=== PATIENT | female | born 1950 | race Caucasian/White ===

== ENCOUNTER 2018-11-26 02:38 | Inpatient (IN) | payer BC, MEDICARE, OTHER ==
[2018-11-26] MEDS ORDERED: SODIUM CHLORIDE 0.9% 1,000 ML IV STA (03:00)
[2018-11-26 03:17] LABS: Basophils # (A) 0.1 k/uL (0-0.2); Basophils % (A) 1 %; Eosinophils # (A) 0.2 k/uL (0-0.7); Eosinophils % (A) 3 %; HCT 28.9 % (34.0-46.0); HGB 8.9 gm/dL (11.4-16.0); Hypochromasia Moderate; Lymphocytes # (A) 2.1 k/uL (1.0-4.8); Lymphocytes % (A) 27 %; MCH 26.7 pg (25.0-35.0); MCV 86.2 fL (80.0-100.0); Mean Platelet Volume 7.4; Monocytes # (A) 0.4 k/uL (0-1.0); Monocytes % (A) 5 %; Neutrophils # (A) 4.9 k/uL (1.3-7.7); Neutrophils % (A) 63 %; Platelet Count 309 k/uL (150-450); Poikilocytosis Slight; RBC 3.35 m/uL (3.80-5.40); RDW 15.9 % (11.5-15.5); WBC 7.9 k/uL (3.8-10.6)
--- NOTE | 2018-11-26 03:17 | ED ---
General Adult HPI - General Chief complaint: Chest Pain Stated complaint: chest pain Source: patient Mode of arrival: ambulatory Limitations: no limitations - Related Data Home Medications Medication Instructions Recorded Confirmed ALPRAZolam [Xanax] 0.5 mg PO TID PRN 03/06/14 03/06/14 Citalopram Hydrobromide [CeleXA] 10 mg PO DAILY 03/06/14 03/06/14 Ergocalciferol [Vitamin D2 50,000 unit PO Q7D 03/06/14 03/06/14 (DRISDOL)] Famotidine [Pepcid] 20 mg PO BID 03/06/14 03/06/14 Insulin Aspart [NovoLOG Flexpen] 8 units SQ AC-SUPPER 03/06/14 03/06/14 Insulin Aspart [NovoLOG Flexpen] 20 units SQ AC-BRKFST 03/06/14 03/06/14 Insulin Aspart [NovoLOG Flexpen] 30 units SQ AC-LUNCH 03/06/14 03/06/14 Insulin Detemir [Levemir] 66 units SQ HS 03/06/14 03/06/14 Previous Rx's Medication Instructions Recorded Aspirin EC [Ecotrin Low Dose] 162 mg PO DAILY #60 tablet.dr 03/10/14 Docusate [Colace] 100 mg PO DAILY #30 cap 03/10/14 Enalapril [Vasotec] 10 mg PO BID #60 tab 03/10/14 Furosemide [Lasix] 40 mg PO DAILY #7 tab 03/10/14 HYDROcodone/APAP 5-325MG [[place] 1 - 2 each PO Q4HR PRN #30 tab 03/10/14 5-325] Metoprolol Tartrate [Lopressor] 25 mg PO BID #60 tab 03/10/14 Potassium Chloride ER [K-Dur 20] 20 meq PO BID #14 tab.er.prt 03/10/14 Rivaroxaban [Xarelto] 15 mg PO AC-SUPPER #30 tab 03/10/14 Allergies Allergy/AdvReac Type Severity Reaction Status Date / Time Environmental Allergy Unknown Uncoded 03/05/14 14:01 Review of Systems ROS Statement: Those systems with pertinent positive or pertinent negative responses have been documented in the HPI. ROS Other: All systems not noted in ROS Statement are negative. Past Medical History Past Medical History: Coronary Artery Disease (CAD), Cancer, Chest Pain / Angina , Diabetes Mellitus, Eye Disorder, GERD/Reflux, Hyperlipidemia, Hypertension, Myocardial Infarction ([place]), Respiratory Disorder, Skin Disorder Additional Past Medical History / Comment(s): diverticular disorder, sob with activity, sinus problems,psoriasischronic back pain, sciatica, arthritis, cervical cancer Last Myocardial Infarction Date:: 2006 History of Any Multi-Drug Resistant Organisms: None Reported Past Surgical History: Cholecystectomy, Heart Catheterization, Orthopedic Surgery, Tubal Ligation Additional Past Surgical History / Comment(s): heart cath 2013, left knee surgeryx3, cyst removed from right shoulder, surgery for sleep apnea and polyp removed Past Anesthesia/Blood Transfusion Reactions: Postoperative Nausea & Vomiting ( PONV) Past Psychological History: Anxiety, Depression Smoking Status: Never smoker Past Alcohol Use History: None Reported Past Drug Use History: Marijuana General Exam Limitations: no limitations Course Vital Signs 11/26/18 11/26/18 02:39 03:00 Temperature 98.4 F Pulse Rate 134 H 138 H Respiratory 26 H 18 Rate Blood Pressure 190/85 O2 Sat by Pulse 99 97 Oximetry Medical Decision Making - Medical Decision Making Dictation was produced using [employer] dictation software. please excuse any grammatical, word or spelling errors. Chief Complaint: 68-year-old female chief complaint of chest pain and dyspnea. History of Present Illness: Is is 68-year-old female. She has multiple comorbidities including coronary artery disease, CABG, dyslipidemia, hypertension. Patient states that today her main complaint is chest pressure and dyspnea. Patient denies any history of asthma or COPD. Does not have any other lung issues. Patient denies any history of blood clot. Reports that over the last 2 days she is having worsening symptoms. Everyone in her household was struck by influenza recently. She does have rhinorrhea. She says her chest pain is pressure-like sensation over her anterior chest. No radiation to the jaw or shoulders. No associated diaphoresis or nausea. She states she went outside which worsened her symptoms. Patient also has been having severe diarrhea recently. States that her diarrhea is watery she denies any abdominal tenderness. The ROS documented in this emergency department record has been reviewed and confirmed by me. Those systems with pertinent positive or negative responses have been documented in the HPI. All other systems are other negative and/or noncontributory. PHYSICAL EXAM: General Impression: Alert and oriented x3, not in acute distress HEENT: Normocephalic atraumatic, extra-ocular movements intact, pupils equal and reactive to light bilaterally, dry mucous membranes Cardiovascular: Heart regular rate and rhythm, S1&S2 audible, no murmurs, rubs or gallops Chest: Lungs clear to auscultation bilaterally, no rhonchi, no wheeze, no rales Abdomen: Bowel sounds present, abdomen soft, non-tender, non-distended, no organomegaly, obese Musculoskeletal: Pulses present and equal in all extremities, no peripheral edema Motor: Power 5/5 bilaterally, no focal deficits noted Neurological: CN II-XII grossly intact, no focal motor or sensory deficits noted Skin: Intact with no visualized rashes Psych: Normal affect and mood ED course: 68-year-old female presents with chief complaint of chest pain, dyspnea and diarrhea. Vital signs upon arrival shows heart rate of 134, respiratory rate of 26, blood pressure 190/85, rest of vital signs within acceptable limits. EKG shows sinus tachycardia with a rate of 138, QTC of 548. VT interval 182, QRS 92. Laboratory evaluation obtained. CBC unremarkable. Patient's INR is slightly supratherapeutic with an INR of 5.4. Metabolic panel shows a bump in renal markers with a creatinine 1.8. Patient has history of 0.8 creatinine. Lactic acid is 2.6. Magnesium 1.5. Troponin of 0.037, BNP of 2800. This likely troponin leak from possible new onset heart failure. Urinalysis shows findings of UTI with 35 wbc's. Patient treated with azithromycin and ceftriaxone. Patient's clinical presentation is suspicious for both pneumonia and new-onset CHF. Patient does report symptoms of orthopnea , swelling of the bilateral lower extremities. Patient has not had a cardiac ultrasound in several years. Patient's Lasix for diuresis and subungual nitroglycerin for pressure management. Nitropaste is applied. Patient be admitted to Dr. Nelson's team who is english composition teacher for Dr. Zurita. Patient given aspirin. We will order severe troponins as well. She is elevated QTC is likely secondary to hypomagnesemia. Patient given IV magnesium. - Lab Data Result diagrams: 11/26/18 02:58 11/26/18 02:58 Lab Results 11/26/18 11/26/18 11/26/18 Range/Units 02:58 02:58 02:58 WBC 7.9 (3.8-10.6) k/uL RBC 3.35 L (3.80-5.40) m/uL Hgb 8.9 L (11.4-16.0) gm/dL Hct 28.9 L (34.0-46.0) % MCV 86.2 (80.0-100.0) fL MCH 26.7 (25.0-35.0) pg MCHC 31.0 (31.0-37.0) g/dL RDW 15.9 H (11.5-15.5) % Plt Count 309 (150-450) k/uL Neutrophils % 63 % Lymphocytes % 27 % Monocytes % 5 % Eosinophils % 3 % Basophils % 1 % Neutrophils # 4.9 (1.3-7.7) k/uL Lymphocytes # 2.1 (1.0-4.8) k/uL Monocytes # 0.4 (0-1.0) k/uL Eosinophils # 0.2 (0-0.7) k/uL Basophils # 0.1 (0-0.2) k/uL Hypochromasia Moderate Poikilocytosis Slight PT (9.0-12.0) sec INR (<1.2) APTT (22.0-30.0) sec D-Dimer (<0.60) mg/L FEU Sodium 141 (137-145) mmol/L Potassium 3.9 (3.5-5.1) mmol/L Chloride 107 (98-107) mmol/L Carbon Dioxide 25 (22-30) mmol/L Anion Gap 9 mmol/L BUN 25 H (7-17) mg/dL Creatinine 1.80 H (0.52-1.04) mg/dL Est GFR (CKD-EPI)AfAm 33 (>60 ml/min/1.73 sqM) Est GFR (CKD-EPI)NonAf 29 (>60 ml/min/1.73 sqM) Glucose 251 H (74-99) mg/dL Plasma Lactic Acid Stu (0.7-2.0) mmol/L Calcium 9.1 (8.4-10.2) mg/dL Magnesium 1.5 L (1.6-2.3) mg/dL Total Bilirubin 0.7 (0.2-1.3) mg/dL AST 26 (14-36) U/L ALT 30 (9-52) U/L Alkaline Phosphatase 89 (38-126) U/L Total Creatine Kinase 169 H (30-135) U/L CK-MB (CK-2) 1.6 (0.0-2.4) ng/mL CK-MB (CK-2) Rel Index 0.9 Troponin I 0.037 H* (0.000-0.034) ng/mL NT-Pro-B Natriuret Pep pg/mL Total Protein 6.3 (6.3-8.2) g/dL Albumin 3.6 (3.5-5.0) g/dL Lipase 103 (23-300) U/L Urine Color Urine Appearance (Clear) Urine pH (5.0-8.0) Ur Specific [place] (1.001-1.035) Urine Protein (Negative) Urine Glucose (UA) (Negative) Urine Ketones (Negative) Urine Blood (Negative) Urine Nitrite (Negative) Urine Bilirubin (Negative) Urine Urobilinogen (<2.0) mg/dL Ur Leukocyte Esterase (Negative) Urine RBC (0-5) /hpf Urine WBC (0-5) /hpf Ur Squamous Epith Cells (0-4) /hpf Urine Bacteria (None) /hpf Hyaline Casts (0-2) /lpf Urine Mucus (None) /hpf 11/26/18 11/26/18 11/26/18 Range/Units 02:58 02:58 02:58 WBC (3.8-10.6) k/uL RBC (3.80-5.40) m/uL Hgb (11.4-16.0) gm/dL Hct (34.0-46.0) % MCV (80.0-100.0) fL MCH (25.0-35.0) pg MCHC (31.0-37.0) g/dL RDW (11.5-15.5) % Plt Count (150-450) k/uL Neutrophils % % Lymphocytes % % Monocytes % % Eosinophils % % Basophils % % Neutrophils # (1.3-7.7) k/uL Lymphocytes # (1.0-4.8) k/uL Monocytes # (0-1.0) k/uL Eosinophils # (0-0.7) k/uL Basophils # (0-0.2) k/uL Hypochromasia Poikilocytosis PT 52.2 H (9.0-12.0) sec INR 5.4 H* (<1.2) APTT 43.5 H (22.0-30.0) sec D-Dimer 0.21 (<0.60) mg/L FEU Sodium (137-145) mmol/L Potassium (3.5-5.1) mmol/L Chloride (98-107) mmol/L Carbon Dioxide (22-30) mmol/L Anion Gap mmol/L BUN (7-17) mg/dL Creatinine (0.52-1.04) mg/dL Est GFR (CKD-EPI)AfAm (>60 ml/min/1.73 sqM) Est GFR (CKD-EPI)NonAf (>60 ml/min/1.73 sqM) Glucose (74-99) mg/dL Plasma Lactic Acid Stu 2.6 H* (0.7-2.0) mmol/L Calcium (8.4-10.2) mg/dL Magnesium (1.6-2.3) mg/dL Total Bilirubin (0.2-1.3) mg/dL AST (14-36) U/L ALT (9-52) U/L Alkaline Phosphatase (38-126) U/L Total Creatine Kinase (30-135) U/L CK-MB (CK-2) (0.0-2.4) ng/mL CK-MB (CK-2) Rel Index Troponin I (0.000-0.034) ng/mL NT-Pro-B Natriuret Pep 2800 pg/mL Total Protein (6.3-8.2) g/dL Albumin (3.5-5.0) g/dL Lipase (23-300) U/L Urine Color Urine Appearance (Clear) Urine pH (5.0-8.0) Ur Specific [place] (1.001-1.035) Urine Protein (Negative) Urine Glucose (UA) (Negative) Urine Ketones (Negative) Urine Blood (Negative) Urine Nitrite (Negative) Urine Bilirubin (Negative) Urine Urobilinogen (<2.0) mg/dL Ur Leukocyte Esterase (Negative) Urine RBC (0-5) /hpf Urine WBC (0-5) /hpf Ur Squamous Epith Cells (0-4) /hpf Urine Bacteria (None) /hpf Hyaline Casts (0-2) /lpf Urine Mucus (None) /hpf 11/26/18 Range/Units 03:39 WBC (3.8-10.6) k/uL RBC (3.80-5.40) m/uL Hgb (11.4-16.0) gm/dL Hct (34.0-46.0) % MCV (80.0-100.0) fL MCH (25.0-35.0) pg MCHC (31.0-37.0) g/dL RDW (11.5-15.5) % Plt Count (150-450) k/uL Neutrophils % % Lymphocytes % % Monocytes % % Eosinophils % % Basophils % % Neutrophils # (1.3-7.7) k/uL Lymphocytes # (1.0-4.8) k/uL Monocytes # (0-1.0) k/uL Eosinophils # (0-0.7) k/uL Basophils # (0-0.2) k/uL Hypochromasia Poikilocytosis PT (9.0-12.0) sec INR (<1.2) APTT (22.0-30.0) sec D-Dimer (<0.60) mg/L FEU Sodium (137-145) mmol/L Potassium (3.5-5.1) mmol/L Chloride (98-107) mmol/L Carbon Dioxide (22-30) mmol/L Anion Gap mmol/L BUN (7-17) mg/dL Creatinine (0.52-1.04) mg/dL Est GFR (CKD-EPI)AfAm (>60 ml/min/1.73 sqM) Est GFR (CKD-EPI)NonAf (>60 ml/min/1.73 sqM) Glucose (74-99) mg/dL Plasma Lactic Acid Stu (0.7-2.0) mmol/L Calcium (8.4-10.2) mg/dL Magnesium (1.6-2.3) mg/dL Total Bilirubin (0.2-1.3) mg/dL AST (14-36) U/L ALT (9-52) U/L Alkaline Phosphatase (38-126) U/L Total Creatine Kinase (30-135) U/L CK-MB (CK-2) (0.0-2.4) ng/mL CK-MB (CK-2) Rel Index Troponin I (0.000-0.034) ng/mL NT-Pro-B Natriuret Pep pg/mL Total Protein (6.3-8.2) g/dL Albumin (3.5-5.0) g/dL Lipase (23-300) U/L Urine Color Yellow Urine Appearance Cloudy H (Clear) Urine pH 5.5 (5.0-8.0) Ur Specific [place] 1.019 (1.001-1.035) Urine Protein 2+ H (Negative) Urine Glucose (UA) 1+ H (Negative) Urine Ketones Negative (Negative) Urine Blood Negative (Negative) Urine Nitrite Negative (Negative) Urine Bilirubin Negative (Negative) Urine Urobilinogen <2.0 (<2.0) mg/dL Ur Leukocyte Esterase Negative (Negative) Urine RBC 12 H (0-5) /hpf Urine WBC 35 H (0-5) /hpf Ur Squamous Epith Cells 12 H (0-4) /hpf Urine Bacteria Few H (None) /hpf Hyaline Casts 5 H (0-2) /lpf Urine Mucus Rare H (None) /hpf Disposition Clinical Impression: CHRISTOPHER (acute kidney injury), Acute decompensated heart failure, Dehydration, Pneumonia Disposition: ADMITTED IP TO THIS HOSP Condition: Fair Referrals: Dawit Frias MD [Primary Care Provider] - 1-2 days Decision Time: 04:13
--- NOTE | 2018-11-26 03:24 | XR ---
EXAMINATION TYPE: XR chest 2V DATE OF EXAM: 11/26/2018 COMPARISON: 03/09/2014 HISTORY: Chest pain TECHNIQUE: Frontal and lateral views of the chest are obtained. FINDINGS: Heart is slightly enlarged. There is some infiltrate at the left cardiac border. There is no heart failure. There are sternal wires. There are chest leads. Bony thorax is intact. IMPRESSION: There is some infiltrate in the left lower lobe consistent with pneumonia that is probab ly new compared to old chest x-ray. No heart failure seen. Mild cardiomegaly. There is clearing of sm all left pleural effusion compared to old exam.
[2018-11-26] MEDS ORDERED: AZITHROMYCIN 500 MG in DEXTROSE 5% IN WATER 250 ML IVPB STA ×2 (03:27)
[2018-11-26 03:29] LABS: Albumin 3.6 g/dL (3.5-5.0); Calcium 9.1 mg/dL (8.4-10.2); Magnesium 1.5 mg/dL (1.6-2.3); Potassium 3.9 mmol/L (3.5-5.1); Total Bilirubin 0.7 mg/dL (0.2-1.3); Total Protein 6.3 g/dL (6.3-8.2)
[2018-11-26 03:36] LABS: D-Dimer 0.21 mg/L FEU (<0.60); Partial Thromboplastin Time 43.5 sec (22.0-30.0); Prothrombin Time 52.2 sec (9.0-12.0)
[2018-11-26 03:39] LABS: INR 5.4 (<1.2)
[2018-11-26 03:45] LABS: Creatine Kinase MB 1.6 ng/mL (0.0-2.4)
[2018-11-26 03:48] LABS: Troponin I 0.037 ng/mL (0.000-0.034)
[2018-11-26] MEDS ORDERED: METOCLOPRAMIDE 5 MG/ML 2 ML VIAL IVP STA (03:58)
[2018-11-26 04:01] LABS: Appearance,Urine Cloudy (Clear); Bacteria,Urine Few /hpf; Bilirubin,Urine Negative (Negative); Blood,Urine Negative (Negative); Color,Urine Yellow; Glucose,Urine (UA) 1+ (Negative); Hyaline Casts,Urine 5 /lpf (0-2); Ketones,Urine Negative (Negative); Leukocyte Esterase,Urine Negative (Negative); Mucus,Urine Rare /hpf; Nitrite,Urine Negative (Negative); PH, Urine 5.5 (5.0-8.0); Protein,Urine 2+ (Negative); RBC,Urine 12 /hpf (0-5); Specific Gravity,Urine 1.019 (1.001-1.035); Squamous Epithelial Cell,Urine 12 /hpf (0-4); Urobilinogen,Urine <2.0 mg/dL (<2.0)
[2018-11-26] MEDS ORDERED: NITROGLYCERIN SL TABS 0.4 MG TAB SUBLINGUAL STA (04:07)
[2018-11-26] MEDS ORDERED: FUROSEMIDE 10 MG/ML 4 ML VIAL IV ONE (04:09)
[2018-11-26] MEDS ORDERED: NITROGLYCERIN OINT 1 INCH/GM PACKET TOPICAL STA (04:11)
[2018-11-26] MEDS ORDERED: ASPIRIN 81 MG PO STA (04:12)
[2018-11-26] MEDS ORDERED: NALOXONE 0.4 MG/ML 1 ML VIAL IV PRN (04:13)
[2018-11-26] MEDS ORDERED: ACETAMINOPHEN TAB 325 MG TAB PO PRN (04:13)
[2018-11-26] MEDS: MAGNESIUM SULFATE-D5W PMX 1 GM in DEXTROSE/WATER 1 100ML.BAG IVPB SCH ×4 (04:59→13:01)
[2018-11-26] MEDS ORDERED: METOPROLOL TARTRATE 5 MG/5 ML VIAL IVP STA (05:37)
[2018-11-26 06:38] VITALS: BMI 52.1
--- NOTE | 2018-11-26 08:33 | P.CRDCN ---
History of Present Illness Consult date: 11/26/18 Requesting physician: Dawit Frias Consult reason: congestive heart failure Chief complaint: Shortness of breath, leg swelling, nausea and vomiting History of present illness: This is a pleasant 68-year-old female with known history of coronary artery disease and prior bypass surgery, history of diabetes, hypertension, hyperlipidemia, paroxysmal atrial fibrillation for which she takes Coumadin, presents to the hospital with symptoms of progressively worsening shortness of breath, PND and orthopnea, bilateral lower extremity edema, as well as symptoms of diarrhea and vomiting. According to the patient the flu has recently gone through her house, she had been dealing with an upper respiratory infection as well. She states that for the past few days she's been progressively more short of breath, and has been very weak. For these reasons she came to the emergency room for further evaluation and treatment. X-ray on admission revealed infiltrate in the left lower lobe consistent with pneumonia, no heart failure, mild cardiomegaly. EKG on presentation here showed a sinus tachycardia with nonspecific ST-T wave changes. I pressure on arrival here 190/ 85, heart rate 1:30, 99% on room air. Blood pressure this morning 139/68 with a heart rate in the 130s. White blood cell count 7.9, hemoglobin 8.9, platelet count 309. INR on admission 5.4, d-dimer 0.2, sodium 141, potassium 3.9, BUN 25 and creatinine 1.8. NEC and level I.5, troponin 0.037, BNP level 2800. At the time of my examination this morning, patient is lying flat in bed, does state that her breathing is ready somewhat improved. She continues to have bilateral edema. According to the patient, she states that she did eat a significant amount of salt over the past couple of days prior to admission. Past Medical History Past Medical History: Coronary Artery Disease (CAD), Cancer, Chest Pain / Angina , Diabetes Mellitus, Eye Disorder, GERD/Reflux, Hyperlipidemia, Hypertension, Myocardial Infarction ([place]), Respiratory Disorder, Skin Disorder Additional Past Medical History / Comment(s): diverticular disorder, sob with activity, sinus problems,psoriasischronic back pain, sciatica, arthritis, cervical cancer Last Myocardial Infarction Date:: 2013 History of Any Multi-Drug Resistant Organisms: None Reported Past Surgical History: Cholecystectomy, Coronary Bypass/CABG, Heart Catheterization, Orthopedic Surgery, Tubal Ligation Additional Past Surgical History / Comment(s): heart cath 2014, left knee surgeryx3, cyst removed from right shoulder, surgery for sleep apnea and polyp removed, triple bypass surgery, patient states "she has had a surgery in her throat to help her breathe easier". Past Anesthesia/Blood Transfusion Reactions: Postoperative Nausea & Vomiting ( PONV) Past Psychological History: Anxiety, Depression Smoking Status: Never smoker Past Alcohol Use History: None Reported Past Drug Use History: Marijuana - Past Family History Daughter(s) Family Medical History: Diabetes Mellitus, Hyperlipidemia, Hypertension Mother Family Medical History: Diabetes Mellitus Additional Family Medical History / Comment(s): Patient states "she from a heart attack". Medications and Allergies Home Medications Medication Instructions Recorded Confirmed Type ALPRAZolam [Xanax] 0.5 mg PO TID PRN 03/06/14 03/06/14 History Citalopram Hydrobromide [CeleXA] 10 mg PO DAILY 03/06/14 03/06/14 History Ergocalciferol [Vitamin D2 50,000 unit PO Q7D 03/06/14 03/06/14 History (MICHAEL)] Famotidine [Pepcid] 20 mg PO BID 03/06/14 03/06/14 History Insulin Aspart [NovoLOG Flexpen] 8 units SQ AC-SUPPER 03/06/14 03/06/14 History Insulin Aspart [NovoLOG Flexpen] 20 units SQ AC-BRKFST 03/06/14 03/06/14 History Insulin Aspart [NovoLOG Flexpen] 30 units SQ AC-LUNCH 03/06/14 03/06/14 History Insulin Detemir [Levemir] 66 units SQ HS 03/06/14 03/06/14 History Aspirin EC [Ecotrin Low Dose] 162 mg PO DAILY #60 tablet. 03/10/14 Rx Docusate [Colace] 100 mg PO DAILY #30 cap 03/10/14 Rx Enalapril [Vasotec] 10 mg PO BID #60 tab 03/10/14 Rx Furosemide [Lasix] 40 mg PO DAILY #7 tab 03/10/14 Rx HYDROcodone/APAP 5-325MG [[place] 1 - 2 each PO Q4HR PRN #30 tab 03/10/14 Rx 5-325] Metoprolol Tartrate [Lopressor] 25 mg PO BID #60 tab 03/10/14 Rx Potassium Chloride ER [K-Dur 20] 20 meq PO BID #14 tab.er.prt 03/10/14 Rx Rivaroxaban [Xarelto] 15 mg PO AC-SUPPER #30 tab 03/10/14 Rx Allergies Allergy/AdvReac Type Severity Reaction Status Date / Time Environmental Allergy Unknown Uncoded 03/05/14 14:01 Physical Exam Vitals: Vital Signs Temp Pulse Pulse Resp BP BP Pulse Ox 11/26/18 06:50 97.6 F 139 H 22 139/68 95 11/26/18 04:41 134 H 16 169/88 97 11/26/18 04:18 133 H 16 159/101 99 11/26/18 03:00 138 H 18 97 11/26/18 02:39 98.4 F 134 H 26 H 190/85 99 Intake and Output 11/25/18 11/26/18 11/26/18 22:59 06:59 14:59 Other: Weight 129.27 kg PHYSICAL EXAMINATION: GENERAL: 68-year-old female in no acute distress at the time of my examination HEENT: Head is atraumatic, normocephalic. Pupils equal, round. Sclera anicteric. Conjunctiva are clear. Mucous membranes of the mouth are moist. Neck is supple. There is no elevated jugular venous pressure. No carotid bruit is heard. HEART EXAMINATION: Heart S1, S2 normal. No murmur or gallop heard. CHEST EXAMINATION: Lungs are clear with diminished air entry to bilateral bases. ABDOMEN: Soft, obese, nontender. Bowel sounds are heard. No organomegaly noted. EXTREMITIES: 1+ peripheral pulses with 1-2+ evidence of peripheral edema and no calf tenderness noted. Small ulcerations bilaterally in the lower extremities noted NEUROLOGIC patient is awake, alert and oriented 3 . . Results 11/26/18 02:58 11/26/18 02:58 Cardiac Enzymes 11/26/18 11/26/18 Range/Units 02:58 02:58 AST 26 (14-36) U/L CK-MB (CK-2) 1.6 (0.0-2.4) ng/mL Troponin I 0.037 H* (0.000-0.034) ng/mL Coagulation 11/26/18 Range/Units 02:58 PT 52.2 H (9.0-12.0) sec APTT 43.5 H (22.0-30.0) sec CBC 11/26/18 Range/Units 02:58 WBC 7.9 (3.8-10.6) k/uL RBC 3.35 L (3.80-5.40) m/uL Hgb 8.9 L (11.4-16.0) gm/dL Hct 28.9 L (34.0-46.0) % Plt Count 309 (150-450) k/uL Comprehensive Metabolic Panel 11/26/18 Range/Units 02:58 Sodium 141 (137-145) mmol/L Potassium 3.9 (3.5-5.1) mmol/L Chloride 107 (98-107) mmol/L Carbon Dioxide 25 (22-30) mmol/L BUN 25 H (7-17) mg/dL Creatinine 1.80 H (0.52-1.04) mg/dL Glucose 251 H (74-99) mg/dL Calcium 9.1 (8.4-10.2) mg/dL AST 26 (14-36) U/L ALT 30 (9-52) U/L Alkaline Phosphatase 89 (38-126) U/L Total Protein 6.3 (6.3-8.2) g/dL Albumin 3.6 (3.5-5.0) g/dL Current Medications Generic Name Dose Route Start Last Admin Trade Name Freq PRN Reason Stop Dose Admin Acetaminophen 650 mg 11/26/18 04:13 Tylenol Tab PO Q6HR PRN Mild Pain or Fever > 100.5 Naloxone HCl 0.2 mg 11/26/18 04:13 Narcan IV Q2M PRN Opioid Reversal Pantoprazole Sodium 40 mg 11/26/18 09:00 Protonix IV DAILY KILEY Intake and Output 11/25/18 11/26/18 11/26/18 22:59 06:59 14:59 Other: Weight 129.27 kg 11/26/18 02:58 11/26/18 02:58 EKG Interpretations (text) EKG shows a sinus tachycardia with nonspecific ST-T wave changes Assessment and Plan Plan: Assessment and plan #1 congestive heart failure, LV function unknown, BNP level 2800. #2 recent upper respiratory infection with possible pneumonia #3 paroxysmal atrial fibrillation, on Coumadin for anticoagulation, INR elevated at 5.4 #4 renal insufficiency #5 elevated plasma lactic acid level #6 hypomagnesemia #7 abnormal troponin, could be secondary to supply and demand mismatch, patient denies having any chest discomfort. #8 known history of coronary artery disease with prior bypass surgery #9 accelerated hypertension #10 diabetes #11 hyperlipidemia Plan We will obtain an echocardiogram with Doppler study. We'll also obtain 2 subsequent troponins. Coumadin is on hold because of elevated INR. We'll put the patient on a baby aspirin daily, changed to IV Lasix for 24 hours, decrease lisinopril to 20 mg daily she is currently on 20 mg by mouth twice a day, increase dose of beta rafael for more optimal blood pressure and heart rate control. Further recommendations to follow. DNP note has been reviewed, I agree with a documented findings and plan of care. Patient was seen and examined.
--- NOTE | 2018-11-26 08:47 | P.HPIM ---
History of Present Illness Chief complaint Shortness of breath and chest pain. History of present illness Patient presented early this morning to the emergency room with complaints of increasing shortness of breath. Inability to walk cause of being tired. Some left upper chest pain that radiated to the back when she was lying down. Apparently her symptoms have gradually worsened over the past 1-2 days prior to admission. The pain became worse the morning of admission and she was brought to the emergency room. Patient has had some cough. No definite fevers. Apparently her and her family had a flulike illness several days prior to this starting. She is also had some loose stools. She denies any blood in her stools or melena. She has had a couple episodes of nausea and vomiting but denies abdominal pain. Past medical history Patient has had previous coronary artery bypass surgery back in 2013. Diabetes, on insulin for control. Hypertension Obesity Hyperlipidemia Chronic kidney disease stage III History of paroxysmal atrial fibrillation History of anxiety and depression Chronic pain for which she is on [place] which consists of arthritic pains of the knees and back. Surgical history includes the coronary artery bypass surgery in 2013, previous hysterectomy and cholecystectomy. Left knee surgery. No definite known ALLERGIES Home medications Xarelto 15 mg before supper Potassium chloride 20 mEq twice a day Lopressor 25 mg twice a day Levemir 66 units subcu at at bedtime NovoLog flex plan 20 units before breakfast, 30 units before lunch and 8 units before supper [place] for chronic pain 5-325 one to 2 tablets every 4 hours as needed Lasix 40 mg daily Pepcid 20 mg twice a day Vitamin D2 50,000 units weekly Enalapril 10 mg twice a day Colace 100 mg daily Celexa 10 mg daily Aspirin 162 mg daily Xanax 0.53 times a day for anxiety as needed Review of systems As mentioned in the history of present illness. No unusual headaches or visual disturbances. Some cough with minimal phlegm production. Dyspnea on exertion. Chest pain when lying flat. No chest pain with exertion. Nausea and diarrhea as mentioned above. No hematochezia or hematemesis. Family history Is positive for diabetes Social history No history of smoking. No excessive alcohol usage. Patient apparently lives with her daughter. Her several years ago. Physical examination Patient is aroused lying in bed. She does not appear to be in any acute distress. Temperature is 97.6 with a pulse of 139, respirations 22 and blood pressure 139/ 68 with a 95% saturation on 2 L nasal cannula Head is atraumatic. She does look mildly pale. Neck as not stiff. No definite adenopathy or thyromegaly detected. Lungs are generally clear. Heart tones were tachycardic. No definite murmur appreciated. Abdomen is soft and nontender without rebound, guarding or masses. Pelvic and breast exam deferred. Extremities revealed grade 1-2 edema bilaterally. No calf tenderness. Homans negative. Neurologically she is alert and oriented. No cranial nerve deficit. No focal weakness noted. Laboratory White count was 7.9 with a hemoglobin of 8.9 and a platelet count of 309 INR is elevated at 5.4. D-dimer is 0.21. PTT also elevated at 43.5. Sodium 141 with potassium 3.9. BUN of 25 with creatinine of 1.8 given her GFR of 29. Random blood sugar was 251. Lactic acid level was 2.6. Magnesium mildly low at 1.5 with a calcium of 9.1 CK 169 with a troponin of 0.037. Albumin normal at 3.6. Urine is reported as cloudy with 35 white cells but leukocyte Estrace was negative. Chest x-ray showed what appears to be an infiltrate in the left lower lobe. Mild cardiomegaly. EKG appears to show a supraventricular tachycardia with a heart rate of 138. Impressions 1. Left lower lobe pneumonia on chest x-ray. 2. Supraventricular tachycardia with a heart rate of 138. 3. Chest pain possibly related to #1. Question underlying angina. 4. Elevated coagulation studies on aspirin and Xarelto. 5. Anemia possibly related to renal failure. Other etiologies possible. 6. Chronic kidney disease stage III-4 7. Diabetes 8. Hypertension 9. Hyperlipidemia 10. Anxiety and depression 11. Obesity 12. Chronic pain from osteoarthritis, on [place]. 13. Possible underlying urinary tract infection Plan The patient has been admitted. Antibiotics to be initiated pending cultures. Some of patient's home medications were renewed. Continue beta rafael and CA inhibitor. We'll hold aspirin and Xarelto Cardiology consult Labs to workup anemia. Further recommendations pending clinical response and results of above. Past Medical History Past Medical History: Coronary Artery Disease (CAD), Cancer, Chest Pain / Angina , Diabetes Mellitus, Eye Disorder, GERD/Reflux, Hyperlipidemia, Hypertension, Myocardial Infarction (CA), Respiratory Disorder, Skin Disorder Additional Past Medical History / Comment(s): diverticular disorder, sob with activity, sinus problems,psoriasischronic back pain, sciatica, arthritis, cervical cancer Last Myocardial Infarction Date:: 2013 History of Any Multi-Drug Resistant Organisms: None Reported Past Surgical History: Cholecystectomy, Coronary Bypass/CABG, Heart Catheterization, Orthopedic Surgery, Tubal Ligation Additional Past Surgical History / Comment(s): heart cath 2014, left knee surgeryx3, cyst removed from right shoulder, surgery for sleep apnea and polyp removed, triple bypass surgery, patient states "she has had a surgery in her throat to help her breathe easier". Past Anesthesia/Blood Transfusion Reactions: Postoperative Nausea & Vomiting ( PONV) Past Psychological History: Anxiety, Depression Smoking Status: Never smoker Past Alcohol Use History: None Reported Past Drug Use History: Marijuana - Past Family History Daughter(s) Family Medical History: Diabetes Mellitus, Hyperlipidemia, Hypertension Mother Family Medical History: Diabetes Mellitus Additional Family Medical History / Comment(s): Patient states "she from a heart attack". Medications and Allergies Home Medications Medication Instructions Recorded Confirmed Type ALPRAZolam [Xanax] 0.5 mg PO TID PRN 03/06/14 03/06/14 History Citalopram Hydrobromide [CeleXA] 10 mg PO DAILY 03/06/14 03/06/14 History Ergocalciferol [Vitamin D2 50,000 unit PO Q7D 03/06/14 03/06/14 History (MICHAEL)] Famotidine [Pepcid] 20 mg PO BID 03/06/14 03/06/14 History Insulin Aspart [NovoLOG Flexpen] 8 units SQ AC-SUPPER 03/06/14 03/06/14 History Insulin Aspart [NovoLOG Flexpen] 20 units SQ AC-BRKFST 03/06/14 03/06/14 History Insulin Aspart [NovoLOG Flexpen] 30 units SQ AC-LUNCH 03/06/14 03/06/14 History Insulin Detemir [Levemir] 66 units SQ HS 03/06/14 03/06/14 History Aspirin EC [Ecotrin Low Dose] 162 mg PO DAILY #60 tablet.dr 03/10/14 Rx Docusate [Colace] 100 mg PO DAILY #30 cap 03/10/14 Rx Enalapril [Vasotec] 10 mg PO BID #60 tab 03/10/14 Rx Furosemide [Lasix] 40 mg PO DAILY #7 tab 03/10/14 Rx HYDROcodone/APAP 5-325MG [[place] 1 - 2 each PO Q4HR PRN #30 tab 03/10/14 Rx 5-325] Metoprolol Tartrate [Lopressor] 25 mg PO BID #60 tab 03/10/14 Rx Potassium Chloride ER [K-Dur 20] 20 meq PO BID #14 tab.er.prt 03/10/14 Rx Rivaroxaban [Xarelto] 15 mg PO AC-SUPPER #30 tab 03/10/14 Rx Allergies Allergy/AdvReac Type Severity Reaction Status Date / Time Environmental Allergy Unknown Uncoded 03/05/14 14:01 Physical Exam Vitals: Vital Signs Temp Pulse Pulse Resp BP BP Pulse Ox 11/26/18 06:50 97.6 F 139 H 22 139/68 95 11/26/18 04:41 134 H 16 169/88 97 11/26/18 04:18 133 H 16 159/101 99 11/26/18 03:00 138 H 18 97 11/26/18 02:39 98.4 F 134 H 26 H 190/85 99 Intake and Output 11/25/18 11/26/18 11/26/18 22:59 06:59 14:59 Other: Weight 129.27 kg Results CBC & Chem 7: 11/26/18 02:58 11/26/18 02:58 Labs: Abnormal Lab Results - Last 24 Hours (Table) 11/26/18 11/26/18 11/26/18 Range/Units 02:58 02:58 02:58 RBC 3.35 L (3.80-5.40) m/uL Hgb 8.9 L (11.4-16.0) gm/dL Hct 28.9 L (34.0-46.0) % RDW 15.9 H (11.5-15.5) % PT (9.0-12.0) sec INR (<1.2) APTT (22.0-30.0) sec BUN 25 H (7-17) mg/dL Creatinine 1.80 H (0.52-1.04) mg/dL Glucose 251 H (74-99) mg/dL Plasma Lactic Acid Stu (0.7-2.0) mmol/L Magnesium 1.5 L (1.6-2.3) mg/dL Total Creatine Kinase 169 H (30-135) U/L Troponin I 0.037 H* (0.000-0.034) ng/mL Urine Appearance (Clear) Urine Protein (Negative) Urine Glucose (UA) (Negative) Urine RBC (0-5) /hpf Urine WBC (0-5) /hpf Ur Squamous Epith Cells (0-4) /hpf Urine Bacteria (None) /hpf Hyaline Casts (0-2) /lpf Urine Mucus (None) /hpf 11/26/18 11/26/18 11/26/18 Range/Units 02:58 02:58 03:39 RBC (3.80-5.40) m/uL Hgb (11.4-16.0) gm/dL Hct (34.0-46.0) % RDW (11.5-15.5) % PT 52.2 H (9.0-12.0) sec INR 5.4 H* (<1.2) APTT 43.5 H (22.0-30.0) sec BUN (7-17) mg/dL Creatinine (0.52-1.04) mg/dL Glucose (74-99) mg/dL Plasma Lactic Acid Stu 2.6 H* (0.7-2.0) mmol/L Magnesium (1.6-2.3) mg/dL Total Creatine Kinase (30-135) U/L Troponin I (0.000-0.034) ng/mL Urine Appearance Cloudy H (Clear) Urine Protein 2+ H (Negative) Urine Glucose (UA) 1+ H (Negative) Urine RBC 12 H (0-5) /hpf Urine WBC 35 H (0-5) /hpf Ur Squamous Epith Cells 12 H (0-4) /hpf Urine Bacteria Few H (None) /hpf Hyaline Casts 5 H (0-2) /lpf Urine Mucus Rare H (None) /hpf Thrombosis Risk Factor Assmnt - Choose All That Apply Any of the Below Risk Factors Present?: Yes Each Factor Represents 1 point: Heart failure (<1month), Swollen legs (current) Other Risk Factors: Yes Each Risk Factor Represents 2 Points: Age 61-74 years Each Risk Factor Represents 3 Points: Family history of DVT/PE Other congenital or acquired thrombophilia - If yes, enter type in comment: No Thrombosis Risk Factor Assessment Total Risk Factor Score: 7 Thrombosis Risk Factor Assessment Level: High Risk
[2018-11-26] MEDS ORDERED: FUROSEMIDE 40 MG TAB PO SCH (09:00)
[2018-11-26] MEDS ORDERED: METOPROLOL TARTRATE 25 MG TAB PO SCH (09:00)
[2018-11-26] MEDS ORDERED: LISINOPRIL 20 MG TAB PO SCH (09:00)
[2018-11-26] MEDS: FUROSEMIDE 10 MG/ML 4 ML VIAL IV SCH ×2 (09:24→20:13)
[2018-11-26] MEDS: ASPIRIN 81 MG PO SCH (09:24)
[2018-11-26] MEDS: FAMOTIDINE 20 MG TAB PO SCH (09:24)
[2018-11-26] MEDS: CITALOPRAM HYDROBROMIDE 10 MG TAB PO SCH (09:24)
[2018-11-26] MEDS: LISINOPRIL 20 MG TAB PO SCH (09:24)
[2018-11-26] MEDS: PANTOPRAZOLE 40 MG/10 ML VIAL IV SCH (09:25)
[2018-11-26] MEDS: POTASSIUM CHLORIDE ER 20 MEQ TAB.ER PO SCH ×2 (09:25→20:12)
[2018-11-26] MEDS: METOPROLOL TARTRATE 50 MG TAB PO SCH ×3 (09:25→21:28)
[2018-11-26 09:31] LABS: Creatine Kinase MB 1.6 ng/mL (0.0-2.4)
[2018-11-26 09:36] LABS: Troponin I 0.059 ng/mL (0.000-0.034)
[2018-11-26] MEDS: ALPRAZolam 0.5 MG TAB PO PRN ×2 (11:00→17:10)
[2018-11-26 11:37] LABS: Glucose,Whole Blood 218 mg/dL (75-99)
[2018-11-26] MEDS: INSULIN ASPART 100 UNIT/ML 1 ML 10 ML VIAL SQ SCH ×3 (13:01→21:25)
[2018-11-26 15:55] LABS: Creatine Kinase MB 1.6 ng/mL (0.0-2.4)
[2018-11-26 15:58] LABS: Troponin I 0.094 ng/mL (0.000-0.034)
[2018-11-26 16:40] LABS: Glucose,Whole Blood 112 mg/dL (75-99)
--- NOTE | 2018-11-26 16:57 | ECHOF ---
Referral Reason:sob MEASUREMENTS -------- HEIGHT: 157.5 cm WEIGHT: 128.8 kg BP: 139/68 IVSd: 1.2 cm (0.6 - 1.1) LVIDd: 4.6 cm (3.9 - 5.3) LVPWd: 1.3 cm (0.6 - 1.1) IVSs: 1.9 cm LVIDs: 3.5 cm LVPWs: 1.8 cm LA Diam: 3.9 cm (2.7 - 3.8) RVIDd: 2.6 cm (< 3.3) LAESV Index (A-L): 25.52 ml/m Ao Diam: 2.7 cm (2.0 - 3.7) AV Cusp: 1.9 cm (1.5 - 2.6) EPSS: 0.4 cm RAP: 15.00 mmHg RVSP: 48.54 mmHg MV EF SLOPE: 174.72 mm/s (70 - 150) MV EXCURSION: 18.74 mm (> 18.000) FINDINGS -------- Atrial fibrillation. This was a technically difficult study with suboptimal views. The left ventricular size is normal. There is mild concentric left ventricular hypertrophy. Overa ll left ventricular systolic function is mild-moderately impaired with, an EF between 40 - 45 %. The right ventricle is normal in size. Normal LA size by volume 22+/-6 ml/m2. The right atrium is normal in size. Lumason used There is mild aortic valve sclerosis. Mild mitral annular calcification present. Mild mitral regurgitation is present. Mild tricuspid regurgitation present. There is moderate pulmonary hypertension. The right ventric ular systolic pressure, as measured by Doppler, is 48.54mmHg. Trace/mild (physiologic) pulmonic regurgitation. The aortic root size is normal. The inferior vena cava is dilated with no significant inspiratory collapse which is consistent estima stu right atrial pressure of >15 mmHg. There is no pericardial effusion. CONCLUSIONS -------- 1. Atrial fibrillation. 2. This was a technically difficult study with suboptimal views. 3. The left ventricular size is normal. 4. There is mild concentric left ventricular hypertrophy. 5. Overall left ventricular systolic function is mild-moderately impaired with, an EF between 40 - 45 %. 6. The right ventricle is normal in size. 7. Normal LA size by volume 22+/-6 ml/m2. 8. The right atrium is normal in size. 9. Lumason used 10. There is mild aortic valve sclerosis. 11. Mild mitral annular calcification present. 12. Mild mitral regurgitation is present. 13. Mild tricuspid regurgitation present. 14. There is moderate pulmonary hypertension. 15. The right ventricular systolic pressure, as measured by Doppler, is 48.54mmHg. 16. Trace/mild (physiologic) pulmonic regurgitation. 17. The aortic root size is normal. 18. The inferior vena cava is dilated with no significant inspiratory collapse which is consistent es timated right atrial pressure of >15 mmHg. 19. There is no pericardial effusion. TECHNICAL PUBLICATIONS WRITER: Anushka Pineda RDCS
[2018-11-26] MEDS: HYDROcodone/APAP 5-325MG 1 EACH TAB PO PRN (20:12)
[2018-11-26] MEDS: ATORVASTATIN 40 MG TAB PO SCH (20:12)
[2018-11-26 20:50] LABS: Glucose,Whole Blood 155 mg/dL (75-99)
[2018-11-26] MEDS ORDERED: INSULIN DETEMIR 100 UNIT/ML 10 ML VIAL SQ SCH (21:00)
[2018-11-26] MEDS: INSULIN DETEMIR 100 UNIT/ML 10 ML VIAL SQ SCH (21:26)
[2018-11-27 04:58] LABS: Iron Saturation 5.23 (12.00-45.00)
[2018-11-27 06:43] LABS: Glucose,Whole Blood 57 mg/dL (75-99)
[2018-11-27] MEDS: INSULIN ASPART 100 UNIT/ML 1 ML 10 ML VIAL SQ SCH ×4 (06:45→23:58)
[2018-11-27 07:11] LABS: Glucose,Whole Blood 46 mg/dL (75-99)
[2018-11-27 07:11] LABS: Glucose,Whole Blood 45 mg/dL (75-99)
[2018-11-27 07:33] LABS: Basophils # (A) 0.1 k/uL (0-0.2); Basophils % (A) 1 %; Eosinophils # (A) 0.4 k/uL (0-0.7); Eosinophils % (A) 4 %; HCT 30.4 % (34.0-46.0); HGB 9.5 gm/dL (11.4-16.0); Hypochromasia Marked; Lymphocytes # (A) 3.2 k/uL (1.0-4.8); Lymphocytes % (A) 33 %; MCH 26.9 pg (25.0-35.0); MCHC 31.3 g/dL (31.0-37.0); MCV 86.1 fL (80.0-100.0); Mean Platelet Volume 7.4; Monocytes # (A) 0.4 k/uL (0-1.0); Monocytes % (A) 4 %; Neutrophils # (A) 5.3 k/uL (1.3-7.7); Neutrophils % (A) 56 %; Platelet Count 320 k/uL (150-450); Poikilocytosis Slight; RBC 3.53 m/uL (3.80-5.40); RDW 15.7 % (11.5-15.5); WBC 9.5 k/uL (3.8-10.6)
[2018-11-27 07:41] LABS: INR 2.6 (<1.2); Prothrombin Time 25.3 sec (9.0-12.0)
[2018-11-27 07:42] LABS: Glucose,Whole Blood 80 mg/dL (75-99)
--- NOTE | 2018-11-27 07:45 | P.PN ---
Progress Note - Text The patient is a 68-year-old female with multiple risk factors and known coronary artery disease that presented yesterday with increasing shortness of breath and fatigue. Also some chest pressure. She has had previous coronary artery bypass in 2013. Diabetes, hypertension, obesity, hyperlipidemia, chronic kidney disease stage III, paroxysmal atrial fibrillation for which she is presently only on Coumadin and was supratherapeutic. She also has chronic pain from osteoarthritis and is on [place]. Patient states she generally feels better. Less shortness of breath. She has had some low blood sugars this morning and states at home she typically took her Levemir in the morning at 10:00. She is getting ready to eat breakfast this morning. Denies any chest pain and feels less short of breath. Last vital signs show temperature 98.8 with a pulse of 90 and blood pressure 110 /52. She is 99% saturated on room air. Lungs are generally clear anteriorly. Heart tones were regular. No unusual edema. No focal neurological deficits. Laboratory White count is 9.5 with a hemoglobin 9.5 and a platelet count of 320. Once again her blood sugar was down to 46. Repeat INR and electrolytes are pending. Patient did put out more than 2 L of fluid and her weight is down from 129-114 kg. Echocardiogram Showed atrial fibrillation. Normal LV. Diminished ejection fraction of 40-45%. Impressions and plans patient with underlying acute on chronic systolic congestive heart failure. Along with acute on chronic kidney disease and associated anemia of kidney disease. Other etiologies are pending lab reports. Left lower lobe pneumonia on chest x-ray. Comorbidities as stated above. Continue with her Lasix for now. Diuresis. We will change her long-acting insulin to the morning tomorrow. Continue with Accu-Cheks and coverage. Continue to hold Coumadin pending INR. Continue to monitor electrolytes and renal function. Monitor outputs and weights. Await further cardiology recommendations. Continue antibiotics for now.
[2018-11-27] MEDS: FAMOTIDINE 20 MG TAB PO SCH (07:57)
[2018-11-27] MEDS: ASPIRIN 81 MG PO SCH (07:57)
[2018-11-27] MEDS: CITALOPRAM HYDROBROMIDE 10 MG TAB PO SCH (07:57)
[2018-11-27] MEDS: METOPROLOL TARTRATE 50 MG TAB PO SCH ×3 (07:58→20:36)
[2018-11-27] MEDS: POTASSIUM CHLORIDE ER 20 MEQ TAB.ER PO SCH ×2 (07:58→20:36)
[2018-11-27] MEDS: LISINOPRIL 20 MG TAB PO SCH (07:58)
[2018-11-27] MEDS: FUROSEMIDE 10 MG/ML 4 ML VIAL IV SCH ×2 (07:58→20:38)
[2018-11-27] MEDS: PANTOPRAZOLE 40 MG/10 ML VIAL IV SCH (07:58)
[2018-11-27 08:16] LABS: Calcium 8.9 mg/dL (8.4-10.2); Magnesium 1.8 mg/dL (1.6-2.3); Potassium 3.8 mmol/L (3.5-5.1)
[2018-11-27 10:01] LABS: Glucose,Whole Blood 69 mg/dL (75-99)
[2018-11-27 10:22] LABS: Glucose,Whole Blood 80 mg/dL (75-99)
[2018-11-27 11:50] LABS: Glucose,Whole Blood 87 mg/dL (75-99)
[2018-11-27 12:47] LABS: Hemoglobin A1C 8.3 % (4.0-6.0)
--- NOTE | 2018-11-27 15:16 | P.PN ---
Subjective Progress Note Date: 11/27/18 This is a pleasant 68-year-old female with known history of coronary artery disease and prior bypass surgery, history of diabetes, hypertension, hyperlipidemia, paroxysmal atrial fibrillation for which she takes Coumadin, presents to the hospital with symptoms of progressively worsening shortness of breath, PND and orthopnea, bilateral lower extremity edema, as well as symptoms of diarrhea and vomiting. According to the patient the flu has recently gone through her house, she had been dealing with an upper respiratory infection as well. She states that for the past few days she's been progressively more short of breath, and has been very weak. For these reasons she came to the emergency room for further evaluation and treatment. X-ray on admission revealed infiltrate in the left lower lobe consistent with pneumonia, no heart failure, mild cardiomegaly. EKG on presentation here showed a sinus tachycardia with nonspecific ST-T wave changes. I pressure on arrival here 190/ 85, heart rate 1:30, 99% on room air. Blood pressure this morning 139/68 with a heart rate in the 130s. White blood cell count 7.9, hemoglobin 8.9, platelet count 309. INR on admission 5.4, d-dimer 0.2, sodium 141, potassium 3.9, BUN 25 and creatinine 1.8. NEC and level I.5, troponin 0.037, BNP level 2800. At the time of my examination this morning, patient is lying flat in bed, does state that her breathing is ready somewhat improved. She continues to have bilateral edema. According to the patient, she states that she did eat a significant amount of salt over the past couple of days prior to admission. 11/27/2018 Patient seen and examined this morning, he states that she's feeling better overall, breathing is improving. Had some low blood sugars earlier this morning. She is diuresing well on IV Lasix. White blood cell count 9.5, hemoglobin 9.5, platelet count 320. INR 2.6. Sodium 143, potassium 3.8, BUN 29 and creatinine 1.8. Magnesium 1.8. We will repeat a chest x-ray tomorrow. Objective - Vital Signs Vital signs: Vital Signs Temp 98.1 F 11/27/18 11:11 Pulse 100 11/27/18 11:27 Resp 14 11/27/18 11:11 BP 112/68 11/27/18 11:11 Pulse Ox 97 11/27/18 11:25 Intake & Output 11/26/18 11/27/18 11/27/18 18:59 06:59 18:59 Intake Total 600 360 Output Total 2700 1000 Balance -2100 -640 Weight 129.27 kg 114.9 kg Intake: Oral 600 360 Output: Urine 2700 1000 Other: # Voids 1 3 - Exam PHYSICAL EXAMINATION: GENERAL: 68-year-old female in no acute distress at the time of my examination HEENT: Head is atraumatic, normocephalic. Pupils equal, round. Sclera anicteric. Conjunctiva are clear. Mucous membranes of the mouth are moist. Neck is supple. There is no elevated jugular venous pressure. No carotid bruit is heard. HEART EXAMINATION: Heart S1, S2 normal. No murmur or gallop heard. CHEST EXAMINATION: Lungs are clear with improvement in air entry to bilateral bases. ABDOMEN: Soft, obese, nontender. Bowel sounds are heard. No organomegaly noted. EXTREMITIES: 1+ peripheral pulses with 1+ evidence of peripheral edema and no calf tenderness noted. Small ulcerations bilaterally in the lower extremities noted NEUROLOGIC patient is awake, alert and oriented 3 . - Labs CBC & Chem 7: 11/27/18 07:09 11/27/18 07:09 Labs: Abnormal Lab Results - Last 24 Hours (Table) 11/26/18 11/26/18 11/26/18 Range/Units 03:48 03:48 15:09 RBC (3.80-5.40) m/uL Hgb (11.4-16.0) gm/dL Hct (34.0-46.0) % RDW (11.5-15.5) % PT (9.0-12.0) sec INR (<1.2) BUN (7-17) mg/dL Creatinine (0.52-1.04) mg/dL Glucose (74-99) mg/dL POC Glucose (mg/dL) (75-99) mg/dL Hemoglobin A1c (4.0-6.0) % Iron 22 L (50-170) ug/dL Iron Saturation 5.23 L (12.00-45.00) Total Creatine Kinase 199 H (30-135) U/L Troponin I 0.094 H* (0.000-0.034) ng/mL Total Protein (PEP) 6.0 L (6.2-8.2) g/dL 11/26/18 11/26/18 11/27/18 Range/Units 16:30 20:49 06:41 RBC (3.80-5.40) m/uL Hgb (11.4-16.0) gm/dL Hct (34.0-46.0) % RDW (11.5-15.5) % PT (9.0-12.0) sec INR (<1.2) BUN (7-17) mg/dL Creatinine (0.52-1.04) mg/dL Glucose (74-99) mg/dL POC Glucose (mg/dL) 112 H 155 H 57 L (75-99) mg/dL Hemoglobin A1c (4.0-6.0) % Iron (50-170) ug/dL Iron Saturation (12.00-45.00) Total Creatine Kinase (30-135) U/L Troponin I (0.000-0.034) ng/mL Total Protein (PEP) (6.2-8.2) g/dL 11/27/18 11/27/18 11/27/18 Range/Units 06:55 06:59 07:09 RBC (3.80-5.40) m/uL Hgb (11.4-16.0) gm/dL Hct (34.0-46.0) % RDW (11.5-15.5) % PT (9.0-12.0) sec INR (<1.2) BUN (7-17) mg/dL Creatinine (0.52-1.04) mg/dL Glucose (74-99) mg/dL POC Glucose (mg/dL) 45 L 46 L (75-99) mg/dL Hemoglobin A1c 8.3 H (4.0-6.0) % Iron (50-170) ug/dL Iron Saturation (12.00-45.00) Total Creatine Kinase (30-135) U/L Troponin I (0.000-0.034) ng/mL Total Protein (PEP) (6.2-8.2) g/dL 11/27/18 11/27/18 11/27/18 Range/Units 07:09 07:09 07:09 RBC 3.53 L (3.80-5.40) m/uL Hgb 9.5 L (11.4-16.0) gm/dL Hct 30.4 L (34.0-46.0) % RDW 15.7 H (11.5-15.5) % PT 25.3 H (9.0-12.0) sec INR 2.6 H (<1.2) BUN 29 H (7-17) mg/dL Creatinine 1.80 H (0.52-1.04) mg/dL Glucose 69 L (74-99) mg/dL POC Glucose (mg/dL) (75-99) mg/dL Hemoglobin A1c (4.0-6.0) % Iron (50-170) ug/dL Iron Saturation (12.00-45.00) Total Creatine Kinase (30-135) U/L Troponin I (0.000-0.034) ng/mL Total Protein (PEP) (6.2-8.2) g/dL 11/27/18 Range/Units 09:57 RBC (3.80-5.40) m/uL Hgb (11.4-16.0) gm/dL Hct (34.0-46.0) % RDW (11.5-15.5) % PT (9.0-12.0) sec INR (<1.2) BUN (7-17) mg/dL Creatinine (0.52-1.04) mg/dL Glucose (74-99) mg/dL POC Glucose (mg/dL) 69 L (75-99) mg/dL Hemoglobin A1c (4.0-6.0) % Iron (50-170) ug/dL Iron Saturation (12.00-45.00) Total Creatine Kinase (30-135) U/L Troponin I (0.000-0.034) ng/mL Total Protein (PEP) (6.2-8.2) g/dL Microbiology - Last 24 Hours (Table) 11/26/18 03:39 Blood Culture - Preliminary Blood No Growth after 24 hours 11/26/18 03:39 Urine Culture - Preliminary Urine,Clean Catch Assessment and Plan Plan: Assessment and plan #1 congestive heart failure, LV function unknown, BNP level 2800. #2 recent upper respiratory infection with possible pneumonia #3 paroxysmal atrial fibrillation, on Coumadin for anticoagulation, INR elevated at 5.4 #4 renal insufficiency #5 elevated plasma lactic acid level #6 hypomagnesemia #7 abnormal troponin, could be secondary to supply and demand mismatch, patient denies having any chest discomfort. #8 known history of coronary artery disease with prior bypass surgery #9 accelerated hypertension #10 diabetes #11 hyperlipidemia Plan Echocardiogram with Doppler study was performed which revealed an ejection fraction of 40-45%, moderate pulmonary hypertension. Creatinine unchanged today at 1.8. I'm cardiology's perspective, we would recommend to continue current dose of IV Lasix for 24 hours. Repeat chest x-ray in the morning. DNP note has been reviewed, I agree with a documented findings and plan of care. Patient was seen and examined.
[2018-11-27 16:44] LABS: Glucose,Whole Blood 136 mg/dL (75-99)
[2018-11-27] MEDS: ALPRAZolam 0.5 MG TAB PO PRN (16:50)
[2018-11-27] MEDS: HYDROcodone/APAP 5-325MG 1 EACH TAB PO PRN (20:36)
[2018-11-27] MEDS: ATORVASTATIN 40 MG TAB PO SCH (20:38)
[2018-11-27 21:19] LABS: Glucose,Whole Blood 177 mg/dL (75-99)
[2018-11-27] MEDS: INSULIN DETEMIR 100 UNIT/ML 10 ML VIAL SQ SCH (22:05)
[2018-11-28 06:33] LABS: Glucose,Whole Blood 190 mg/dL (75-99)
[2018-11-28 06:40] LABS: Basophils # (A) 0.1 k/uL (0-0.2); Basophils % (A) 1 %; Eosinophils # (A) 0.4 k/uL (0-0.7); Eosinophils % (A) 5 %; HGB 9.8 gm/dL (11.4-16.0); Hypochromasia Marked; Lymphocytes # (A) 3.2 k/uL (1.0-4.8); Lymphocytes % (A) 36 %; MCH 26.5 pg (25.0-35.0); MCHC 30.7 g/dL (31.0-37.0); MCV 86.3 fL (80.0-100.0); Mean Platelet Volume 7.7; Monocytes # (A) 0.4 k/uL (0-1.0); Monocytes % (A) 5 %; Neutrophils # (A) 4.6 k/uL (1.3-7.7); Neutrophils % (A) 52 %; Platelet Count 349 k/uL (150-450); Poikilocytosis Slight; RBC 3.71 m/uL (3.80-5.40); RDW 15.8 % (11.5-15.5); WBC 8.9 k/uL (3.8-10.6)
[2018-11-28] MEDS: INSULIN ASPART 100 UNIT/ML 1 ML 10 ML VIAL SQ SCH ×4 (06:43→21:22)
[2018-11-28 06:45] LABS: INR 1.3 (<1.2); Prothrombin Time 13.7 sec (9.0-12.0)
[2018-11-28 06:54] LABS: Calcium 9.2 mg/dL (8.4-10.2); Potassium 4.1 mmol/L (3.5-5.1)
[2018-11-28] MEDS: FUROSEMIDE 10 MG/ML 4 ML VIAL IV SCH (08:06)
[2018-11-28] MEDS: PANTOPRAZOLE 40 MG/10 ML VIAL IV SCH (08:06)
[2018-11-28] MEDS: LISINOPRIL 20 MG TAB PO SCH (08:06)
[2018-11-28] MEDS: METOPROLOL TARTRATE 50 MG TAB PO SCH ×3 (08:06→19:56)
[2018-11-28] MEDS: POTASSIUM CHLORIDE ER 20 MEQ TAB.ER PO SCH ×2 (08:06→19:56)
[2018-11-28] MEDS: CITALOPRAM HYDROBROMIDE 10 MG TAB PO SCH (08:06)
[2018-11-28] MEDS: ASPIRIN 81 MG PO SCH (08:06)
[2018-11-28] MEDS: FERROUS SULFATE 325 MG TAB PO SCH (08:07)
--- NOTE | 2018-11-28 08:11 | P.PN ---
Progress Note - Text The patient is a 60-year-old female who presented to 2 days previous with increasing shortness of breath and fatigue. This was also associated with some chest pressure. Patient is post coronary artery bypass in 2013. Also diabetes , hypertension, obesity, hyperlipidemia, chronic kidney disease stage III, paroxysmal atrial fib for which she is on Coumadin. She is also on chronic pain medicine for diffuse osteoarthritis. Patient has been found to be in acute on chronic systolic congestive heart failure with a ejection fraction of 40-45%. She appears to be responding to IV Lasix and diuresis. She states she feels better this morning is sitting up eating breakfast. Patient denies any nausea or vomiting. No diarrhea now. Still short of breath with exertion. Vital signs show temperature 97.8 with a pulse of 89 and respirations 16. Blood pressure 131/60 and she is 97% saturated on room air. Lungs are generally clear. Heart rate is controlled. Extremities reveal some trace pedal edema. No focal neurological deficits. White count is 8.9 with a hemoglobin 9.8 and a platelet count of 349. INR this morning is 1.3. BUN of 34 with creatinine 1.91 given her GFR of 27. Stage IV. Blood sugar was 195. Impressions and plans Overall improving acute on chronic congestive systolic heart failure. Clinically improving symptomatically. Stage IV chronic kidney disease associated with anemia. Iron was found to be low and is being replaced at this time. Patient's Coumadin was held as she was supratherapeutic at this time Coumadin stopped 1.3 and we will resume Coumadin 5 mg today. Follow INRs. Levemir was held because of low blood sugars and this will be resumed as she takes that at 10:00 in the morning usually. Continue with cardiology recommendations. Consider possible discharge over next 24-48 hours pending further clinical improvement as discussed with patient at bedside today.
[2018-11-28] MEDS: ALPRAZolam 0.5 MG TAB PO PRN ×2 (10:19→19:56)
[2018-11-28] MEDS: INSULIN DETEMIR 100 UNIT/ML 10 ML VIAL SQ SCH (10:19)
[2018-11-28 11:16] LABS: Glucose,Whole Blood 202 mg/dL (75-99)
[2018-11-28 11:19] LABS: Albumin 3.31 g/dL (3.80-4.90); Gamma Globulin 0.62 g/dL (0.70-1.50)
--- NOTE | 2018-11-28 12:46 | XR ---
EXAMINATION TYPE: XR chest 2V DATE OF EXAM: 11/28/2018 COMPARISON: 11/26/2018 HISTORY: 68 year-old female follow-up CHF TECHNIQUE: PA and lateral views FINDINGS: Median sternotomy wires are present. Heart mildly enlarged. Some patchy density along the left heart margin shows some improvement. No new consolidation. Overall vascularity appears relatively normal. IMPRESSION: Mild cardiomegaly. No pulmonary edema seen. Improving aeration along the lingula.
--- NOTE | 2018-11-28 14:04 | P.PN ---
Subjective Progress Note Date: 11/28/18 This is a pleasant 68-year-old female with known history of coronary artery disease and prior bypass surgery, history of diabetes, hypertension, hyperlipidemia, paroxysmal atrial fibrillation for which she takes Coumadin, presents to the hospital with symptoms of progressively worsening shortness of breath, PND and orthopnea, bilateral lower extremity edema, as well as symptoms of diarrhea and vomiting. According to the patient the flu has recently gone through her house, she had been dealing with an upper respiratory infection as well. She states that for the past few days she's been progressively more short of breath, and has been very weak. For these reasons she came to the emergency room for further evaluation and treatment. X-ray on admission revealed infiltrate in the left lower lobe consistent with pneumonia, no heart failure, mild cardiomegaly. EKG on presentation here showed a sinus tachycardia with nonspecific ST-T wave changes. I pressure on arrival here 190/ 85, heart rate 1:30, 99% on room air. Blood pressure this morning 139/68 with a heart rate in the 130s. White blood cell count 7.9, hemoglobin 8.9, platelet count 309. INR on admission 5.4, d-dimer 0.2, sodium 141, potassium 3.9, BUN 25 and creatinine 1.8. NEC and level I.5, troponin 0.037, BNP level 2800. At the time of my examination this morning, patient is lying flat in bed, does state that her breathing is ready somewhat improved. She continues to have bilateral edema. According to the patient, she states that she did eat a significant amount of salt over the past couple of days prior to admission. 11/27/2018 Patient seen and examined this morning, he states that she's feeling better overall, breathing is improving. Had some low blood sugars earlier this morning. She is diuresing well on IV Lasix. White blood cell count 9.5, hemoglobin 9.5, platelet count 320. INR 2.6. Sodium 143, potassium 3.8, BUN 29 and creatinine 1.8. Magnesium 1.8. We will repeat a chest x-ray tomorrow. 11/28/2018 Patient seen and examined this morning, breathing is stable. Blood sugars were running a little low this morning. At the time of my examination she is sitting up eating lunch, feeling well. Blood pressure 98/60, heart rate in the 60s, 97% on room air. Sodium 139, potassium 4.9, BUN 23, creatinine 1.0. Objective - Vital Signs Vital signs: Vital Signs Temp 98.1 F 11/28/18 11:49 Pulse 76 11/28/18 12:26 Resp 14 11/28/18 12:26 BP 110/70 11/28/18 11:49 Pulse Ox 94 L 11/28/18 11:49 Intake & Output 11/27/18 11/28/18 11/28/18 18:59 06:59 18:59 Intake Total 720 50 480 Output Total 2000 300 Balance -1280 50 180 Weight 114.5 kg Intake: Intake, IV Titration 50 Amount cefTRIAXone 1,000 mg In 50 Sodium Chloride 0.9% 50 ml @ 100 mls/hr IVPB HS KILEY Rx#:[id number] Oral 720 480 Output: Urine 1999 300 Other: Voiding Method Toilet # Voids 1 1 # Bowel Movements 1 - Exam PHYSICAL EXAMINATION: GENERAL: 68-year-old female in no acute distress at the time of my examination HEENT: Head is atraumatic, normocephalic. Pupils equal, round. Sclera anicteric. Conjunctiva are clear. Mucous membranes of the mouth are moist. Neck is supple. There is no elevated jugular venous pressure. No carotid bruit is heard. HEART EXAMINATION: Heart S1, S2 normal. No murmur or gallop heard. CHEST EXAMINATION: Lungs are clear with improvement in air entry to bilateral bases. ABDOMEN: Soft, obese, nontender. Bowel sounds are heard. No organomegaly noted. EXTREMITIES: 1+ peripheral pulses with trace evidence of peripheral edema and no calf tenderness noted. Small ulcerations bilaterally in the lower extremities noted NEUROLOGIC patient is awake, alert and oriented 3 . - Labs CBC & Chem 7: 11/28/18 05:51 11/28/18 05:51 Labs: Abnormal Lab Results - Last 24 Hours (Table) 11/26/18 11/27/18 11/27/18 Range/Units 03:48 16:41 21:17 RBC (3.80-5.40) m/uL Hgb (11.4-16.0) gm/dL Hct (34.0-46.0) % MCHC (31.0-37.0) g/dL RDW (11.5-15.5) % PT (9.0-12.0) sec INR (<1.2) Carbon Dioxide (22-30) mmol/L BUN (7-17) mg/dL Creatinine (0.52-1.04) mg/dL Glucose (74-99) mg/dL POC Glucose (mg/dL) 136 H 177 H (75-99) mg/dL Albumin (PEP) 3.31 L (3.80-4.90) g/dL Gamma Globulins 0.62 L (0.70-1.50) g/dL 11/28/18 11/28/18 11/28/18 Range/Units 05:51 05:51 05:51 RBC 3.71 L (3.80-5.40) m/uL Hgb 9.8 L (11.4-16.0) gm/dL Hct 32.0 L (34.0-46.0) % MCHC 30.7 L (31.0-37.0) g/dL RDW 15.8 H (11.5-15.5) % PT 13.7 H (9.0-12.0) sec INR 1.3 H (<1.2) Carbon Dioxide 33 H (22-30) mmol/L BUN 34 H (7-17) mg/dL Creatinine 1.91 H (0.52-1.04) mg/dL Glucose 195 H (74-99) mg/dL POC Glucose (mg/dL) (75-99) mg/dL Albumin (PEP) (3.80-4.90) g/dL Gamma Globulins (0.70-1.50) g/dL 11/28/18 11/28/18 Range/Units 06:32 11:15 RBC (3.80-5.40) m/uL Hgb (11.4-16.0) gm/dL Hct (34.0-46.0) % MCHC (31.0-37.0) g/dL RDW (11.5-15.5) % PT (9.0-12.0) sec INR (<1.2) Carbon Dioxide (22-30) mmol/L BUN (7-17) mg/dL Creatinine (0.52-1.04) mg/dL Glucose (74-99) mg/dL POC Glucose (mg/dL) 190 H 202 H (75-99) mg/dL Albumin (PEP) (3.80-4.90) g/dL Gamma Globulins (0.70-1.50) g/dL Microbiology - Last 24 Hours (Table) 11/26/18 03:39 Blood Culture - Preliminary Blood No Growth after 48 hours Assessment and Plan Plan: Assessment and plan #1 congestive heart failure, LV function unknown, BNP level 2800. #2 recent upper respiratory infection with possible pneumonia #3 paroxysmal atrial fibrillation, on Coumadin for anticoagulation, INR elevated at 5.4 #4 renal insufficiency #5 elevated plasma lactic acid level #6 hypomagnesemia #7 abnormal troponin, could be secondary to supply and demand mismatch, patient denies having any chest discomfort. #8 known history of coronary artery disease with prior bypass surgery #9 accelerated hypertension #10 diabetes #11 hyperlipidemia Plan Echocardiogram with Doppler study was performed which revealed an ejection fraction of 40-45%, moderate pulmonary hypertension. Creatinine unchanged today at 1.9. From cardiology's perspective, we'll discontinue the IV Lasix and start the patient on oral diuretics. Repeat chest x-ray showed mild cardiomegaly, no pulmonary edema. DNP note has been reviewed, I agree with a documented findings and plan of care. Patient was seen and examined.
[2018-11-28] MEDS: FUROSEMIDE 40 MG TAB PO SCH (15:25)
[2018-11-28 16:16] LABS: Glucose,Whole Blood 127 mg/dL (75-99)
[2018-11-28] MEDS ORDERED: WARFARIN 5 MG TAB PO ONE (18:00)
[2018-11-28] MEDS: HYDROcodone/APAP 5-325MG 1 EACH TAB PO PRN (19:55)
[2018-11-28] MEDS: ATORVASTATIN 40 MG TAB PO SCH (19:56)
[2018-11-28 21:08] LABS: Glucose,Whole Blood 167 mg/dL (75-99)
[2018-11-29] MEDS: HYDROcodone/APAP 5-325MG 1 EACH TAB PO PRN ×2 (04:43→20:17)
[2018-11-29 06:18] LABS: Glucose,Whole Blood 198 mg/dL (75-99)
[2018-11-29] MEDS: INSULIN ASPART 100 UNIT/ML 1 ML 10 ML VIAL SQ SCH ×4 (06:32→22:01)
[2018-11-29] MEDS: PANTOPRAZOLE 40 MG TABLET PO SCH (06:32)
[2018-11-29 07:41] LABS: INR 1.1 (<1.2); Prothrombin Time 11.7 sec (9.0-12.0)
--- NOTE | 2018-11-29 08:21 | P.PN ---
Progress Note - Text Patient is a 68-year-old female who 3 days previously presented to the emergency room with increasing shortness of breath and fatigue. This was associated with some intermittent chest pressure. She does have underlying coronary artery disease with previous bypass in 2013. Also multiple risk factors that are been previously listed. Patient found to have left lower lobe pneumonia. Also acute on chronic systolic congestive heart failure. Ejection fraction of 40-45%. Patient medically appears to be responding to Lasix. Edema has improved. She feels better with her endurance but still short of breath when she returns from the bathroom. No chest pain. Last vital signs show a temperature of 98 with a pulse of 98 respirations 17. Blood pressure 127/62 and she is 95% saturated on room air. Lungs are generally clear although diminished at bases. Heart tones were regular. Abdomen nontender. Some mild pedal edema but overall improved. She is alert and oriented without focal cranial nerve or peripheral deficits. INR this morning is 1.1. Blood sugar 198 Impressions and plans We will continue with Coumadin today. 7.5 mg. Repeat INR tomorrow. Continue her cardiac medications and Lasix. Discussed with patient and nursing staff. Anticipate possible discharge tomorrow if clinically improves further. Also if any further recommendations from cardiology.
[2018-11-29] MEDS: FUROSEMIDE 40 MG TAB PO SCH ×2 (08:49→18:21)
[2018-11-29] MEDS: LISINOPRIL 20 MG TAB PO SCH (08:49)
[2018-11-29] MEDS: CITALOPRAM HYDROBROMIDE 10 MG TAB PO SCH (08:49)
[2018-11-29] MEDS: POTASSIUM CHLORIDE ER 20 MEQ TAB.ER PO SCH ×2 (08:49→20:17)
[2018-11-29] MEDS: METOPROLOL TARTRATE 50 MG TAB PO SCH ×3 (08:49→20:18)
[2018-11-29] MEDS: ASPIRIN 81 MG PO SCH (08:49)
[2018-11-29] MEDS: INSULIN DETEMIR 100 UNIT/ML 10 ML VIAL SQ SCH (10:26)
--- NOTE | 2018-11-29 11:07 | P.PN ---
Subjective Progress Note Date: 11/29/18 This is a pleasant 68-year-old female with known history of coronary artery disease and prior bypass surgery, history of diabetes, hypertension, hyperlipidemia, paroxysmal atrial fibrillation for which she takes Coumadin, presents to the hospital with symptoms of progressively worsening shortness of breath, PND and orthopnea, bilateral lower extremity edema, as well as symptoms of diarrhea and vomiting. According to the patient the flu has recently gone through her house, she had been dealing with an upper respiratory infection as well. She states that for the past few days she's been progressively more short of breath, and has been very weak. For these reasons she came to the emergency room for further evaluation and treatment. X-ray on admission revealed infiltrate in the left lower lobe consistent with pneumonia, no heart failure, mild cardiomegaly. EKG on presentation here showed a sinus tachycardia with nonspecific ST-T wave changes. I pressure on arrival here 190/ 85, heart rate 1:30, 99% on room air. Blood pressure this morning 139/68 with a heart rate in the 130s. White blood cell count 7.9, hemoglobin 8.9, platelet count 309. INR on admission 5.4, d-dimer 0.2, sodium 141, potassium 3.9, BUN 25 and creatinine 1.8. NEC and level I.5, troponin 0.037, BNP level 2800. At the time of my examination this morning, patient is lying flat in bed, does state that her breathing is ready somewhat improved. She continues to have bilateral edema. According to the patient, she states that she did eat a significant amount of salt over the past couple of days prior to admission. 11/27/2018 Patient seen and examined this morning, he states that she's feeling better overall, breathing is improving. Had some low blood sugars earlier this morning. She is diuresing well on IV Lasix. White blood cell count 9.5, hemoglobin 9.5, platelet count 320. INR 2.6. Sodium 143, potassium 3.8, BUN 29 and creatinine 1.8. Magnesium 1.8. We will repeat a chest x-ray tomorrow. 11/28/2018 Patient seen and examined this morning, breathing is stable. Blood sugars were running a little low this morning. At the time of my examination she is sitting up eating lunch, feeling well. Blood pressure 98/60, heart rate in the 60s, 97% on room air. Sodium 139, potassium 4.9, BUN 23, creatinine 1.0. 11/29/2018 Patient seen and examined this morning, breathing is stable. She does state she gets some mild shortness of breath when she is up walking a significant amount. She was also complaining this morning of some mild dizziness when she bends all the way forward. Blood sugars are remaining stable. The plan is to keep her in the hospital for another 24 hours, we'll check orthostatics and continue with the rest of her medications. Objective - Vital Signs Vital signs: Vital Signs Temp 98.0 F 11/29/18 04:00 Pulse 97 11/29/18 08:00 Resp 19 11/29/18 08:00 BP 116/52 11/29/18 08:00 Pulse Ox 95 11/29/18 08:00 Intake & Output 11/28/18 11/29/18 11/29/18 18:59 06:59 18:59 Intake Total 720 220 480 Output Total 900 400 Balance -180 -180 480 Weight 111.2 kg Intake: Intake, IV Titration 100 Amount cefTRIAXone 1,000 mg In 100 Sodium Chloride 0.9% 50 ml @ 100 mls/hr IVPB HS KI[facility] Rx#:[id number] Oral 720 120 480 Output: Urine 900 400 Other: Voiding Method Toilet # Voids 1 # Bowel Movements 1 - Exam PHYSICAL EXAMINATION: GENERAL: 68-year-old female in no acute distress at the time of my examination HEENT: Head is atraumatic, normocephalic. Pupils equal, round. Sclera anicteric. Conjunctiva are clear. Mucous membranes of the mouth are moist. Neck is supple. There is no elevated jugular venous pressure. No carotid bruit is heard. HEART EXAMINATION: Heart S1, S2 normal. No murmur or gallop heard. CHEST EXAMINATION: Lungs are clear with improvement in air entry to bilateral bases. ABDOMEN: Soft, obese, nontender. Bowel sounds are heard. No organomegaly noted. EXTREMITIES: 1+ peripheral pulses with trace evidence of peripheral edema and no calf tenderness noted. Small ulcerations bilaterally in the lower extremities noted NEUROLOGIC patient is awake, alert and oriented 3 . - Labs CBC & Chem 7: 11/28/18 05:51 11/28/18 05:51 Labs: Abnormal Lab Results - Last 24 Hours (Table) 11/26/18 11/28/18 11/28/18 Range/Units 03:48 11:15 16:13 POC Glucose (mg/dL) 202 H 127 H (75-99) mg/dL Albumin (PEP) 3.31 L (3.80-4.90) g/dL Gamma Globulins 0.62 L (0.70-1.50) g/dL 11/28/18 11/29/18 Range/Units 21:05 06:17 POC Glucose (mg/dL) 167 H 198 H (75-99) mg/dL Albumin (PEP) (3.80-4.90) g/dL Gamma Globulins (0.70-1.50) g/dL Microbiology - Last 24 Hours (Table) 11/26/18 03:39 Blood Culture - Preliminary Blood No Growth after 72 hours 11/26/18 03:39 Urine Culture - Final Urine,Clean Catch Assessment and Plan Plan: Assessment and plan #1 congestive heart failure, LV function unknown, BNP level 2800. #2 recent upper respiratory infection with possible pneumonia #3 paroxysmal atrial fibrillation, on Coumadin for anticoagulation, INR elevated at 5.4 #4 renal insufficiency #5 elevated plasma lactic acid level #6 hypomagnesemia #7 abnormal troponin, could be secondary to supply and demand mismatch, patient denies having any chest discomfort. #8 known history of coronary artery disease with prior bypass surgery #9 accelerated hypertension #10 diabetes #11 hyperlipidemia Plan Echocardiogram with Doppler study was performed which revealed an ejection fraction of 40-45%, moderate pulmonary hypertension. We will check some orthostatics on the patient. From our perspective she stable for discharge once cleared by pulmonary. DNP note has been reviewed, I agree with a documented findings and plan of care. Patient was seen and examined.
[2018-11-29 11:33] LABS: Glucose,Whole Blood 186 mg/dL (75-99)
[2018-11-29] MEDS: FERROUS SULFATE 325 MG TAB PO SCH (12:10)
[2018-11-29 16:35] LABS: Glucose,Whole Blood 205 mg/dL (75-99)
[2018-11-29] MEDS ORDERED: WARFARIN 7.5 MG TAB PO ONE (18:00)
[2018-11-29] MEDS: ALPRAZolam 0.5 MG TAB PO PRN (20:17)
[2018-11-29] MEDS: ATORVASTATIN 40 MG TAB PO SCH (20:17)
[2018-11-29 20:48] LABS: Glucose,Whole Blood 191 mg/dL (75-99)
[2018-11-30 06:19] LABS: Glucose,Whole Blood 137 mg/dL (75-99)
[2018-11-30] MEDS: INSULIN ASPART 100 UNIT/ML 1 ML 10 ML VIAL SQ SCH ×4 (06:24→21:08)
[2018-11-30] MEDS: PANTOPRAZOLE 40 MG TABLET PO SCH (06:24)
[2018-11-30 06:49] LABS: INR 1.1 (<1.2)
--- NOTE | 2018-11-30 06:49 | DS ---
DISCHARGE SUMMARY Mrs. Bocanegra is a 68-year-old female a patient who presented to the emergency room with increasing shortness of breath, fatigue with minimal exertion, some cough and some chest discomfort. This followed a recent flu type illness that affected her and family members. She also had some nausea, vomiting, and diarrhea. The patient also is on Coumadin for atrial fibrillation and was found to be supratherapeutic above 5. The labs showed a white count of 7.9, hemoglobin was 8.9 at presentation, and platelet count of 309. INR was 5.4. Sodium 141, potassium 3.9, BUN of 25 with a creatinine 1.8 and a GFR of 29, stage IV on presentation chronic kidney disease. Troponin was 0.037. Albumin 3.6. Urine did have 35 white cells, leukocyte esterase was negative, and further cultures was negative. EKG showed a supraventricular tachycardia up to 138. Chest x-ray showed left lower lobe infiltrate and mild cardiomegaly. The patient was admitted and seen in consultation by Cardiology. Please refer to their notes. A subsequent chest x-ray showed improving aeration. Cardiology placed her on Lasix and an echocardiogram revealed atrial fibrillation and an ejection fraction of 40% to 45%. The LV size was normal, but hypertrophy was present. The patient did appear to diurese well and clinically improved with the diuretics and antibiotics with improvement in her chest x-ray. Her Coumadin was held then decreased down to subtherapeutic and Coumadin was reinstated. She was given IV ceftriaxone. Repeat laboratory values revealed improvement in her hemoglobin up to 9.8, white count of 8.9, platelets are 349. Blood sugars remained in the upper of 100 to 200 range. She was found on iron studies 10% saturation of 5. Protein electrophoresis did not reveal any monoclonal spikes and B12 also was normal. With continued improvement clinically, plans are to discharge home tomorrow. She will continue with Lasix 40 mg daily and her metoprolol will be increased to 50 mg twice a day. She does have [place] at home for chronic pain at 5/325 one twice a day, potassium replacement 10 mEq daily, Actos at 15 mg daily will be held in light of her congestive heart failure, Paxil can be resumed at 20 mg daily, Imodium 2 mg p.r.n. for diarrhea, hydrochlorothiazide 25/12.5 mg daily, Pepcid 20 mg twice a day, enalapril 10 mg twice a day, Colace 100 mg daily for constipation, aspirin 81 mg daily, Elavil 10 mg at bedtime, Xanax 0.5 t.i.d. p.r.n., and Coumadin 5 mg daily and followup of INR. Follow up in office in approximately 1 week. Prescriptions for ferrous sulfate 325 mg one daily, Lopressor 50 mg twice a day and Lasix 40 mg once a day will be sent to her [facility] pharmacy in [facility] through my office EMR. FINAL DISCHARGE DIAGNOSES: 1. Left lower lobe pneumonia. 2. Acute on chronic systolic congestive heart failure with an ejection fraction of 40% to 45%. 3. History of coronary artery disease with previous bypass surgery in 2013. 4. Insulin-dependent type 2 diabetes. 5. Hypertension. 6. Obesity. 7. Hyperlipidemia. 8. Chronic kidney disease stage 3 to 4. 9. Paroxysmal atrial fibrillation on Coumadin. 10.Anxiety. 11.Depression. 12.Chronic pain syndrome secondary to arthritis involving the knees and back for which she is on [place]. Diet as tolerated. Activities as tolerated. Follow up in office in 1 week. Follow up on her INR and CBC. Overall prognosis is fair to good. MMODL / IJN: [id number] / [place]
--- NOTE | 2018-11-30 08:17 | P.PN ---
Progress Note - Text The patient is a 60-year-old female who presented with pneumonia and congestive heart failure. Anticipating discharge to home as she has clinically improved on treatment. Today she sitting at the side of the bed. Eating breakfast. Her shortness of breath and dyspnea has improved. Vital signs show temperature 90.3 with a pulse of 85 and respirations 18. Blood pressure 124/69 inches 95% saturated on 2 L. Lung and heart examination is clear. Abdomen nontender. No unusual edema. No focal neurological changes. Impressions and plans Please refer to discharge summary as patient will be discharged to home today. Patient to return to office next week. Call if any concerns or problems. Patient's new scripts will be sent to her [facility] pharmacy in [place] through my EMR.
[2018-11-30] MEDS: METOPROLOL TARTRATE 50 MG TAB PO SCH ×2 (08:20→20:32)
[2018-11-30] MEDS: POTASSIUM CHLORIDE ER 20 MEQ TAB.ER PO SCH ×2 (08:20→20:32)
[2018-11-30] MEDS: ASPIRIN 81 MG PO SCH (08:20)
[2018-11-30] MEDS: LISINOPRIL 20 MG TAB PO SCH (08:21)
[2018-11-30] MEDS: CITALOPRAM HYDROBROMIDE 10 MG TAB PO SCH (08:21)
[2018-11-30] MEDS: FUROSEMIDE 40 MG TAB PO SCH ×2 (08:21→17:23)
[2018-11-30 09:56] VITALS: RESP 20
[2018-11-30] MEDS: HYDROcodone/APAP 5-325MG 1 EACH TAB PO PRN (10:06)
[2018-11-30] MEDS: ALPRAZolam 0.5 MG TAB PO PRN (10:06)
[2018-11-30] MEDS: INSULIN DETEMIR 100 UNIT/ML 10 ML VIAL SQ SCH (10:07)
--- NOTE | 2018-11-30 10:15 | P.PN ---
Subjective Progress Note Date: 11/30/18 Principal diagnosis: CHF/atrial fibrillation This is a pleasant 68-year-old female patient who we are following with congestive heart failure as well as atrial fibrillation. The echocardiogram revealed impaired LV function with EF between 40-45%. On follow-up with the patient today, she is feeling overall better. She continues to be tachycardic with heart rate around 100 beats per minutes. Denies having any chest pain or chest discomfort. I suggested increase the dose of metoprolol. Continue monitoring the patient for additional 24 hours. Objective - Vital Signs Vital signs: Vital Signs Temp 98.7 F 11/30/18 07:00 Pulse 107 H 11/30/18 07:00 Resp 20 11/30/18 07:00 BP 125/81 11/30/18 07:00 Pulse Ox 94 L 11/30/18 07:00 Intake & Output 11/29/18 11/30/18 11/30/18 18:59 06:59 18:59 Intake Total 1560 120 360 Balance 1560 120 360 Intake: Oral 1560 120 360 Other: Voiding Method Toilet # Voids 2 2 - Constitutional General appearance: Present: no acute distress - Respiratory Respiratory: bilateral: CTA - Cardiovascular Heart sounds: normal: S1, S2 - Labs CBC & Chem 7: 11/28/18 05:51 11/28/18 05:51 Labs: Abnormal Lab Results - Last 24 Hours (Table) 11/29/18 11/29/18 11/29/18 Range/Units 11:32 16:34 20:41 POC Glucose (mg/dL) 186 H 205 H 191 H (75-99) mg/dL 11/30/18 Range/Units 06:15 POC Glucose (mg/dL) 137 H (75-99) mg/dL Microbiology - Last 24 Hours (Table) 11/26/18 03:39 Blood Culture - Preliminary Blood No Growth after 96 hours Assessment and Plan Assessment: Assessment Assessment #1 congestive heart failure exacerbation secondary to diastolic dysfunction #2 paroxysmal atrial fibrillation #3 multiple comorbid conditions Plan #1 increase the dose of metoprolol #2 monitor the patient for additional 24 hours
[2018-11-30] MEDS ORDERED: METOPROLOL TARTRATE 50 MG TAB PO STA (10:19)
[2018-11-30 11:28] LABS: Glucose,Whole Blood 305 mg/dL (75-99)
[2018-11-30] MEDS: FERROUS SULFATE 325 MG TAB PO SCH (11:28)
[2018-11-30 16:12] LABS: Glucose,Whole Blood 227 mg/dL (75-99)
[2018-11-30] MEDS: ATORVASTATIN 40 MG TAB PO SCH (20:32)
[2018-11-30] MEDS ORDERED: WARFARIN 7.5 MG TAB PO ONE (20:45)
[2018-11-30 21:06] LABS: Glucose,Whole Blood 168 mg/dL (75-99)
[2018-12-01] MEDS: HYDROcodone/APAP 5-325MG 1 EACH TAB PO PRN (01:14)
[2018-12-01] MEDS: ALPRAZolam 0.5 MG TAB PO PRN (01:14)
[2018-12-01 07:14] LABS: Glucose,Whole Blood 238 mg/dL (75-99)
[2018-12-01] MEDS: INSULIN ASPART 100 UNIT/ML 1 ML 10 ML VIAL SQ SCH ×4 (08:10→22:57)
[2018-12-01] MEDS: FUROSEMIDE 40 MG TAB PO SCH ×2 (08:11→22:55)
[2018-12-01] MEDS: PANTOPRAZOLE 40 MG TABLET PO SCH (08:11)
[2018-12-01] MEDS: ASPIRIN 81 MG PO SCH (08:11)
[2018-12-01] MEDS: CITALOPRAM HYDROBROMIDE 10 MG TAB PO SCH (08:11)
[2018-12-01] MEDS: LISINOPRIL 20 MG TAB PO SCH (08:12)
[2018-12-01] MEDS: METOPROLOL TARTRATE 50 MG TAB PO SCH ×2 (08:12→22:57)
[2018-12-01] MEDS: POTASSIUM CHLORIDE ER 20 MEQ TAB.ER PO SCH ×2 (08:12→22:58)
[2018-12-01 08:34] LABS: INR 1.4 (<1.2); Prothrombin Time 14.3 sec (9.0-12.0)
[2018-12-01] MEDS: INSULIN DETEMIR 100 UNIT/ML 10 ML VIAL SQ SCH (09:50)
[2018-12-01 11:58] LABS: Glucose,Whole Blood 295 mg/dL (75-99)
[2018-12-01] MEDS ORDERED: WARFARIN 10 MG TAB PO ONE (18:00)
[2018-12-01 18:47] LABS: Glucose,Whole Blood 221 mg/dL (75-99)
--- NOTE | 2018-12-01 19:10 | PN ---
PROGRESS NOTE Mrs. Bocanegra is a 68-year-old female who presented with shortness of breath. Testing revealed systolic and diastolic congestive heart failure along with left lower lobe pneumonia. She has been treated with antibiotics and diuretics and has been seen by Cardiology. She has had some tachyarrhythmias for which she is on beta blockers. Today, she generally is feeling well, but still short of breath with exertion, getting back to the bathroom. Vital signs reveal a temperature 97.2. Pulse is still irregular. She does have atrial fibrillation. Her heart rate is 113, respirations nonlabored, but at 20. Blood pressures vary from 101/64 to 125/76, and she is 93% saturated on room air. Lungs do reveal some diminished breath sounds. Heart tones were slightly irregular and slightly tachycardic. She does not have any unusual edema. Neurologically, she is alert and oriented without focal deficits noted. LABS: Reveal an INR of 1.4 today. Blood sugar is 295. As discussed with patient and daughter at bedside, we will wait for further recommendation from Cardiology. As far as medication adjustments, Coumadin is to be continued and we had an INR to be checked and further recommendations pending clinical response results of above. MMODL / IJN: [id number] /
[2018-12-01 20:56] LABS: Glucose,Whole Blood 246 mg/dL (75-99)
[2018-12-01] MEDS: FERROUS SULFATE 325 MG TAB PO SCH (22:54)
[2018-12-01] MEDS: ATORVASTATIN 40 MG TAB PO SCH (22:56)
[2018-12-02 01:04] LABS: INR 1.7 (<1.2); Prothrombin Time 16.7 sec (9.0-12.0)
[2018-12-02 05:49] LABS: Glucose,Whole Blood 206 mg/dL (75-99)
[2018-12-02 07:25] VITALS: BP 92/71; TEMP 98.8
[2018-12-02] MEDS: INSULIN ASPART 100 UNIT/ML 1 ML 10 ML VIAL SQ SCH ×2 (07:37→12:14)
[2018-12-02] MEDS: PANTOPRAZOLE 40 MG TABLET PO SCH (07:38)
[2018-12-02] MEDS: CITALOPRAM HYDROBROMIDE 10 MG TAB PO SCH (07:38)
[2018-12-02] MEDS: ASPIRIN 81 MG PO SCH (07:38)
[2018-12-02] MEDS: METOPROLOL TARTRATE 50 MG TAB PO SCH (07:39)
[2018-12-02] MEDS: LISINOPRIL 20 MG TAB PO SCH (07:39)
[2018-12-02] MEDS: POTASSIUM CHLORIDE ER 20 MEQ TAB.ER PO SCH (07:39)
[2018-12-02] MEDS: FUROSEMIDE 40 MG TAB PO SCH (07:39)
[2018-12-02] MEDS: ALPRAZolam 0.5 MG TAB PO PRN (07:49)
[2018-12-02 09:12] VITALS: PULSE 117
[2018-12-02] MEDS ORDERED: INSULIN DETEMIR 100 UNIT/ML 10 ML VIAL SQ SCH (10:00)
[2018-12-02 10:06] LABS: INR 1.9 (<1.2); Prothrombin Time 18.6 sec (9.0-12.0)
--- NOTE | 2018-12-02 10:22 | P.PN ---
Progress Note - Text Please refer to previously discharge summary. The patient today is feeling better. Much less short of breath. She still gets slightly tachycardic when walking. But she has lost 2 Kg in weight and is continuing to improve. She denies any chest pain. Vital signs show a temperature 98.8 with a pulse of 117 and irregular. Respirations 20 and blood pressure 106/69 see us 600% saturated on 2 L. Lungs are clear to auscultation Heart rate slightly irregular. No edema. No neurological deficits. Laboratory INR is 1.9 Blood sugar 206 Impressions and plans Discussed with cardiology and nursing staff and patient this morning. Plans are for discharge to home later this afternoon. Changes to previous discharge summary will include: The scripts have been sent to [facility] pharmacy in [place]. Lasix increased to 40 mg twice a day Metoprolol increased to 75 mg 3 times a day Atorvastatin 40 mg daily Coumadin 5 mg daily The patient has been told to adjust her insulin at home pending her blood sugars and if they remain high she can go back up on her long-acting insulin gradually from 46 units up to 60 units. Patient has [place] at home for chronic pain which she takes up to twice a day, 5/ 325 Continue potassium replacement 10 mEq daily Patient is to stop Actos and hydrochlorothiazide She will resume her aspirin 81 mg daily Elavil 10 mg at bedtime Alprazolam 0.5 3 times a day when necessary for anxiety Patient has finished her course of antibiotics in the hospital and will not need further antibiotics. Once again refer to previous discharge summary dictated on November 30. We will see patient in the office later this week. Patient also to follow-up with her real estate lawyer.
[2018-12-02 12:04] LABS: Glucose,Whole Blood 268 mg/dL (75-99)
[2018-12-02] MEDS: FERROUS SULFATE 325 MG TAB PO SCH (12:14)
--- NOTE | 2018-12-02 15:27 | P.PN ---
Subjective Progress Note Date: 12/02/18 Principal diagnosis: CHF/atrial fibrillation This is a pleasant 68-year-old female patient who we are following with congestive heart failure as well as atrial fibrillation. The echocardiogram revealed impaired LV function with EF between 40-45%. On follow-up with the patient today, December 022018 she is feeling overall better. She continues to be tachycardic with heart rate around 100 beats per minutes. Denies having any chest pain or chest discomfort. I suggested increase the dose of metoprolol. From the cardiovascular standpoint of view, the patient can be discharged home. Objective - Vital Signs Vital signs: Vital Signs Temp 98.8 F 12/02/18 05:45 Pulse 117 H 12/02/18 07:42 Resp 20 12/02/18 05:45 BP 92/71 12/02/18 05:45 Pulse Ox 100 12/02/18 07:33 Intake & Output 12/01/18 12/02/18 12/02/18 18:59 06:59 18:59 Intake Total 300 Balance 300 Weight 109.769 kg Intake: Oral 300 Other: Voiding Method Toilet # Voids 1 - Constitutional General appearance: Present: no acute distress - Labs CBC & Chem 7: 11/28/18 05:51 11/28/18 05:51 Labs: Abnormal Lab Results - Last 24 Hours (Table) 12/01/18 12/01/18 12/01/18 Range/Units 17:04 18:43 20:28 PT 16.7 H (9.0-12.0) sec INR 1.7 H (<1.2) POC Glucose (mg/dL) 221 H 246 H (75-99) mg/dL 12/02/18 12/02/18 12/02/18 Range/Units 05:46 09:05 12:02 PT 18.6 H (9.0-12.0) sec INR 1.9 H (<1.2) POC Glucose (mg/dL) 206 H 268 H (75-99) mg/dL Microbiology - Last 24 Hours (Table) 11/26/18 03:39 Blood Culture - Final Blood No Growth after 144 hours Assessment and Plan Assessment: Assessment Assessment #1 congestive heart failure exacerbation secondary to diastolic dysfunction #2 paroxysmal atrial fibrillation #3 multiple comorbid conditions Plan #1 increase the dose of metoprolol #2 discharge home
[2018-12-02] MEDS ORDERED: WARFARIN 10 MG TAB PO ONE (18:00)
== END 2018-12-02 14:15 | disposition home health service (06) | DRG 291 ==
LOC: EC 02:38 → 3SCARD 04:15 → 4MS4W 11-30 21:32
PROVIDERS: ADMIT Internal Medicine; ATTEND Internal Medicine
DX: I13.0 Hypertensive heart and chronic kidney disease with heart failure and stage 1 through stage 4 chronic kidney disease, or unspecified chronic kidney disease (principal); J18.9 Pneumonia, unspecified organism; I50.43 Acute on chronic combined systolic (congestive) and diastolic (congestive) heart failure; N17.9 Acute kidney failure, unspecified; N18.4 Chronic kidney disease, stage 4 (severe); I47.1 Supraventricular tachycardia; N39.0 Urinary tract infection, site not specified; E86.0 Dehydration; E11.22 Type 2 diabetes mellitus with diabetic chronic kidney disease; M46.90 Unspecified inflammatory spondylopathy, site unspecified; M17.0 Bilateral primary osteoarthritis of knee; E66.9 Obesity, unspecified; I48.0 Paroxysmal atrial fibrillation; K21.9 Gastro-esophageal reflux disease without esophagitis; F41.9 Anxiety disorder, unspecified; F32.9 Major depressive disorder, single episode, unspecified; D63.1 Anemia in chronic kidney disease; E78.5 Hyperlipidemia, unspecified; E83.42 Hypomagnesemia; I25.10 Atherosclerotic heart disease of native coronary artery without angina pectoris; G47.30 Sleep apnea, unspecified; M19.90 Unspecified osteoarthritis, unspecified site; M54.30 Sciatica, unspecified side; R77.8 Other specified abnormalities of plasma proteins; R19.7 Diarrhea, unspecified; Z20.828 Contact with and (suspected) exposure to other viral communicable diseases; Z90.49 Acquired absence of other specified parts of digestive tract; Z95.1 Presence of aortocoronary bypass graft; Z90.710 Acquired absence of both cervix and uterus; I25.2 Old myocardial infarction; Z79.01 Long term (current) use of anticoagulants; Z79.4 Long term (current) use of insulin; Z79.82 Long term (current) use of aspirin; Z79.899 Other long term (current) drug therapy; Z83.3 Family history of diabetes mellitus; Z82.49 Family history of ischemic heart disease and other diseases of the circulatory system; Z85.41 Personal history of malignant neoplasm of cervix uteri
CPT/HCPCS: 36415; 71046; 80048; 80053; 81001; 82550; 82553; 82607; 83036; 83540; 83550; 83605; 83690; 83735; 83880; 84165; 84443; 84484; 85025; 85379; 85610; 85730; 87040; 87086; 93005; 93306; 94760; 96361; 96365; 96366; 96367; 96368; 96375; 99285

== ENCOUNTER 2018-12-14 15:25 | Inpatient (IN) | payer MEDICARE ==
[2018-12-14] MEDS ORDERED: DILTIAZEM DRIP BOLUS FROM BAG 1 MG SOLN IV ONE (16:13)
--- NOTE | 2018-12-14 16:14 | ED ---
General Adult HPI - General Chief complaint: Shortness of Breath Stated complaint: POSS CHF Time Seen by Provider: 12/14/18 15:39 Source: patient, RN notes reviewed, old records reviewed Mode of arrival: ambulatory Limitations: no limitations - History of Present Illness Initial comments: 68 female history of A. fib, congestive heart failure presenting for evaluation of generalized weakness, fatigue, and vomiting. Patient was recently admitted to the hospital with a 2 fibrillation, congestive heart failure. She was discharged home, she has had fatigue, dyspnea, concern for CHF since the time of discharge. She was seen by her primary care physician recommended she present to the emergency department for further evaluation. Patient denies significant chest pain. She does report 2-3 episodes of vomiting daily since discharge. No abdominal pain. She has not had weight gain. She has been compliant with her medications. She is currently on Coumadin. - Related Data Home Medications Medication Instructions Recorded Confirmed ALPRAZolam [Xanax] 0.5 mg PO TID PRN 03/06/14 12/14/18 Famotidine [Pepcid] 20 mg PO BID 03/06/14 12/14/18 Amitriptyline HCl [Elavil] 10 mg PO HS 11/26/18 12/14/18 Aspirin [Poinsett Aspirin EC] 81 mg PO DAILY 11/26/18 12/14/18 HYDROcodone/APAP 5-325MG [[place] 1 tab PO BID PRN 11/26/18 12/14/18 5-325] Insulin Glargine,Hum.rec.anlog 70 units SQ DAILY 11/26/18 12/14/18 [Cuca Briones] Loperamide [Imodium] 2 mg PO Q8H 11/26/18 12/14/18 PARoxetine [Paxil] 20 g PO DAILY 11/26/18 12/14/18 Pioglitazone HCl [Actos] 15 mg PO DAILY 11/26/18 12/14/18 Potassium Chloride ER [K-Dur 10] 10 meq PO DAILY 11/26/18 12/14/18 Warfarin [Coumadin] 5 mg PO DAILY 11/26/18 12/14/18 Furosemide [Lasix] 40 mg PO BID 12/14/18 12/14/18 Previous Rx's Medication Instructions Recorded Docusate [Colace] 100 mg PO DAILY #30 cap 03/10/14 Enalapril [Vasotec] 10 mg PO BID #60 tab 03/10/14 Atorvastatin [Lipitor] 40 mg PO HS #30 tablet 11/30/18 Metoprolol Tartrate [Lopressor] 50 mg PO TID #90 tab 11/30/18 Allergies Allergy/AdvReac Type Severity Reaction Status Date / Time Environmental Allergy Unknown Unknown Uncoded 12/14/18 15:42 Review of Systems ROS Statement: Those systems with pertinent positive or pertinent negative responses have been documented in the HPI. ROS Other: All systems not noted in ROS Statement are negative. Past Medical History Past Medical History: Coronary Artery Disease (CAD), Cancer, Chest Pain / Angina , Diabetes Mellitus, Eye Disorder, GERD/Reflux, Hyperlipidemia, Hypertension, Myocardial Infarction ([place]), Respiratory Disorder, Skin Disorder Additional Past Medical History / Comment(s): diverticular disorder, sob with activity, sinus problems,psoriasischronic back pain, sciatica, arthritis, cervical cancer Last Myocardial Infarction Date:: 2013 History of Any Multi-Drug Resistant Organisms: None Reported Past Surgical History: Cholecystectomy, Coronary Bypass/CABG, Heart Catheterization, Orthopedic Surgery, Tubal Ligation Additional Past Surgical History / Comment(s): heart cath 2013, left knee surgeryx3, cyst removed from right shoulder, surgery for sleep apnea and polyp removed, triple bypass surgery, patient states "she has had a surgery in her throat to help her breathe easier". Past Anesthesia/Blood Transfusion Reactions: Postoperative Nausea & Vomiting ( PONV) Past Psychological History: Anxiety, Depression Smoking Status: Never smoker Past Alcohol Use History: None Reported Past Drug Use History: Marijuana - Past Family History Daughter(s) Family Medical History: Diabetes Mellitus, Hyperlipidemia, Hypertension Mother Family Medical History: Diabetes Mellitus Additional Family Medical History / Comment(s): Patient states "she from a heart attack". General Exam Limitations: no limitations General appearance: alert, in no apparent distress Head exam: Present: atraumatic, normocephalic Eye exam: Present: normal appearance, PERRL, EOMI ENT exam: Present: normal exam Neck exam: Present: normal inspection. Absent: tenderness, meningismus Respiratory exam: Present: normal lung sounds bilaterally. Absent: respiratory distress Cardiovascular Exam: Present: tachycardia, irregular rhythm Extremities exam: Present: normal inspection, normal capillary refill. Absent: pedal edema Neurological exam: Present: alert, oriented X3, CN II-XII intact. Absent: motor sensory deficit Psychiatric exam: Present: normal affect, normal mood Skin exam: Present: warm, dry, intact. Absent: cyanosis, diaphoretic Course Vital Signs 12/14/18 12/14/18 12/14/18 15:29 16:26 16:54 Temperature 98.6 F Pulse Rate 125 H 114 H Pulse Rate [ 122 H Mate Chief ] Respiratory 24 18 Rate Blood Pressure 111/74 120/88 O2 Sat by Pulse 98 Oximetry EKG Findings - EKG Comments: EKG Findings:: EKG: Atrial flutter with inability AV block, rightward axis, no ST segment elevation, rate of 120, QRS duration 84, QTC 392 Medical Decision Making - Medical Decision Making 60-year-old female history of A. fib, presented with nausea vomiting, concern for CHF. Patient clinically appears dehydrated, not concerning for fluid overload. Patient has had nausea and vomiting for the past one week. Patient is in atrial flutter with rapid ventricular response, denies chest pain or palpitations. Vital signs are otherwise stable. Patient has supratherapeutic INR, Coumadin will be held. She has had several abnormalities including sodium 129, potassium 3.2, mild leukocytosis 13.8. BNP is negative. Patient will be given some IV hydration, as well as electrode replacement. Will be admitted for rate control. Case discussed with Dr. Frias, will admit. - Lab Data Result diagrams: 12/14/18 16:23 12/14/18 16:23 Lab Results 12/14/18 12/14/18 12/14/18 Range/Units 16:23 16:23 16:23 WBC 13.8 H (3.8-10.6) k/uL RBC 4.69 (3.80-5.40) m/uL Hgb 12.4 (11.4-16.0) gm/dL Hct 39.0 (34.0-46.0) % MCV 83.1 (80.0-100.0) fL MCH 26.5 (25.0-35.0) pg MCHC 31.9 (31.0-37.0) g/dL RDW 16.6 H (11.5-15.5) % Plt Count 363 (150-450) k/uL Neutrophils % 77 % Lymphocytes % 15 % Monocytes % 5 % Eosinophils % 1 % Basophils % 1 % Neutrophils # 10.6 H (1.3-7.7) k/uL Lymphocytes # 2.0 (1.0-4.8) k/uL Monocytes # 0.7 (0-1.0) k/uL Eosinophils # 0.1 (0-0.7) k/uL Basophils # 0.1 (0-0.2) k/uL Anisocytosis Slight PT (9.0-12.0) sec INR (<1.2) APTT (22.0-30.0) sec Sodium 129 L (137-145) mmol/L Potassium 3.2 L (3.5-5.1) mmol/L Chloride 79 L (98-107) mmol/L Carbon Dioxide 34 H (22-30) mmol/L Anion Gap 16 mmol/L BUN 56 H (7-17) mg/dL Creatinine 2.22 H (0.52-1.04) mg/dL Est GFR (CKD-EPI)AfAm 26 (>60 ml/min/1.73 sqM) Est GFR (CKD-EPI)NonAf 22 (>60 ml/min/1.73 sqM) Glucose 439 H (74-99) mg/dL Calcium 9.9 (8.4-10.2) mg/dL Magnesium 1.9 (1.6-2.3) mg/dL Total Bilirubin 1.0 (0.2-1.3) mg/dL AST 33 (14-36) U/L ALT 39 (9-52) U/L Alkaline Phosphatase 152 H (38-126) U/L Total Creatine Kinase 61 (30-135) U/L CK-MB (CK-2) 0.7 (0.0-2.4) ng/mL CK-MB (CK-2) Rel Index 1.1 Troponin I 0.027 (0.000-0.034) ng/mL NT-Pro-B Natriuret Pep pg/mL Total Protein 7.3 (6.3-8.2) g/dL Albumin 4.2 (3.5-5.0) g/dL Urine Color Urine Appearance (Clear) Urine pH (5.0-8.0) Ur Specific Bronson (1.001-1.035) Urine Protein (Negative) Urine Glucose (UA) (Negative) Urine Ketones (Negative) Urine Blood (Negative) Urine Nitrite (Negative) Urine Bilirubin (Negative) Urine Urobilinogen (<2.0) mg/dL Ur Leukocyte Esterase (Negative) Influenza Type A RNA (Not Detectd) Influenza Type B (PCR) (Not Detectd) 12/14/18 12/14/18 12/14/18 Range/Units 16:23 16:23 16:23 WBC (3.8-10.6) k/uL RBC (3.80-5.40) m/uL Hgb (11.4-16.0) gm/dL Hct (34.0-46.0) % MCV (80.0-100.0) fL MCH (25.0-35.0) pg MCHC (31.0-37.0) g/dL RDW (11.5-15.5) % Plt Count (150-450) k/uL Neutrophils % % Lymphocytes % % Monocytes % % Eosinophils % % Basophils % % Neutrophils # (1.3-7.7) k/uL Lymphocytes # (1.0-4.8) k/uL Monocytes # (0-1.0) k/uL Eosinophils # (0-0.7) k/uL Basophils # (0-0.2) k/uL Anisocytosis PT 53.0 H (9.0-12.0) sec INR 5.5 H* (<1.2) APTT 43.4 H (22.0-30.0) sec Sodium (137-145) mmol/L Potassium (3.5-5.1) mmol/L Chloride (98-107) mmol/L Carbon Dioxide (22-30) mmol/L Anion Gap mmol/L BUN (7-17) mg/dL Creatinine (0.52-1.04) mg/dL Est GFR (CKD-EPI)AfAm (>60 ml/min/1.73 sqM) Est GFR (CKD-EPI)NonAf (>60 ml/min/1.73 sqM) Glucose (74-99) mg/dL Calcium (8.4-10.2) mg/dL Magnesium (1.6-2.3) mg/dL Total Bilirubin (0.2-1.3) mg/dL AST (14-36) U/L ALT (9-52) U/L Alkaline Phosphatase (38-126) U/L Total Creatine Kinase (30-135) U/L CK-MB (CK-2) (0.0-2.4) ng/mL CK-MB (CK-2) Rel Index Troponin I (0.000-0.034) ng/mL NT-Pro-B Natriuret Pep 506 pg/mL Total Protein (6.3-8.2) g/dL Albumin (3.5-5.0) g/dL Urine Color Urine Appearance (Clear) Urine pH (5.0-8.0) Ur Specific Bronson (1.001-1.035) Urine Protein (Negative) Urine Glucose (UA) (Negative) Urine Ketones (Negative) Urine Blood (Negative) Urine Nitrite (Negative) Urine Bilirubin (Negative) Urine Urobilinogen (<2.0) mg/dL Ur Leukocyte Esterase (Negative) Influenza Type A RNA Not Detected (Not Detectd) Influenza Type B (PCR) Not Detected (Not Detectd) 12/14/18 Range/Units 17:10 WBC (3.8-10.6) k/uL RBC (3.80-5.40) m/uL Hgb (11.4-16.0) gm/dL Hct (34.0-46.0) % MCV (80.0-100.0) fL MCH (25.0-35.0) pg MCHC (31.0-37.0) g/dL RDW (11.5-15.5) % Plt Count (150-450) k/uL Neutrophils % % Lymphocytes % % Monocytes % % Eosinophils % % Basophils % % Neutrophils # (1.3-7.7) k/uL Lymphocytes # (1.0-4.8) k/uL Monocytes # (0-1.0) k/uL Eosinophils # (0-0.7) k/uL Basophils # (0-0.2) k/uL Anisocytosis PT (9.0-12.0) sec INR (<1.2) APTT (22.0-30.0) sec Sodium (137-145) mmol/L Potassium (3.5-5.1) mmol/L Chloride (98-107) mmol/L Carbon Dioxide (22-30) mmol/L Anion Gap mmol/L BUN (7-17) mg/dL Creatinine (0.52-1.04) mg/dL Est GFR (CKD-EPI)AfAm (>60 ml/min/1.73 sqM) Est GFR (CKD-EPI)NonAf (>60 ml/min/1.73 sqM) Glucose (74-99) mg/dL Calcium (8.4-10.2) mg/dL Magnesium (1.6-2.3) mg/dL Total Bilirubin (0.2-1.3) mg/dL AST (14-36) U/L ALT (9-52) U/L Alkaline Phosphatase (38-126) U/L Total Creatine Kinase (30-135) U/L CK-MB (CK-2) (0.0-2.4) ng/mL CK-MB (CK-2) Rel Index Troponin I (0.000-0.034) ng/mL NT-Pro-B Natriuret Pep pg/mL Total Protein (6.3-8.2) g/dL Albumin (3.5-5.0) g/dL Urine Color Light Yellow Urine Appearance Clear (Clear) Urine pH 6.0 (5.0-8.0) Ur Specific Bronson 1.006 (1.001-1.035) Urine Protein Negative (Negative) Urine Glucose (UA) 3+ H (Negative) Urine Ketones Negative (Negative) Urine Blood Negative (Negative) Urine Nitrite Negative (Negative) Urine Bilirubin Negative (Negative) Urine Urobilinogen <2.0 (<2.0) mg/dL Ur Leukocyte Esterase Negative (Negative) Influenza Type A RNA (Not Detectd) Influenza Type B (PCR) (Not Detectd) Critical Care Time Critical Care Time: Yes Total Critical Care Time: 35 Disposition Clinical Impression: Diabetes, Dehydration, Atrial fibrillation with RVR Disposition: ADMITTED IP TO THIS HOSP Condition: Stable Is patient prescribed a controlled substance at d/c from ED?: No Referrals: Dawit Frias MD [Primary Care Provider] - 1-2 days Decision to Admit Reason: Admit from EC Decision Date: 12/14/18 Decision Time: 18:00
[2018-12-14] MEDS: DILTIAZEM 125 MG in SODIUM CHLORIDE 0.9% 100 ML IV SCH (16:53)
--- NOTE | 2018-12-14 16:54 | XR ---
EXAMINATION: XR chest 2V DATE AND TIME: 12/14/2018 4:42 PM CLINICAL INDICATION: PHH; difficulty breathing TECHNIQUE: Departmental protocol COMPARISON: None FINDINGS: Sternal sutures noted. EKG leads. The lungs are clear. The pleural spaces are negative. The cardiac silhouette is mildly enlarged. The remainder of the mediastinal silhouette is unremarkabl e. The skeletal structures and soft tissues are negative for acute findings. IMPRESSION: NO ACUTE PROCESS.
--- NOTE | 2018-12-14 16:57 | XR ---
EXAMINATION TYPE: XR KUB DATE OF EXAM: 12/14/2018 COMPARISON: NONE HISTORY: Vomiting, pain TECHNIQUE: 2 supine views FINDINGS: The bowel gas pattern is normal, but excessive colonic stool is present. No definite acute radiographic soft tissue or skeletal findings. Noted that supine radiography cannot exclude abnormal gas collections. IMPRESSION: NO ACUTE RADIOGRAPHIC PROCESS, SUPINE ABDOMINOPELVIC XR EXAM.
[2018-12-14 17:09] LABS: Anisocytosis Slight; Basophils # (A) 0.1 k/uL (0-0.2); Basophils % (A) 1 %; Eosinophils # (A) 0.1 k/uL (0-0.7); Eosinophils % (A) 1 %; HGB 12.4 gm/dL (11.4-16.0); Lymphocytes % (A) 15 %; MCH 26.5 pg (25.0-35.0); MCHC 31.9 g/dL (31.0-37.0); MCV 83.1 fL (80.0-100.0); Mean Platelet Volume 9.4; Monocytes # (A) 0.7 k/uL (0-1.0); Monocytes % (A) 5 %; Neutrophils # (A) 10.6 k/uL (1.3-7.7); Neutrophils % (A) 77 %; Platelet Count 363 k/uL (150-450); RBC 4.69 m/uL (3.80-5.40); RDW 16.6 % (11.5-15.5); WBC 13.8 k/uL (3.8-10.6)
[2018-12-14 17:23] LABS: Albumin 4.2 g/dL (3.5-5.0); Calcium 9.9 mg/dL (8.4-10.2); Magnesium 1.9 mg/dL (1.6-2.3); Potassium 3.2 mmol/L (3.5-5.1); Total Protein 7.3 g/dL (6.3-8.2)
[2018-12-14 17:24] LABS: Partial Thromboplastin Time 43.4 sec (22.0-30.0)
[2018-12-14 17:34] LABS: INR 5.5 (<1.2)
[2018-12-14] MEDS ORDERED: POTASSIUM CHLORIDE ER 20 MEQ TAB.ER PO STA (17:35)
[2018-12-14] MEDS ORDERED: POTASSIUM CHLORIDE 20 MEQ in WATER FOR INJECTION 1 100ML.BAG IVPB STA (17:35)
[2018-12-14 17:40] LABS: Appearance,Urine Clear (Clear); Bilirubin,Urine Negative (Negative); Blood,Urine Negative (Negative); Color,Urine Light Yellow; Glucose,Urine (UA) 3+ (Negative); Ketones,Urine Negative (Negative); Leukocyte Esterase,Urine Negative (Negative); Nitrite,Urine Negative (Negative); Protein,Urine Negative (Negative); Specific Gravity,Urine 1.006 (1.001-1.035); Urobilinogen,Urine <2.0 mg/dL (<2.0)
[2018-12-14 17:42] LABS: Creatine Kinase MB 0.7 ng/mL (0.0-2.4); Troponin I 0.027 ng/mL (0.000-0.034)
[2018-12-14] MEDS ORDERED: NALOXONE 0.4 MG/ML 1 ML VIAL IV PRN (17:55)
[2018-12-14] MEDS ORDERED: MORPHINE SULFATE 4 MG/ML SYRINGE IVP STA (17:58)
[2018-12-14] MEDS ORDERED: SODIUM CHLORIDE 0.9% 1,000 ML IV SCH (18:00)
[2018-12-14] MEDS ORDERED: INSULIN REGULAR 100 UNIT/ML VIAL IV ONE (19:16)
[2018-12-14] MEDS ORDERED: ONDANSETRON 4 MG/2 ML VIAL IVP STA (19:16)
[2018-12-14 19:36] LABS: Glucose,Whole Blood 366 mg/dL (75-99)
[2018-12-14 20:33] LABS: Glucose,Whole Blood 284 mg/dL (75-99)
[2018-12-14] MEDS ORDERED: 0.9% NACL WITH KCL 20 MEQ/L 1,000 ML IV SCH (20:45)
[2018-12-14 20:59] LABS: Glucose,Whole Blood 261 mg/dL (75-99)
[2018-12-14] MEDS: METOCLOPRAMIDE 5 MG/ML 2 ML VIAL IVP PRN (21:06)
[2018-12-14] MEDS: ATORVASTATIN 40 MG TAB PO SCH (21:30)
[2018-12-14] MEDS: FAMOTIDINE 20 MG TAB PO SCH (21:30)
[2018-12-14] MEDS: METOPROLOL TARTRATE 50 MG TAB PO SCH (21:30)
[2018-12-14] MEDS: AMITRIPTYLINE HCL 10 MG TAB PO SCH (21:30)
[2018-12-14] MEDS: LISINOPRIL 20 MG TAB PO SCH (21:30)
[2018-12-14] MEDS: INSULIN ASPART (NovoLOG) 100 UNIT/ML VIAL SQ SCH (21:30)
[2018-12-14] MEDS: INSULIN DETEMIR (LEVEMIR) 100 UNIT/ML SYR SQ SCH (21:49)
--- NOTE | 2018-12-14 22:01 | HP ---
HISTORY AND PHYSICAL Mrs. Bocanegra is a 68-year-old female who presented to the emergency room with weakness, shortness of breath, repeat episodes of nausea, vomiting. The patient was hospitalized last month with left lower lobe pneumonia and atrial fibrillation with rapid ventricular response and acute on chronic congestive heart failure, systolic congestive heart failure. She generally had been doing well at home but continued to have more shortness of breath and states she has had episodes of nausea and vomiting after eating for several days. No associated chest pain. She has had some nonproductive cough but no fever or chills. No unusual abdominal pain. Actually, her edema has been decreased and controlled. Other past medical history includes: 1. History of coronary artery disease with previous bypass surgery in 2014. 2. She has chronic systolic congestive heart failure with ejection fraction of 40% to 45%. 3. She does have type 2 diabetes. 4. Hypertension. 5. Obesity. 6. Hyperlipidemia. 7. Chronic kidney disease, stage III to IV. 8. Paroxysmal atrial fibrillation, for which she is on Coumadin. 9. History of anxiety and depression. 10.She has chronic pain syndrome, which involves the knees and back for osteoarthritis, for which she takes Hopewell. 11.She did previously many years ago have an episode of gastroparesis, for which she required hospitalization and IV therapy. ALLERGIES: NO KNOWN MEDICAL ALLERGIES. HOME MEDICATIONS: Have included: 1. Paxil 20 mg daily. 2. Hopewell 5/325 one twice a day. 3. Xanax 0.5 three times a day as needed for anxiety. 4. Warfarin 5 mg daily. 5. Potassium chloride 10 mEq daily. 6. Actos 15 mg daily. 7. Metoprolol 50 mg 3 times a day. 8. Imodium 2 mg q.8 hours p.r.n. for diarrhea. 9. She has been on glargine insulin or Toujeo 70 units daily. 10.Lasix 40 mg twice a day. 11.Pepcid 20 mg twice a day. 12.Enalapril 10 mg twice a day. 13.Colace 100 mg daily. 14.Atorvastatin 40 mg. 15.Aspirin 81 mg. 16.Amitriptyline 10 mg at bedtime. REVIEW OF SYSTEMS: As mentioned in the history of present illness. The patient denies any unusual headache or visual disturbances or focal weakness. No pleuritic chest pain. No marked phlegm production. Shortness of breath with exertion. No hematemesis or hematochezia. No blood per rectum. Her edema has stayed fairly well controlled since discharge. PREVIOUS SURGICAL HISTORY: Includes: 1. Bypass surgery. 2. She has also had previous hysterectomy. 3. Cholecystectomy. 4. Left knee surgery. FAMILY HISTORY: Positive for diabetes. SOCIAL HISTORY: Negative for smoking or any excessive alcohol usage. She does live locally with her daughter. Her several years previous. PHYSICAL EXAMINATION: She is alert and oriented on the stretcher in the emergency room. VITAL SIGNS: Temperature of 98. Her pulse was rapid at 129, respirations 18-22 , blood pressure 142/82. She is 95% saturated on 2 L. Head and neck exam is otherwise unremarkable. Neck is not stiff. No thyromegaly, adenopathy or bruits detected. Breasts and pelvic exam deferred. Lungs were generally clear. Heart tones were irregular and tachycardic. No definite murmurs or rubs appreciated. Abdomen was mildly distended. Positive bowel sounds. Soft and nontender without rebound, guarding or masses detected. Extremities revealed no unusual edema. Neurologically she is alert and oriented. Cranial nerves intact. No focal deficits noted. LABORATORY: White count was 13.8 with a hemoglobin 12.4 and a platelet count of 363. Neutrophils slightly shifted to the left at 10.6. INR was elevated 5.4 with a PTT of 53. Sodium is mildly low at 129 with a potassium 3.2, CO2 content of 34, BUN of 56 with creatinine 2.22. Blood sugar was 439. Liver function tests were generally unremarkable. In terms of the enzymes, alkaline phosphatase was elevated at 152 with a normal bilirubin of 1.0, albumin normal at 4.2. Troponin low at 0.027. ProBNP was 506, which for her age appears to be within normal limits. Urinalysis revealed 3+ glucose, but leukocyte esterase was negative. Influenza A and B were negative. The patient did have a chest x-ray which showed some mild cardiomegaly but no signs of congestive heart failure or definitive infiltrate, pneumonia was seen. KUB of the abdomen did not show any acute process. Bowel gas pattern was normal. There was some excessive colonic stool present. Her EKG showed atrial fibrillation versus flutter with a variable block and rapid ventricular response. OVERALL IMPRESSION AT THIS POINT: 1. Gastroparesis with repetitive nausea, vomiting, and likely difficulty retaining her beta-rafael medications resulting in atrial fibrillation with a rapid ventricular response in this lady with underlying diabetes and hyperglycemia. 2. Acute on chronic renal failure secondary to some prerenal azotemia related to her nausea, vomiting, gastroparesis with a BUN of 56 and creatinine of 2.22, giving her a GFR of 22; also associated with electrolyte disturbance of hyponatremia and hypokalemia. This all along with her past medical history as delineated above in the body of the report. 3. Supratherapeutic INR of 5.5 on Coumadin. OVERALL PLAN AT THIS TIME: Her Coumadin will be on hold and INR is to be rechecked. She will be on a Cardizem drip. She will be on IV saline with potassium replacement. Follow-up laboratory values. Consults to be obtained with Gastroenterology and Cardiology for recommendations on further management as discussed with the patient and daughter at bedside today. MMPARUL / IVONN: [id number] / MTDBetty
[2018-12-15] MEDS: METOCLOPRAMIDE 5 MG/ML 2 ML VIAL IVP PRN ×3 (02:18→19:46)
[2018-12-15 06:13] LABS: Glucose,Whole Blood 178 mg/dL (75-99)
[2018-12-15] MEDS: INSULIN ASPART (NovoLOG) 100 UNIT/ML VIAL SQ SCH ×4 (06:55→21:27)
[2018-12-15 07:49] LABS: Anisocytosis Slight; Basophils # (A) 0.1 k/uL (0-0.2); Basophils % (A) 0 %; Eosinophils # (A) 0.1 k/uL (0-0.7); Eosinophils % (A) 0 %; HCT 37.1 % (34.0-46.0); HGB 11.8 gm/dL (11.4-16.0); Hypochromasia Slight; Lymphocytes # (A) 3.4 k/uL (1.0-4.8); Lymphocytes % (A) 24 %; MCH 26.9 pg (25.0-35.0); MCHC 31.7 g/dL (31.0-37.0); MCV 84.9 fL (80.0-100.0); Mean Platelet Volume 8.7; Monocytes # (A) 0.7 k/uL (0-1.0); Monocytes % (A) 5 %; Neutrophils # (A) 9.7 k/uL (1.3-7.7); Neutrophils % (A) 69 %; Platelet Count 353 k/uL (150-450); RBC 4.37 m/uL (3.80-5.40); RDW 16.7 % (11.5-15.5); WBC 14.1 k/uL (3.8-10.6)
[2018-12-15 07:57] LABS: INR 4.3 (<1.2); Prothrombin Time 41.2 sec (9.0-12.0)
[2018-12-15 07:58] LABS: Calcium 9.5 mg/dL (8.4-10.2); Potassium 3.5 mmol/L (3.5-5.1)
[2018-12-15] MEDS ORDERED: POTASSIUM CHLORIDE ER 10 MEQ TAB.ER.PRT PO SCH (09:00)
--- NOTE | 2018-12-15 09:56 | P.PN ---
Progress Note - Text The patient is a 68-year-old female who presented presented to the emergency room yesterday with weakness, shortness of breath, recurrent episodes of nausea and vomiting. Patient was hospitalized last month with the pneumonia along with atrial fibrillation and a rapid ventricular response and acute on chronic congestive heart failure systolic component. She initially did well at home but then symptoms as stated above started. In the emergency room she was found to be in atrial fibrillation with a rapid ventricular response. She also seemed to be more on the prerenal side with elevated BUN/creatinine of 56 and 2.2 respectively. Also her potassium was slightly low and sodium was low. The patient has been maintained on Cardizem drip through the night. Her heart rate is better but still approximately 100 210 atrial fibrillation. Question flutter. Patient states she feels tired from last night. Does not feel short of breath. No chest pain. Has had vomiting through the night according to the patient. Vital signs show temperature 97.4 with a pulse of 106 irregular on the monitor at the nursing station. Respirations were 15 and blood pressure 109/57. She is 95% saturated on room air. Lungs are clear. Heart tones were irregular as above. Abdomen nontender. No edema. No focal neurological deficits. Laboratory This morning her sodium has improved to 132 with a potassium 3.5. CO2 content is 34. BUN is 59. Creatinine has risen to 3.42 given her a GFR of only 13. Blood sugar which was in the 400s on presentation is down to 178. White count is 14 with a hemoglobin 11.8 and a platelet count of 353. Impressions and plans Patient continues to have atrial fibrillation with a somewhat better rate. Sodium and potassium are improved but elevation of BUN and creatinine. At this time we will hold her lisinopril and potassium replacement has been stopped. Continue on IV normal saline at 50 mL an hour. Consults have been placed with cardiology, nephrology and gastroenterology. And further recommendations pending clinical response and results of above. Discussed with the patient at bedside this morning.
[2018-12-15] MEDS: METOPROLOL TARTRATE 50 MG TAB PO SCH ×3 (10:20→19:46)
[2018-12-15] MEDS: PARoxetine 20 MG TAB PO SCH (10:20)
[2018-12-15] MEDS: HYDROcodone/APAP 5-325MG 1 EACH TAB PO PRN ×2 (10:21→19:45)
[2018-12-15] MEDS: FAMOTIDINE 20 MG TAB PO SCH ×2 (10:21→19:46)
[2018-12-15] MEDS ORDERED: POTASSIUM CHLORIDE ER 20 MEQ TAB.ER PO STA (11:19)
--- NOTE | 2018-12-15 11:19 | P.NPCON ---
History of Present Illness - Reason for Consult acute renal failure - History of Present Illness Reason for consultation: Acute kidney injury History of present illness: Patient is a 68-year-old female seen in renal consultation for acute kidney injury. Patient's creatinine in 2013 was 1-1.1. On 11/27/2018 her creatinine was 1.9. It was elevated at 2.2 this admission and is up to 3.42 today. Patient was admitted last month is CHF exacerbation. She was discharged home on diuretics that she has been taking up until admission. She was also on lisinopril. Urinalysis is benign. Chest x-ray reveals no evidence of fluid overload. Patient presented to the hospital due to vomiting going on for the last 4 days. Oral intake has been extremely poor. No diarrhea. Denies use of NSAIDs. She does a history of diabetes mellitus and was diagnosed over 20 years ago. Patient had multiple episodes of vomiting last night. She is also been in atrial fibrillation with RVR and was maintained on Cardizem drip overnight. Heart rate improved to 60s and it was discontinued. Now heart rate is again up in the 120s. Her blood pressures have been quite labile. She has not been voiding much. No evidence of urinary retention. Vital signs are stable. General: The patient appeared well nourished and normally developed. HEENT: Head exam is unremarkable. Neck is without jugular venous distension. LUNGS: Lungs are clear to auscultation and percussion. Breath sounds decreased. HEART: Irregular rate and rhythm. ABDOMEN: Abdominal exam reveals normal bowel sounds. Non-tender and non- distended. No evidence of peritonitis. EXTREMITITES: No clubbing, cyanosis, or edema. Past Medical History Past Medical History: Atrial Fibrillation, Coronary Artery Disease (CAD), Cancer , Chest Pain / Angina, Heart Failure, Diabetes Mellitus, Eye Disorder, GERD/ Reflux, Hyperlipidemia, Hypertension, Myocardial Infarction ([place]), Respiratory Disorder, Skin Disorder Additional Past Medical History / Comment(s): diverticular disorder, sob with activity, sinus problems,psoriasischronic back pain, sciatica, arthritis, cervical cancer . 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 Past Anesthesia/Blood Transfusion Reactions: Motion Sickness, Postoperative Nausea & Vomiting (PONV) Additional Past Anesthesia/Blood Transfusion Reaction / Comment(s): clausterphobia. has never received any blood transfusions Smoking Status: Never smoker - Past Family History Daughter(s) Family Medical History: Diabetes Mellitus, Hyperlipidemia, Hypertension Mother Family Medical History: Diabetes Mellitus Additional Family Medical History / Comment(s): Patient states "she from a heart attack". Medications and Allergies Home Medications Medication Instructions Recorded Confirmed Type ALPRAZolam [Xanax] 0.5 mg PO TID PRN 03/06/14 12/14/18 History Famotidine [Pepcid] 20 mg PO BID 03/06/14 12/14/18 History Docusate [Colace] 100 mg PO DAILY #30 cap 03/10/14 12/14/18 Rx Enalapril [Vasotec] 10 mg PO BID #60 tab 03/10/14 12/14/18 Rx Amitriptyline HCl [Elavil] 10 mg PO HS 11/26/18 12/14/18 History Aspirin [[place] Aspirin EC] 81 mg PO DAILY 11/26/18 12/14/18 History HYDROcodone/APAP 5-325MG [[place] 1 tab PO BID PRN 11/26/18 12/14/18 History 5-325] Insulin Glargine,Hum.rec.anlog 70 units SQ DAILY 11/26/18 12/14/18 History [[place] Solostar] Loperamide [Imodium] 2 mg PO Q8H 11/26/18 12/14/18 History PARoxetine [Paxil] 20 mg PO DAILY 11/26/18 12/14/18 History Pioglitazone HCl [Actos] 15 mg PO DAILY 11/26/18 12/14/18 History Potassium Chloride ER [K-Dur 10] 10 meq PO DAILY 11/26/18 12/14/18 History Warfarin [Coumadin] 5 mg PO DAILY 11/26/18 12/14/18 History Atorvastatin [Lipitor] 40 mg PO HS #30 tablet 11/30/18 12/14/18 Rx Metoprolol Tartrate [Lopressor] 50 mg PO TID #90 tab 11/30/18 12/14/18 Rx Furosemide [Lasix] 40 mg PO BID 12/14/18 12/14/18 History Allergies Allergy/AdvReac Type Severity Reaction Status Date / Time Environmental Allergy Unknown Unknown Uncoded 12/14/18 15:42 Physical Exam Vitals: Vital Signs Temp Pulse Pulse Pulse Resp BP BP 12/15/18 04:00 97.4 F L 64 15 109/57 12/15/18 00:00 97.4 F L 141 H 72 16 99/58 12/14/18 20:15 98.5 F 124 H 22 142/82 12/14/18 20:00 98.8 F 141 H 105 H 19 171/91 12/14/18 19:41 124 H 18 152/80 12/14/18 19:09 98.5 F 112 H 18 135/72 12/14/18 18:09 129 H 18 115/98 12/14/18 16:54 114 H 18 120/88 12/14/18 16:26 122 H 12/14/18 15:29 98.6 F 125 H 24 111/74 Pulse Ox 12/15/18 04:00 95 12/15/18 00:00 99 12/14/18 20:15 95 12/14/18 20:00 96 12/14/18 19:41 12/14/18 19:09 12/14/18 18:09 12/14/18 16:54 12/14/18 16:26 12/14/18 15:29 98 Intake and Output 12/14/18 12/15/18 12/15/18 22:59 06:59 14:59 Intake Total 432.833 20 700 Balance 432.833 20 700 Intake: IV 10 20 Invasive Line 1 10 20 Intake, IV Titration 302.833 Amount 0.9% NaCl with KCl 20 Meq 75 /l 1,000 ml @ 75 mls/hr IV .[id number] [facility] Rx#: [id number] Diltiazem 125 mg In 52.833 Sodium Chloride 0.9% 100 ml @ 5 MG/HR 5 mls/hr IV .Q24H [facility] Rx#:[id number] Potassium Chloride 20 meq 100 In Water For Injection 1 100ml.bag @ 50 mls/hr IVPB ONCE STA Rx#: [id number] Sodium Chloride 0.9% 1, 75 000 ml @ 75 mls/hr IV . [id number] [facility] Rx#:[id number] Oral 120 700 Other: Voiding Method Toilet Toilet # Voids 1 1 Weight 112.945 kg 106.9 kg Results - Lab Results Most recent lab results Calcium 9.5 mg/dL (8.4-10.2) 12/15/18 06:21 Magnesium 1.9 mg/dL (1.6-2.3) 12/14/18 16:23 12/15/18 06:21 12/15/18 06:21 Assessment and Plan Plan: Assessment: 1. Acute kidney injury secondary to ATN secondary to intravascular volume depletion from vomiting, diuretics and lisinopril. Creatinine of 3.42 today. Urinalysis is benign. No evidence of urinary retention. 2. Rule out chronic kidney disease. Last month her creatinine was near 1.8. Prior to that it was 1-1.1 in 2013. 3. Hypovolemic hyponatremia improving with IV hydration. 4. Systolic CHF with ejection fraction of 40-45% with moderate pulmonary hypertension. Compensated. 5. Hypokalemia secondary to diuresis. Improved. 6. Diabetes mellitus. 7. Atrial fibrillation with RVR. 8. Vomiting. ? Diabetic gastroparesis versus infectious. Plan: Increase rate of normal saline 200 mL an hour. Avoid nephrotoxins. Continue to hold lisinopril and diuretics. Replace potassium. 20 mg once today. Check renal ultrasound. Repeat electrolytes in the morning. Thank you for the consultation. I will continue to follow the patient with you during her hospital stay.
[2018-12-15] MEDS ORDERED: BISACODYL 5 MG TABLET.DR PO STA (11:27)
[2018-12-15] MEDS ORDERED: DOCUSATE 100 MG CAP PO SCH (11:30)
[2018-12-15] MEDS: LISINOPRIL 20 MG TAB PO SCH (11:53)
--- NOTE | 2018-12-15 11:54 | P.CRDCN ---
History of Present Illness Consult date: 12/15/18 Requesting physician: Dawit Frias Reason for Consult (text): A fib with RVR Chief complaint: generalized weakness, fatigue History of present illness: This is a pleasant 68-year-old female patient with known history of coronary artery disease, prior coronary artery bypass grafting surgery, diabetes, hypertension, hyperlipidemia, paroxysmal atrial fibrillation for which she takes Coumadin and recent admission for diastolic congestive heart failure. She presents this admission because of complaints of generalized weakness and fatigue as well as some nausea and vomiting. Upon admission she was found to be in atrial flutter with rapid ventricular response. The trachea values show a white blood cell count of 14,000, INR 5.5, sodium 129, potassium 3.2, BUN of 56 and creatinine of 2.22 with a troponin of 0.027 and an NT proBNP which is normal at 506, this was elevated at 2800 during previous admission. Laboratory values this morning showed a sodium of 132, potassium 3.5, BUN of 59 and creatinine of 3.42. Patient did have some issues with nausea and vomiting through the night but is feeling a bit better this morning. She remains in atrial flutter with a heart rate of 1 teens to 120s. Blood pressure is running borderline low through the night and this morning. Chest xray on admission showed no acute process. KUB x-ray showed no acute radiographic process. Nephrology has been consulted and IV fluids have been increased to 200 mL an hour. Lisinopril and diuretics have been placed on hold. Past Medical History Past Medical History: Atrial Fibrillation, Coronary Artery Disease (CAD), Cancer , Chest Pain / Angina, Heart Failure, Diabetes Mellitus, Eye Disorder, GERD/ Reflux, Hyperlipidemia, Hypertension, Myocardial Infarction ([place]), Respiratory Disorder, Skin Disorder Additional Past Medical History / Comment(s): diverticular disorder, sob with activity, sinus problems,psoriasischronic back pain, sciatica, arthritis, cervical cancer . 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 Past Anesthesia/Blood Transfusion Reactions: Motion Sickness, Postoperative Nausea & Vomiting (PONV) Additional Past Anesthesia/Blood Transfusion Reaction / Comment(s): clausterphobia. has never received any blood transfusions Smoking Status: Never smoker - Past Family History Daughter(s) Family Medical History: Diabetes Mellitus, Hyperlipidemia, Hypertension Mother Family Medical History: Diabetes Mellitus Additional Family Medical History / Comment(s): Patient states "she from a heart attack". Medications and Allergies Home Medications Medication Instructions Recorded Confirmed Type ALPRAZolam [Xanax] 0.5 mg PO TID PRN 03/06/14 12/14/18 History Famotidine [Pepcid] 20 mg PO BID 03/06/14 12/14/18 History Docusate [Colace] 100 mg PO DAILY #30 cap 03/10/14 12/14/18 Rx Enalapril [Vasotec] 10 mg PO BID #60 tab 03/10/14 12/14/18 Rx Amitriptyline HCl [Elavil] 10 mg PO HS 11/26/18 12/14/18 History Aspirin [[place] Aspirin EC] 81 mg PO DAILY 11/26/18 12/14/18 History HYDROcodone/APAP 5-325MG [[place] 1 tab PO BID PRN 11/26/18 12/14/18 History 5-325] Insulin Glargine,Hum.rec.anlog 70 units SQ DAILY 11/26/18 12/14/18 History [[place] Solostar] Loperamide [Imodium] 2 mg PO Q8H 11/26/18 12/14/18 History PARoxetine [Paxil] 20 mg PO DAILY 11/26/18 12/14/18 History Pioglitazone HCl [Actos] 15 mg PO DAILY 11/26/18 12/14/18 History Potassium Chloride ER [K-Dur 10] 10 meq PO DAILY 11/26/18 12/14/18 History Warfarin [Coumadin] 5 mg PO DAILY 11/26/18 12/14/18 History Atorvastatin [Lipitor] 40 mg PO HS #30 tablet 11/30/18 12/14/18 Rx Metoprolol Tartrate [Lopressor] 50 mg PO TID #90 tab 11/30/18 12/14/18 Rx Furosemide [Lasix] 40 mg PO BID 12/14/18 12/14/18 History Allergies Allergy/AdvReac Type Severity Reaction Status Date / Time Environmental Allergy Unknown Unknown Uncoded 12/14/18 15:42 Physical Exam Vitals: Vital Signs Temp Pulse Pulse Pulse Resp BP BP 12/15/18 04:00 97.4 F L 64 15 109/57 12/15/18 00:00 97.4 F L 141 H 72 16 99/58 12/14/18 20:15 98.5 F 124 H 22 142/82 12/14/18 20:00 98.8 F 141 H 105 H 19 171/91 12/14/18 19:41 124 H 18 152/80 12/14/18 19:09 98.5 F 112 H 18 135/72 12/14/18 18:09 129 H 18 115/98 12/14/18 16:54 114 H 18 120/88 12/14/18 16:26 122 H 12/14/18 15:29 98.6 F 125 H 24 111/74 Pulse Ox 12/15/18 04:00 95 12/15/18 00:00 99 12/14/18 20:15 95 12/14/18 20:00 96 12/14/18 19:41 12/14/18 19:09 12/14/18 18:09 12/14/18 16:54 12/14/18 16:26 12/14/18 15:29 98 Intake and Output 12/14/18 12/15/18 12/15/18 22:59 06:59 14:59 Intake Total 432.833 20 700 Balance 432.833 20 700 Intake: IV 10 20 Invasive Line 1 10 20 Intake, IV Titration 302.833 Amount 0.9% NaCl with KCl 20 Meq 75 /l 1,000 ml @ 75 mls/hr IV .[id number] [facility] Rx#: [id number] Diltiazem 125 mg In 52.833 Sodium Chloride 0.9% 100 ml @ 5 MG/HR 5 mls/hr IV .Q24H [facility] Rx#:[id number] Potassium Chloride 20 meq 100 In Water For Injection 1 100ml.bag @ 50 mls/hr IVPB ONCE STA Rx#: [id number] Sodium Chloride 0.9% 1, 75 000 ml @ 75 mls/hr IV . [id number] [facility] Rx#:[id number] Oral 120 700 Other: Voiding Method Toilet Toilet # Voids 1 1 Weight 112.945 kg 106.9 kg PHYSICAL EXAMINATION: HEENT: Head is atraumatic, normocephalic. Pupils equal, round. Neck is supple. There is no elevated jugular venous pressure. HEART EXAMINATION: Heart sounds irregularly irregular, S1 and S2 normal. No murmur or gallop heard. CHEST EXAMINATION: Lungs are clear to auscultation and precussion. No chest wall tenderness is noted on palpation or with deep breathing. ABDOMEN: Soft, obese, nontender. Bowel sounds are heard. No organomegaly noted. EXTREMITIES: 2+ peripheral pulses with no evidence of peripheral edema and no calf tenderness noted. NEUROLOGIC patient is awake, alert and oriented x3. . Results 12/15/18 06:21 12/15/18 06:21 Cardiac Enzymes 12/14/18 12/14/18 Range/Units 16:23 16:23 AST 33 (14-36) U/L CK-MB (CK-2) 0.7 (0.0-2.4) ng/mL Troponin I 0.027 (0.000-0.034) ng/mL Coagulation 12/14/18 12/15/18 Range/Units 16:23 06:21 PT 53.0 H 41.2 H (9.0-12.0) sec APTT 43.4 H (22.0-30.0) sec CBC 12/14/18 12/15/18 Range/Units 16:23 06:21 WBC 13.8 H 14.1 H (3.8-10.6) k/uL RBC 4.69 4.37 (3.80-5.40) m/uL Hgb 12.4 11.8 (11.4-16.0) gm/dL Hct 39.0 37.1 (34.0-46.0) % Plt Count 363 353 (150-450) k/uL Comprehensive Metabolic Panel 12/14/18 12/15/18 Range/Units 16:23 06:21 Sodium 129 L 132 L (137-145) mmol/L Potassium 3.2 L 3.5 (3.5-5.1) mmol/L Chloride 79 L 85 L (98-107) mmol/L Carbon Dioxide 34 H 34 H (22-30) mmol/L BUN 56 H 59 H (7-17) mg/dL Creatinine 2.22 H 3.42 H (0.52-1.04) mg/dL Glucose 439 H 178 H (74-99) mg/dL Calcium 9.9 9.5 (8.4-10.2) mg/dL AST 33 (14-36) U/L ALT 39 (9-52) U/L Alkaline Phosphatase 152 H (38-126) U/L Total Protein 7.3 (6.3-8.2) g/dL Albumin 4.2 (3.5-5.0) g/dL Current Medications Generic Name Dose Route Start Last Admin Trade Name Freq PRN Reason Stop Dose Admin Hydrocodone Bitart/Acetaminophen 1 each 12/14/18 20:32 12/15/18 10:21 [place] 5-325 PO 1 each BID PRN Administration Pain Alprazolam 0.5 mg 12/14/18 20:32 Xanax PO TID PRN Anxiety Amitriptyline HCl 10 mg 12/14/18 21:00 12/14/18 21:30 Elavil PO 10 mg HS [facility] Administration Atorvastatin Calcium 40 mg 12/14/18 21:00 12/14/18 21:30 Lipitor PO 40 mg HS [facility] Administration Famotidine 20 mg 12/14/18 21:00 12/15/18 10:21 Pepcid PO 20 mg BID [facility] Administration Diltiazem HCl 125 mg/ Sodium 125 mls @ 5 mls/hr 12/14/18 16:15 12/14/18 22:49 Chloride IV 0 mg/hr .Q24H [facility] 0 mls/hr Infusion 5 MG/HR Sodium Chloride 1,000 mls @ 100 mls/hr 12/15/18 09:45 Saline 0.9% IV .Q10H [facility] Insulin Aspart 0 unit 12/14/18 21:00 12/15/18 06:55 Novolog SQ 2 unit ACHS [facility] Administration Protocol Insulin Detemir 35 unit 12/14/18 21:00 12/14/18 21:49 Levemir SQ 35 unit HS [facility] Administration Metoclopramide HCl 5 mg 12/14/18 20:28 12/15/18 02:18 Reglan IVP 5 mg Q6HR PRN Administration Nausea And Vomiting Metoprolol Tartrate 50 mg 12/14/18 22:00 12/15/18 10:20 Lopressor PO 50 mg TID [facility] Administration Naloxone HCl 0.2 mg 12/14/18 17:55 Narcan IV Q2M PRN Opioid Reversal Paroxetine HCl 20 mg 12/15/18 09:00 12/15/18 10:20 Paxil PO 20 mg DAILY [facility] Administration Intake and Output 12/14/18 12/15/18 12/15/18 22:59 06:59 14:59 Intake Total 432.833 20 700 Balance 432.833 20 700 Intake: IV 10 20 Invasive Line 1 10 20 Intake, IV Titration 302.833 Amount 0.9% NaCl with KCl 20 Meq 75 /l 1,000 ml @ 75 mls/hr IV .[id number] [facility] Rx#: [id number] Diltiazem 125 mg In 52.833 Sodium Chloride 0.9% 100 ml @ 5 MG/HR 5 mls/hr IV .Q24H [facility] Rx#:[id number] Potassium Chloride 20 meq 100 In Water For Injection 1 100ml.bag @ 50 mls/hr IVPB ONCE STA Rx#: [id number] Sodium Chloride 0.9% 1, 75 000 ml @ 75 mls/hr IV . [id number] [facility] Rx#:[id number] Oral 120 700 Other: Voiding Method Toilet Toilet # Voids 1 1 Weight 112.945 kg 106.9 kg 12/15/18 06:21 12/15/18 06:21 EKG Interpretations (text) Atrial flutter with rapid ventricular response Assessment and Plan Assessment: #1 typical atrial flutter with rapid ventricular response #2 acute kidney injury secondary to nausea, vomiting, dehydration #3 chronic diastolic congestive heart failure, currently patient is quite dry #4 history of CAD with prior bypass surgery #5 hypertension with episodes of hypotension #6 diabetes #7 hyperlipidemia Plan: From cardiology's perspective, we agree with fluid bolus as patient is quite dehydrated. Continue metoprolol 50 mg by mouth 3 times a day. Continue to monitor the patient's renal function and electrolytes. Watch her closely for fluid overload due to history of diastolic congestive heart failure. Hold Coumadin for now and monitor PT with INR. We will continue to follow the patient and write further recommendations accordingly. MANAGER HOSPICE note has been reviewed, I agree with a documented findings and plan of care. Patient was seen and examined.
[2018-12-15 11:56] LABS: Glucose,Whole Blood 259 mg/dL (75-99)
[2018-12-15] MEDS: SODIUM CHLORIDE 0.9% 1,000 ML IV SCH ×2 (12:05→19:48)
--- NOTE | 2018-12-15 15:41 | CONS ---
CONSULTATION DATE OF SURGERY: 12/15/2018 REQUESTING PHYSICIAN: Dr. Frias. REASON FOR CONSULTATION: Nausea and vomiting, and abdominal pain of 1 week duration. HISTORY OF PRESENT ILLNESS: The patient is a 68-year-old pleasant white female who was admitted to the hospital with progressive weakness, persistent nausea, vomiting for the last 1 week duration. The patient was recently admitted to the hospital and was discharged home last Monday after diagnosing with left lower lobe pneumonia and atrial fib with rapid ventricular heart rate as well as congestive heart failure. She was discharged on antibiotics which she just finished 2 days ago. As soon as she was discharged from the hospital last Monday she started having nausea and the following day and had several episodes of emesis. This continued for the next 4 days and became extremely violent and she threw up almost 12 times on . She was advised by Dr. Frias to come to the emergency room and subsequently admitted to the hospital for further evaluation. Yesterday she had about 7 or 8 episodes of emesis. Her abdominal pain has resolved. She has some dry heaves this morning. She never had these symptoms in the past. No recent NSAID use. No rectal bleeding or melena. PAST MEDICAL HISTORY: Significant for coronary artery disease status post bypass surgery in 2013, history of congestive heart failure, hypertension, diabetes mellitus, morbid obesity, hyperlipidemia, atrial fibrillation on Coumadin, anxiety, depression. PAST SURGICAL HISTORY: CABG, hysterectomy, cholecystectomy, left knee surgery. MEDICATIONS: At home, Paxil, [place], Xanax, Coumadin, potassium chloride, Actos, metoprolol, Imodium, Lasix, Pepcid, and heparin, Enalapril, Colace, atorvastatin, aspirin, amitriptyline, . SOCIAL HISTORY: No smoking. No alcohol use. FAMILY HISTORY: Positive for diabetes. REVIEW OF SYSTEMS: Cardiopulmonary: No chest pain, shortness of breath. Genitourinary: No dysuria or hematuria. Musculoskeletal unremarkable. Skin unremarkable. Endocrine unremarkable. Psychiatric unremarkable. Neurology unremarkable. ENT vision unremarkable. Constitutional: No recent weight loss. No fever, chills, night sweats. PHYSICAL EXAMINATION: Blood pressure is 140/82, pulse rate 124, and temperature 97.4. HEENT examination unremarkable. Conjunctivae pink. Sclerae anicteric. Oral cavity no lesions. Neck no jugular venous distention or lymph node enlargement. Chest was clear to auscultation. HEART: Regular rate and rhythm. ABDOMEN: Soft, minimal tenderness in the epigastric area. Bowel sounds are positive. No organomegaly. Extremities: No pedal edema. Skin no rashes. NEUROLOGIC: Alert and oriented x3. No focal deficits. LABS: Done at the time of admission to the hospital: WBC is 13.8 hemoglobin 12.4, platelets are normal. PTT is 53. INR is 5.5. Sodium 132, potassium 3.5, chloride 85, CO2 34, BUN is 59, creatinine 3.42, PTT 41.2. INR is 4.3. Labs from today: WBC is 14.1. IMPRESSION: 1. This is a lady who presents with nausea, vomiting for the last 1 week duration. She had some vague epigastric discomfort along with the symptoms. She was just discharged from the hospital a week ago at which time she was admitted with pneumonia as well as atrial fibrillation with rapid ventricular heart rate. She was sent home on oral antibiotics and it appears that most likely we are dealing with antibiotic related side effects. She did finish a course of antibiotics last . However, she continued to have persistent nausea and vomiting and hence is admitted to the hospital. Since being here, her symptoms are gradually improving. Presently on a clear liquid, diet tolerating somewhat. Doubt any upper gastrointestinal pathology or peptic ulcer disease. 2. Atrial fibrillation with RVR on Coumadin. Heart rate today is well controlled. 3. Longstanding history of diabetes mellitus. 4. Hypertension, hyperlipidemia and coronary artery disease. RECOMMENDATIONS: 1. Continue with Pepcid 20 mg twice daily as well as the antiemetics as needed. 2. We will start her on a clear liquid diet and gradually advance as tolerated. 3. No reason for any endoscopy intervention at this present time and hopefully in the next 24-48 hours, her symptoms are gradually going to improve. The plan was discussed with the patient. She is agreeable to it and at this time we will follow her closely during the hospital stay. Thank you for this consultation. KLAUDIAL / IVONN: [id number] /
--- NOTE | 2018-12-15 16:04 | US ---
EXAMINATION TYPE: US kidneys/renal and bladder DATE OF EXAM: 12/15/2018 COMPARISON: NONE CLINICAL HISTORY: bia. abnormal labs, constipated, large body habitus EXAM MEASUREMENTS: Right Kidney: 10.0 x 4.5 x 4.8 cm Left Kidney: 6.6 x 2.9 x 3.0 cm Right Kidney: No hydronephrosis or masses seen Left Kidney: atrophic Bladder: not distended There is no evidence for hydronephrosis at this point in time. No nephrolithiasis is seen. No travis s are identified. The urinary bladder is nondistended and suboptimally evaluated. IMPRESSION: Atrophic left kidney with diminished cortical medullary differentiation representing sequela of chron ic renal disease. No right-sided hydronephrosis or nephrolithiasis.
[2018-12-15] MEDS: DILTIAZEM 125 MG in SODIUM CHLORIDE 0.9% 100 ML IV SCH (17:16)
[2018-12-15 17:20] LABS: Glucose,Whole Blood 173 mg/dL (75-99)
[2018-12-15] MEDS: ATORVASTATIN 40 MG TAB PO SCH (19:45)
[2018-12-15] MEDS: AMITRIPTYLINE HCL 10 MG TAB PO SCH (19:45)
[2018-12-15] MEDS: ALPRAZolam 0.5 MG TAB PO PRN (19:46)
[2018-12-15 20:57] LABS: Glucose,Whole Blood 115 mg/dL (75-99)
[2018-12-15] MEDS: INSULIN DETEMIR (LEVEMIR) 100 UNIT/ML SYR SQ SCH (21:28)
[2018-12-16 04:37] LABS: Glucose,Whole Blood 72 mg/dL (75-99)
[2018-12-16 04:37] LABS: Glucose,Whole Blood 65 mg/dL (75-99)
[2018-12-16 05:35] LABS: Anisocytosis Slight; Basophils % (A) 0 %; Eosinophils # (A) 0.1 k/uL (0-0.7); Eosinophils % (A) 1 %; HCT 34.9 % (34.0-46.0); HGB 11.1 gm/dL (11.4-16.0); Lymphocytes # (A) 2.6 k/uL (1.0-4.8); Lymphocytes % (A) 16 %; MCH 26.9 pg (25.0-35.0); MCHC 31.7 g/dL (31.0-37.0); MCV 84.9 fL (80.0-100.0); Mean Platelet Volume 9.5; Monocytes # (A) 0.7 k/uL (0-1.0); Monocytes % (A) 4 %; Neutrophils # (A) 12.8 k/uL (1.3-7.7); Neutrophils % (A) 78 %; Platelet Count 284 k/uL (150-450); RBC 4.11 m/uL (3.80-5.40); RDW 16.9 % (11.5-15.5); WBC 16.4 k/uL (3.8-10.6)
[2018-12-16 05:52] LABS: Calcium 8.5 mg/dL (8.4-10.2); Magnesium 1.9 mg/dL (1.6-2.3); Potassium 2.9 mmol/L (3.5-5.1)
[2018-12-16] MEDS ORDERED: Potassium Replacement Protocol 1 EACH MISC MISCELLANE PRN (06:10)
[2018-12-16] MEDS: INSULIN ASPART (NovoLOG) 100 UNIT/ML VIAL SQ SCH ×4 (06:21→21:01)
[2018-12-16] MEDS: DOCUSATE 100 MG CAP PO SCH (06:22)
[2018-12-16 06:23] LABS: Prothrombin Time 68.2 sec (9.0-12.0)
[2018-12-16 06:28] LABS: Glucose,Whole Blood 102 mg/dL (75-99)
[2018-12-16] MEDS: POTASSIUM CHLORIDE ER 20 MEQ TAB.ER PO SCH ×3 (06:33→12:03)
[2018-12-16] MEDS ORDERED: PHYTONADIONE ORAL 5 MG/5 ML ORAL.SYRG PO STA (07:03)
--- NOTE | 2018-12-16 08:23 | P.PN ---
Progress Note - Text The patient is a 60-year-old female who presented 2 days ago from the emergency room with weakness and shortness of breath and recurrent nausea and vomiting. Patient was found to be somewhat dehydrated with prerenal azotemia and acute on chronic renal failure. Patient also had atrial fibrillation with a rapid ventricular response. During the night the patient has had bowel movements. She actually slipped and fell while getting up out of bed. Presently she states she feels better. She denies any unusual shortness of breath. Her nausea has improved and no vomiting. She has had several bowel movements. Vital signs show a temperature of 97.4 with a pulse of 104 slightly irregular. Respiratory rate of 19 blood pressure was 99/64 and she was 96% saturated on room air. Lung and heart exam was clear. Slightly tachycardic. Abdomen is obese but nontender. No edema. She is alert presently. No cranial or peripheral deficits. Laboratory White count is 16,000 with a hemoglobin 11.1 and platelet count of 284 neutrophils are 12.8. INR is elevated to 7.0 despite holding Coumadin. Sodium is 131 with a potassium 2.9. BUN is 65 and creatinine has risen to 4.74. Her blood sugar was 65 and 102 this morning. Calcium and magnesium were normal. Blood culture from the eighth is no growth. Impressions and plans The patient this morning clinically appears to be doing better but several concerns on her lab tests reveal further acute on chronic renal failure despite fluid supplementation and also elevation of her INR and white count despite no obvious signs of overt infection. The patient will be given oral vitamin K. Continue to hold her CA inhibitor. We will increase her diet to more of a regular diet as tolerated. Follow-up basic metabolic panel and INR to be done. We'll wait for further recommendations from cardiology and nephrology. Discussed with patient and nursing staff this morning.
--- NOTE | 2018-12-16 10:10 | P.PN ---
Subjective Patient is seen in follow-up for acute kidney injury. Creatinine in 2013 was in the range of 1-1.1. On 11/27/2018 creatinine was 1.9. Renal function this admission and is worsening with creatinine up to 4.74 today. Patient sustained a fall last night after she lost her balance. She presented with intractable vomiting going on for the last 4 days. Last night she developed significant amount of diarrhea after she was given Dulcolax. She has been voiding. She is awake and alert. Vital signs are stable. General: The patient appeared well nourished and normally developed. HEENT: Head exam is unremarkable. Neck is without jugular venous distension. LUNGS: Lungs are clear to auscultation and percussion. Breath sounds decreased. HEART: Rate and Rhythm are regular. First and second heart sounds normal. No murmurs, rubs or gallops. ABDOMEN: Abdominal exam reveals normal bowel sounds. Non-tender and non- distended. No evidence of peritonitis. EXTREMITITES: No clubbing, cyanosis, or edema. Objective - Vital Signs Vital signs: Vital Signs Temp 97.4 F L 12/16/18 03:35 Pulse 104 H 12/16/18 04:00 Resp 19 12/16/18 04:00 BP 99/64 12/16/18 03:35 Pulse Ox 96 12/16/18 03:35 Intake & Output 12/15/18 12/16/18 12/16/18 18:59 06:59 18:59 Intake Total 2215 1280 360 Balance 2215 1280 360 Weight 106.9 kg 108.6 kg Intake: IV 10 Invasive Line 1 10 Intake, IV Titration 825 800 Amount 0.9% NaCl with KCl 20 Meq 225 /l 1,000 ml @ 75 mls/hr IV .[id number] [facility] Rx#: [id number] Sodium Chloride 0.9% 1, 600 800 000 ml @ 100 mls/hr IV . Q10H [facility] Rx#:[id number] Oral 1380 480 360 Other: Voiding Method Toilet Toilet # Voids 1 5 # Bowel Movements 5 - Labs CBC & Chem 7: 12/16/18 04:33 12/16/18 04:33 Labs: Abnormal Lab Results - Last 24 Hours (Table) 12/15/18 12/15/18 12/15/18 Range/Units 11:27 17:00 20:33 WBC (3.8-10.6) k/uL Hgb (11.4-16.0) gm/dL RDW (11.5-15.5) % Neutrophils # (1.3-7.7) k/uL PT (9.0-12.0) sec INR (<1.2) Sodium (137-145) mmol/L Potassium (3.5-5.1) mmol/L Chloride (98-107) mmol/L BUN (7-17) mg/dL Creatinine (0.52-1.04) mg/dL Glucose (74-99) mg/dL POC Glucose (mg/dL) 259 H 173 H 115 H (75-99) mg/dL 12/16/18 12/16/18 12/16/18 Range/Units 03:51 04:07 04:33 WBC (3.8-10.6) k/uL Hgb (11.4-16.0) gm/dL RDW (11.5-15.5) % Neutrophils # (1.3-7.7) k/uL PT 68.2 H (9.0-12.0) sec INR 7.0 H* (<1.2) Sodium (137-145) mmol/L Potassium (3.5-5.1) mmol/L Chloride (98-107) mmol/L BUN (7-17) mg/dL Creatinine (0.52-1.04) mg/dL Glucose (74-99) mg/dL POC Glucose (mg/dL) 65 L 72 L (75-99) mg/dL 12/16/18 12/16/18 12/16/18 Range/Units 04:33 04:33 06:08 WBC 16.4 H (3.8-10.6) k/uL Hgb 11.1 L (11.4-16.0) gm/dL RDW 16.9 H (11.5-15.5) % Neutrophils # 12.8 H (1.3-7.7) k/uL PT (9.0-12.0) sec INR (<1.2) Sodium 131 L (137-145) mmol/L Potassium 2.9 L (3.5-5.1) mmol/L Chloride 89 L (98-107) mmol/L BUN 65 H (7-17) mg/dL Creatinine 4.74 H (0.52-1.04) mg/dL Glucose 65 L (74-99) mg/dL POC Glucose (mg/dL) 102 H (75-99) mg/dL Microbiology - Last 24 Hours (Table) 12/14/18 16:23 Blood Culture - Preliminary Blood No Growth after 24 hours Assessment and Plan Plan: Assessment: 1. Acute kidney injury secondary to ATN secondary to intravascular volume depletion from vomiting, diarrhea, diuretics and lisinopril. Creatinine up to 4.74 today. Urinalysis is benign. No evidence of urinary retention. No hydronephrosis noted on renal ultrasound. However the left kidney is atrophied. 2. Rule out chronic kidney disease. Last month her creatinine was near 1.8. Prior to that it was 1-1.1 in 2013. 3. Hyponatremia secondary to acute kidney injury. 4. Systolic CHF with ejection fraction of 40-45% with moderate pulmonary hypertension. Compensated. 5. Hypokalemia secondary to GI losses and poor oral intake. 6. Diabetes mellitus. 7. Atrial fibrillation with RVR. Maintained on Lopressor. 8. Vomiting. ? Diabetic gastroparesis versus infectious. Plan: Maintain normal saline at 100 mL an hour. Replace potassium. 60 mg once today. Strict I's and O's. Avoid nephrotoxins. Continue to hold lisinopril and diuretics. Repeat electrolytes in the morning. No urgent need for renal replacement therapy at this time. Continue to assess on day-to-day basis.
[2018-12-16] MEDS: FAMOTIDINE 20 MG TAB PO SCH ×2 (10:45→20:13)
[2018-12-16] MEDS: PARoxetine 20 MG TAB PO SCH (10:46)
[2018-12-16] MEDS: METOPROLOL TARTRATE 50 MG TAB PO SCH ×3 (10:46→20:13)
[2018-12-16] MEDS: SODIUM CHLORIDE 0.9% 1,000 ML IV SCH ×3 (10:47→20:14)
--- NOTE | 2018-12-16 11:43 | PN ---
PROGRESS NOTE DATE OF SERVICE: December 16, 2018 Patient is a 68-year-old pleasant white female admitted to the hospital with nausea, vomiting for the last 1 week duration. She was just discharged home from the hospital with antibiotics for a prior hospitalization for pneumonia, which she took until . She was admitted to hospital with multiple episodes of nausea, vomiting. Today she is feeling much better. The nausea has resolved. No further episodes of emesis. However, last night she felt constipated and got a couple of tablets of Dulcolax suppository and since then she had severe diarrhea all through the night and she went at least 10 times. For the last 2 hours, she is feeling better. She had small amount of bloody streaks in the bowel movements. She denies any abdominal pain. On a clear liquid diet, tolerating well. PHYSICAL EXAMINATION: She appears comfortable. No apparent distress. VITAL SIGNS: Stable. Blood pressure is 199/64, pulse rate 114, temperature 97.4. HEENT examination unremarkable. Conjunctivae pink. Sclerae anicteric. Oral cavity no lesions. Neck no jugular venous distention or lymph node enlargement. Chest was clear to auscultation. HEART: Regular rate and rhythm. ABDOMEN: Soft, it was obese but was nontender. Bowel sounds are positive. No organomegaly. Extremities: No pedal edema. Skin no rashes. NEUROLOGIC: Alert and oriented x3. No focal deficits. LABS: WBC 16.4, hemoglobin 11.1, platelets are normal. INR is 7. BUN is 65, creatinine 4.74. IMPRESSION: 1. Acute onset of nausea, vomiting for the last 1 week duration. Most likely medication-related side effects. Her symptoms are gradually improving. In fact, she has not had any emesis for the last 24 hours on Protonix and antiemetics and doing well on a clear liquid diet, currently tolerating well. 2. Episodes of severe diarrhea all through the night following Dulcolax suppository which appears to be resolving. She had small amount of blood streaks in the bowel movements also, hemoglobin is stable. 3. Acute kidney injury, probably prerenal azotemia. Nephrology following the patient closely. RECOMMENDATIONS: 1. Advance diet as tolerated. 2. Continue with Protonix and antiemetics. 3. Since her upper gastrointestinal symptoms are improving, I will hold off on any endoscopy intervention at the present time. 4. In regards to the diarrhea, we will continue to watch it closely and avoid laxatives at this time. Thank you for this consultation. MMKRISTINEL / IJN: [id number] /
[2018-12-16 12:01] LABS: Glucose,Whole Blood 78 mg/dL (75-99)
[2018-12-16] MEDS: HYDROcodone/APAP 5-325MG 1 EACH TAB PO PRN ×2 (12:42→20:13)
--- NOTE | 2018-12-16 13:02 | P.PN ---
Subjective Progress Note Date: 12/16/18 This is a pleasant 68-year-old female patient with known history of coronary artery disease, prior coronary artery bypass grafting surgery, diabetes, hypertension, hyperlipidemia, paroxysmal atrial fibrillation for which she takes Coumadin and recent admission for diastolic congestive heart failure. She presents this admission because of complaints of generalized weakness and fatigue as well as some nausea and vomiting. Upon admission she was found to be in atrial flutter with rapid ventricular response. The trachea values show a white blood cell count of 14,000, INR 5.5, sodium 129, potassium 3.2, BUN of 56 and creatinine of 2.22 with a troponin of 0.027 and an NT proBNP which is normal at 506, this was elevated at 2800 during previous admission. Laboratory values this morning showed a sodium of 132, potassium 3.5, BUN of 59 and creatinine of 3.42. Patient did have some issues with nausea and vomiting through the night but is feeling a bit better this morning. She remains in atrial flutter with a heart rate of 1 teens to 120s. Blood pressure is running borderline low through the night and this morning. Chest xray on admission showed no acute process. KUB x-ray showed no acute radiographic process. Nephrology has been consulted and IV fluids have been increased to 200 mL an hour. Lisinopril and diuretics have been placed on hold. 12/16/18 The patient was seen and examined today. Overall she verbalizes feeling quite a bit better. Apparently she was given a laxative last night and had multiple loose stools. INR remained elevated at 7.0 with no signs of bleeding. Hemoglobin is stable at 11.1 compared to 11.8 yesterday. Potassium this morning was 2.9 replacement has been ordered by nephrology. BUN and creatinine are worse today at 65 and 4.74. Lisinopril and diuretics continued be on hold. She is currently getting IV fluids at 100 miles per hour. Objective - Vital Signs Vital signs: Vital Signs Temp 97.4 F L 12/16/18 03:35 Pulse 104 H 12/16/18 04:00 Resp 19 12/16/18 04:00 BP 99/64 12/16/18 03:35 Pulse Ox 96 12/16/18 03:35 Intake & Output 12/15/18 12/16/18 12/16/18 18:59 06:59 18:59 Intake Total 2215 1280 610 Balance 2215 1280 610 Weight 106.9 kg 108.6 kg Intake: IV 10 Invasive Line 1 10 Intake, IV Titration 825 800 Amount 0.9% NaCl with KCl 20 Meq 225 /l 1,000 ml @ 75 mls/hr IV .[id number] [facility] Rx#: [id number] Sodium Chloride 0.9% 1, 600 800 000 ml @ 200 mls/hr IV . Q5H [facility] Rx#:[id number] Oral 1380 480 610 Other: Voiding Method Toilet Toilet # Voids 1 5 1 # Bowel Movements 5 - Exam PHYSICAL EXAMINATION: HEENT: Head is atraumatic, normocephalic. Pupils equal, round. Neck is supple. There is no elevated jugular venous pressure. HEART EXAMINATION: Heart sounds irregularly irregular, S1 and S2 normal. No murmur or gallop heard. CHEST EXAMINATION: Lungs are clear to auscultation and precussion. No chest wall tenderness is noted on palpation or with deep breathing. ABDOMEN: Soft, obese, nontender. Bowel sounds are heard. No organomegaly noted. EXTREMITIES: 2+ peripheral pulses with no evidence of peripheral edema and no calf tenderness noted. NEUROLOGIC patient is awake, alert and oriented x3. - Labs CBC & Chem 7: 12/16/18 04:33 12/16/18 04:33 Labs: Abnormal Lab Results - Last 24 Hours (Table) 12/15/18 12/15/18 12/16/18 Range/Units 17:00 20:33 03:51 WBC (3.8-10.6) k/uL Hgb (11.4-16.0) gm/dL RDW (11.5-15.5) % Neutrophils # (1.3-7.7) k/uL PT (9.0-12.0) sec INR (<1.2) Sodium (137-145) mmol/L Potassium (3.5-5.1) mmol/L Chloride (98-107) mmol/L BUN (7-17) mg/dL Creatinine (0.52-1.04) mg/dL Glucose (74-99) mg/dL POC Glucose (mg/dL) 173 H 115 H 65 L (75-99) mg/dL 02/10/19 02/10/19 02/10/19 Range/Units 04:07 04:33 04:33 WBC (3.8-10.6) k/uL Hgb (11.4-16.0) gm/dL RDW (11.5-15.5) % Neutrophils # (1.3-7.7) k/uL PT 68.2 H (9.0-12.0) sec INR 7.0 H* (<1.2) Sodium 131 L (137-145) mmol/L Potassium 2.9 L (3.5-5.1) mmol/L Chloride 89 L (98-107) mmol/L BUN 65 H (7-17) mg/dL Creatinine 4.74 H (0.52-1.04) mg/dL Glucose 65 L (74-99) mg/dL POC Glucose (mg/dL) 72 L (75-99) mg/dL 12/16/18 12/16/18 Range/Units 04:33 06:08 WBC 16.4 H (3.8-10.6) k/uL Hgb 11.1 L (11.4-16.0) gm/dL RDW 16.9 H (11.5-15.5) % Neutrophils # 12.8 H (1.3-7.7) k/uL PT (9.0-12.0) sec INR (<1.2) Sodium (137-145) mmol/L Potassium (3.5-5.1) mmol/L Chloride (98-107) mmol/L BUN (7-17) mg/dL Creatinine (0.52-1.04) mg/dL Glucose (74-99) mg/dL POC Glucose (mg/dL) 102 H (75-99) mg/dL Microbiology - Last 24 Hours (Table) 12/14/18 16:23 Blood Culture - Preliminary Blood No Growth after 24 hours Assessment and Plan Assessment: #1 typical atrial flutter with rapid ventricular response #2 acute kidney injury secondary to nausea, vomiting, dehydration #3 chronic diastolic congestive heart failure #4 history of CAD with prior bypass surgery #5 hypertension with episodes of hypotension #6 diabetes #7 hyperlipidemia Plan: From cardiology's perspective, the conditions were reviewed and we will continue the same. Continue with IV fluids. Continue to monitor the patient's renal function and electrolytes. Watch her closely for fluid overload due to history of diastolic congestive heart failure. Hold Coumadin for now and monitor PT with INR. We will continue to follow the patient and provide further recommendations accordingly. TRAINING DESIGNER note has been reviewed, I agree with a documented findings and plan of care. Patient was seen and examined.
[2018-12-16 17:26] LABS: Glucose,Whole Blood 128 mg/dL (75-99)
[2018-12-16 18:05] LABS: Potassium 3.6 mmol/L (3.5-5.1)
[2018-12-16] MEDS: ALPRAZolam 0.5 MG TAB PO PRN (20:13)
[2018-12-16] MEDS: AMITRIPTYLINE HCL 10 MG TAB PO SCH (20:14)
[2018-12-16] MEDS: ATORVASTATIN 40 MG TAB PO SCH (20:14)
[2018-12-16 20:50] LABS: Glucose,Whole Blood 180 mg/dL (75-99)
[2018-12-16] MEDS: INSULIN DETEMIR (LEVEMIR) 100 UNIT/ML SYR SQ SCH (21:02)
[2018-12-17 04:49] LABS: Glucose,Whole Blood 70 mg/dL (75-99)
[2018-12-17 04:49] LABS: Glucose,Whole Blood 44 mg/dL (75-99)
[2018-12-17 04:49] LABS: Glucose,Whole Blood 65 mg/dL (75-99)
[2018-12-17 06:07] LABS: Glucose,Whole Blood 110 mg/dL (75-99)
[2018-12-17] MEDS: INSULIN ASPART (NovoLOG) 100 UNIT/ML VIAL SQ SCH ×4 (06:13→21:40)
[2018-12-17 06:30] LABS: INR 1.6 (<1.2); Prothrombin Time 15.8 sec (9.0-12.0)
[2018-12-17 06:36] LABS: Calcium 7.7 mg/dL (8.4-10.2); Potassium 3.2 mmol/L (3.5-5.1)
[2018-12-17] MEDS ORDERED: POTASSIUM CHLORIDE ER 20 MEQ TAB.ER PO STA (07:47)
--- NOTE | 2018-12-17 07:50 | P.PN ---
Progress Note - Text The patient is a 68-year-old female presented 3 days previous to emergency room with weakness and shortness of breath. She had recurrent nausea and vomiting. The patient was found to be dehydrated with prerenal azotemia and acute on chronic renal failure. She is also been found to be in atrial flutter with a rapid ventricular rate for which she was on Cardizem drip. This morning she states she feels better. She has not had further nausea or vomiting or diarrhea. She states she was walking in [place] yesterday with physical therapy. She did have a episode of low blood sugar early this morning. She is eating breakfast now and is alert and oriented. No chest pain. Vital signs show a temperature of 97.9 with a regular pulse around 101. Atrial flutter. Respiratory rate of 18. Blood pressure 112/82 and she is 98% saturated. Lung and heart examination is clear. No unusual edema. No focal neurological changes. Laboratory INR is 1.6. Patient had received vitamin K for an elevated INR of 7.0. Sodium is 131 with potassium 3.2. BUN and creatinine 57 and 3.4 given her GFR of 14. Creatinine is mildly improved. Blood sugar this morning is 72. Impressions and plans Atrial flutter with a rapid ventricular response. More controlled. Still a bit tachycardic. Acute on chronic renal failure from prerenal azotemia appears to show some modest improvement this morning. Hypercoagulopathy also appears improved. Gastroparesis with nausea and vomiting seems to be clinically improving. Hypoglycemia. Will adjust Levemir insulin down to 26 units. Weight for further recommendations from cardiology. Also await further recommendation from nephrology. One dose of potassium was ordered as she is somewhat low this morning. Basic metabolic panels ordered. Coumadin 4 mg 1 today with follow-up INRs. Levemir insulin also decreased. Continue with physical therapy.
[2018-12-17] MEDS: SODIUM CHLORIDE 0.9% 1,000 ML IV SCH ×4 (08:53→22:37)
[2018-12-17] MEDS: DOCUSATE 100 MG CAP PO SCH (08:54)
[2018-12-17] MEDS: PARoxetine 20 MG TAB PO SCH (08:54)
[2018-12-17] MEDS: FAMOTIDINE 20 MG TAB PO SCH (08:54)
[2018-12-17] MEDS: METOPROLOL TARTRATE 50 MG TAB PO SCH ×3 (08:54→21:43)
[2018-12-17 11:24] LABS: Glucose,Whole Blood 138 mg/dL (75-99)
--- NOTE | 2018-12-17 11:27 | CDI ---
Documentation Clarification Form Date: 12/17/2018 11:14:37 AM From: Alyce DALY Gutierrez, CCDS Admit Date: 12/14/2018 5:55:00 PM Patient Name: Danyelle Bocanegra Visit Number: [id number] Discharge Date: ATTENTION: The Clinical Documentation Specialists (CDI) and [facility] Coding Staff appreciate your assistance in clarifying documentation. Please respond to the clarification below the line at the bottom and electronically sign. The CDI & [facility] Coding staff will review the response and follow-up if needed. Please note: Queries are made part of the Legal Health Record. If you have any questions, please contact the author of this message via ITS. Dr. Dawit Frias: There is conflicting documentation in the record regarding the type of congestive heart failure the patient is being treated/monitored for. Per the attending H/P & subsequent progress notes: "The patient was hospitalized last month with left lower lobe pneumonia and atrial fibrillation with rapid ventricular response and acute on chronic congestive heart failure, systolic congestive heart failure. She has chronic systolic congestive heart failure with ejection fraction of 40% to 45%." Per the cardiology consult & subsequent progress notes: "...recent admission for diastolic congestive heart failure. Assessment: ... #3 chronic diastolic congestive heart failure History/Risk Factors: CHF, CAD w/previous CABG, Hypertension, DM II, CKD stage III-IV, recent admit with pneumonia & exacerbation of CHF (documented as systolic). Clinical Indicators: Presented with SOB, nausea & vomiting. Admitted with typical atrial flutter possible due to diuretics, Acute renal failure w/ATN & dehydration. VS: P 125%, R 24, PO 98 2Lnc BNP: 506 Echocardiogram Results 11/26/18: Left ventricular systolic function mild- moderately impaired with EF between 40-45%. Mild MR, mild TR, moderate pulmonary hypertension. Chest X Ray: no acute process. Treatment: IV Cardizem drip, IV Kcl, IV Ms, IV fluid rate 75, IV Insulin, IV Zofran, IV Reglan. In your professional opinion, can you please clarify the type of CHF if known? Systolic Heart Failure Diastolic Heart Failure: Systolic & Diastolic Heart Failure: Unable to Determine Other, please specify (Last Revision: February 2018) acute on chronic systolic and diastolic CHF. JENNIE. RRD_ MTDD
[2018-12-17] MEDS: HYDROcodone/APAP 5-325MG 1 EACH TAB PO PRN ×2 (12:36→19:31)
[2018-12-17] MEDS: ALPRAZolam 0.5 MG TAB PO PRN (12:36)
--- NOTE | 2018-12-17 14:54 | P.PN ---
Subjective Progress Note Date: 12/17/18 This is a pleasant 68-year-old female patient with known history of coronary artery disease, prior coronary artery bypass grafting surgery, diabetes, hypertension, hyperlipidemia, paroxysmal atrial fibrillation for which she takes Coumadin and recent admission for diastolic congestive heart failure. She presents this admission because of complaints of generalized weakness and fatigue as well as some nausea and vomiting. Patient was seen and examined this morning, sitting up in the chair at bedside. Overall she feels well, she states she did not have a very good night last night because of several episodes of diarrhea. She denies any palpitations, no chest discomfort. Hemodynamically she is stable. I pressure 112/80 with a heart rate in the 100, 98% on room air. INR today is 1.6, sodium 132, potassium 3.2, BUN 57 and creatinine 3.3. Objective - Vital Signs Vital signs: Vital Signs Temp 98.1 F 12/17/18 08:00 Pulse 94 12/17/18 08:00 Resp 18 12/17/18 04:00 BP 84/56 12/17/18 08:00 Pulse Ox 94 L 12/17/18 08:00 Intake & Output 12/16/18 12/17/18 12/17/18 18:59 06:59 18:59 Intake Total 2190 400 400 Output Total 1800 Balance 2190 -1400 400 Intake: Intake, IV Titration 1100 400 Amount Sodium Chloride 0.9% 1, 500 400 000 ml @ 100 mls/hr IV . Q10H [facility] Rx#:[id number] Sodium Chloride 0.9% 1, 600 000 ml @ 200 mls/hr IV . Q5H [facility] Rx#:[id number] Oral 1090 400 Output: Urine 1800 Uretheral (Licea) 900 Other: Voiding Method Toilet Toilet # Voids 1 1 # Bowel Movements 1 - Exam PHYSICAL EXAMINATION: HEENT: Head is atraumatic, normocephalic. Pupils equal, round. Neck is supple. There is no elevated jugular venous pressure. HEART EXAMINATION: Heart sounds irregularly irregular, S1 and S2 normal. No murmur or gallop heard. CHEST EXAMINATION: Lungs are clear to auscultation and precussion. No chest wall tenderness is noted on palpation or with deep breathing. ABDOMEN: Soft, obese, nontender. Bowel sounds are heard. No organomegaly noted. EXTREMITIES: 2+ peripheral pulses with no evidence of peripheral edema and no calf tenderness noted. NEUROLOGIC patient is awake, alert and oriented x3. - Labs CBC & Chem 7: 12/16/18 04:33 12/17/18 05:54 Labs: Abnormal Lab Results - Last 24 Hours (Table) 12/16/18 12/16/18 12/16/18 Range/Units 16:11 17:23 20:47 PT (9.0-12.0) sec INR (<1.2) Sodium 131 L (137-145) mmol/L Potassium (3.5-5.1) mmol/L Chloride 93 L (98-107) mmol/L BUN 63 H (7-17) mg/dL Creatinine 3.97 H (0.52-1.04) mg/dL Glucose 135 H (74-99) mg/dL POC Glucose (mg/dL) 128 H 180 H (75-99) mg/dL Calcium 8.0 L (8.4-10.2) mg/dL 12/17/18 12/17/18 12/17/18 Range/Units 03:51 04:10 04:27 PT (9.0-12.0) sec INR (<1.2) Sodium (137-145) mmol/L Potassium (3.5-5.1) mmol/L Chloride (98-107) mmol/L BUN (7-17) mg/dL Creatinine (0.52-1.04) mg/dL Glucose (74-99) mg/dL POC Glucose (mg/dL) 44 L 65 L 70 L (75-99) mg/dL Calcium (8.4-10.2) mg/dL 12/17/18 12/17/18 12/17/18 Range/Units 05:54 05:54 06:06 PT 15.8 H (9.0-12.0) sec INR 1.6 H (<1.2) Sodium 131 L (137-145) mmol/L Potassium 3.2 L (3.5-5.1) mmol/L Chloride (98-107) mmol/L BUN 57 H (7-17) mg/dL Creatinine 3.34 H (0.52-1.04) mg/dL Glucose 72 L (74-99) mg/dL POC Glucose (mg/dL) 110 H (75-99) mg/dL Calcium 7.7 L (8.4-10.2) mg/dL 12/17/18 Range/Units 11:23 PT (9.0-12.0) sec INR (<1.2) Sodium (137-145) mmol/L Potassium (3.5-5.1) mmol/L Chloride (98-107) mmol/L BUN (7-17) mg/dL Creatinine (0.52-1.04) mg/dL Glucose (74-99) mg/dL POC Glucose (mg/dL) 138 H (75-99) mg/dL Calcium (8.4-10.2) mg/dL Microbiology - Last 24 Hours (Table) 12/14/18 16:23 Blood Culture - Preliminary Blood No Growth after 48 hours Assessment and Plan Plan: Assessment: #1 typical atrial flutter with rapid ventricular response #2 acute kidney injury secondary to nausea, vomiting, dehydration #3 chronic diastolic congestive heart failure #4 history of CAD with prior bypass surgery #5 hypertension with episodes of hypotension #6 diabetes #7 hyperlipidemia Plan From cardiology's perspective, we'll recommend to continue the patient on her current medications. We will discontinue the Licea catheter. Continue to follow. DNP note has been reviewed, I agree with a documented findings and plan of care. Patient was seen and examined.
--- NOTE | 2018-12-17 15:46 | PN ---
PROGRESS NOTE Patient is seen for followup of acute kidney injury. She was admitted with a serum creatinine of about 2.2, which peaked to 4.7 and started to decrease now. Creatinine is down to 3.3. Patient has had good urine output. She is voiding. The patient is maintained on IV fluids. She denies any chest pain, shortness of breath, nausea, or vomiting. There is no evidence of hydronephrosis on the ultrasound. The left kidney is atrophic at 6.6 cm and right kidney is 10 cm. PHYSICAL EXAMINATION: On examination today, blood pressure was 112/82, heart rate of 101 per minute. Patient is afebrile. Examination of the heart S1, S2. Examination lungs bilateral breath sounds are heard. Decreased breath sounds at bases. Abdomen is soft, nontender. Examination lower extremities shows edema trace bilaterally. MINER OPERATOR exam is grossly intact. LABS: Show sodium 131, potassium 3.2, BUN 57, serum creatinine 3.34, calcium 7.7. ASSESSMENT: 1. Acute kidney injury secondary to hypotension hypoperfusion currently nonoliguric and improving. 2. Nausea and vomiting, currently improved. 3. Hyponatremia, hypovolemic, associated acute kidney injury, currently improved. 4. History of cardiomyopathy, ejection fraction 40 to 45%. 5. Moderate pulmonary hypertension. 6. Hypokalemia secondary to gastrointestinal fluid loss and decreased oral intake. We will continue to replace. 7. Atrial fibrillation with a RVR, currently improved. PLAN: Continue with IV fluids. Continue to hold off on CA inhibitors. Repeat labs in a.m. The patient is reassured regarding her renal function. She does not need any renal replacement therapy. MMODL / IJN: [id number] /
[2018-12-17 16:43] LABS: Glucose,Whole Blood 235 mg/dL (75-99)
[2018-12-17] MEDS ORDERED: WARFARIN 3 MG TAB PO ONE (18:00)
[2018-12-17] MEDS: AMITRIPTYLINE HCL 10 MG TAB PO SCH (19:31)
[2018-12-17] MEDS: ATORVASTATIN 40 MG TAB PO SCH (19:31)
[2018-12-17 20:56] LABS: Glucose,Whole Blood 219 mg/dL (75-99)
[2018-12-17] MEDS ORDERED: INSULIN DETEMIR (LEVEMIR) 100 UNIT/ML SYR SQ SCH (21:00)
[2018-12-17] MEDS: POTASSIUM CHLORIDE ER 20 MEQ TAB.ER PO SCH ×2 (21:43→22:37)
--- NOTE | 2018-12-17 22:13 | P.PN ---
Subjective Progress Note Date: 12/17/18 Principal diagnosis: Nausea and vomiting, constipation, diarrhea Patient reporting that nausea has resolved. Tolerating diet. Bowel movements improving with 3 loose bowel movements this morning with only small amounts of blood seen. Objective - Vital Signs Vital signs: Vital Signs Temp 98.1 F 12/17/18 19:33 Pulse 97 12/17/18 19:33 Resp 18 12/17/18 19:33 BP 91/51 12/17/18 19:33 Pulse Ox 95 12/17/18 19:33 Intake & Output 12/17/18 12/17/18 12/18/18 06:59 18:59 06:59 Intake Total 400 1440 Output Total 1800 2000 Balance -1400 -560 Intake: Intake, IV Titration 400 800 Amount Sodium Chloride 0.9% 1, 400 800 000 ml @ 100 mls/hr IV . Q10H [facility] Rx#:[id number] Oral 640 Output: Urine 1800 2000 Uretheral ([place]) 900 Other: Voiding Method Toilet Toilet # Voids 1 # Bowel Movements 1 1 - Exam On physical examination, patient appears comfortable in no apparent distress. HEAD: Normocephalic, atraumatic. EYES: No scleral icterus. No conjunctival injection. MOUTH: No lesions, tongue midline. NECK: Trachea midline, no gross abnormalities. CHEST: Clear to auscultation with no wheezing or rhonchi appreciated. ABDOMEN: Soft, obese. Bowel sounds are positive. No organomegaly. No guarding or rigidity. EXTREMITIES: No pedal edema. SKIN: No rashes, no jaundice. NEUROLOGIC: Alert and oriented x3. No focal deficits. - Labs CBC & Chem 7: 12/16/18 04:33 12/17/18 05:54 Labs: Abnormal Lab Results - Last 24 Hours (Table) 12/17/18 12/17/18 12/17/18 Range/Units 03:51 04:10 04:27 PT (9.0-12.0) sec INR (<1.2) Sodium (137-145) mmol/L Potassium (3.5-5.1) mmol/L BUN (7-17) mg/dL Creatinine (0.52-1.04) mg/dL Glucose (74-99) mg/dL POC Glucose (mg/dL) 44 L 65 L 70 L (75-99) mg/dL Calcium (8.4-10.2) mg/dL 12/17/18 12/17/18 12/17/18 Range/Units 05:54 05:54 06:06 PT 15.8 H (9.0-12.0) sec INR 1.6 H (<1.2) Sodium 131 L (137-145) mmol/L Potassium 3.2 L (3.5-5.1) mmol/L BUN 57 H (7-17) mg/dL Creatinine 3.34 H (0.52-1.04) mg/dL Glucose 72 L (74-99) mg/dL POC Glucose (mg/dL) 110 H (75-99) mg/dL Calcium 7.7 L (8.4-10.2) mg/dL 12/17/18 12/17/18 12/17/18 Range/Units 11:23 16:41 20:55 PT (9.0-12.0) sec INR (<1.2) Sodium (137-145) mmol/L Potassium (3.5-5.1) mmol/L BUN (7-17) mg/dL Creatinine (0.52-1.04) mg/dL Glucose (74-99) mg/dL POC Glucose (mg/dL) 138 H 235 H 219 H (75-99) mg/dL Calcium (8.4-10.2) mg/dL Microbiology - Last 24 Hours (Table) 12/14/18 16:23 Blood Culture - Preliminary Blood No Growth after 72 hours Assessment and Plan (1) Nausea and vomiting Narrative/Plan: Unknown etiology with differential including medication related side effects, viral gastroenteritis, or other etiology. Currently improved with patient reporting no further symptoms and that she is tolerating her diet. Current Visit: Yes Status: Acute Code(s): R11.2 - NAUSEA WITH VOMITING, UNSPECIFIED SNOMED Code(s): 02227087 (2) Diarrhea Narrative/Plan: Likely laxative induced as this occurred after the patient had a Dulcolax suppository. Improving. Current Visit: Yes Status: Acute Code(s): R19.7 - DIARRHEA, UNSPECIFIED SNOMED Code(s): 35724849 Plan: Supportive care Okay for diet Continue antiemetics as needed and Pepcid therapy EIA a for C. diff noted and negative Avoid laxative therapy No plans for endoscopic evaluation at this time Continue to monitor stool output and symptoms Thank you for allowing us to participate in the care of the patient we will continue to follow
[2018-12-18 02:18] LABS: Glucose,Whole Blood 72 mg/dL (75-99)
[2018-12-18 05:52] LABS: Glucose,Whole Blood 48 mg/dL (75-99)
[2018-12-18 06:09] LABS: Glucose,Whole Blood 62 mg/dL (75-99)
[2018-12-18 06:29] LABS: Glucose,Whole Blood 100 mg/dL (75-99)
[2018-12-18] MEDS: INSULIN ASPART (NovoLOG) 100 UNIT/ML VIAL SQ SCH ×4 (06:40→20:54)
[2018-12-18 06:50] LABS: INR 1.1 (<1.2); Prothrombin Time 11.3 sec (9.0-12.0)
[2018-12-18 06:58] LABS: Anisocytosis Slight; Basophils % (A) 0 %; Eosinophils # (A) 0.3 k/uL (0-0.7); Eosinophils % (A) 3 %; HCT 29.8 % (34.0-46.0); Hypochromasia Slight; Lymphocytes # (A) 3.5 k/uL (1.0-4.8); Lymphocytes % (A) 32 %; MCH 27.3 pg (25.0-35.0); MCHC 31.5 g/dL (31.0-37.0); MCV 86.6 fL (80.0-100.0); Mean Platelet Volume 8.9; Monocytes # (A) 0.5 k/uL (0-1.0); Monocytes % (A) 4 %; Neutrophils # (A) 6.3 k/uL (1.3-7.7); Neutrophils % (A) 59 %; Platelet Count 236 k/uL (150-450); RBC 3.44 m/uL (3.80-5.40); RDW 17.2 % (11.5-15.5); WBC 10.7 k/uL (3.8-10.6)
[2018-12-18 06:59] LABS: Calcium 8.1 mg/dL (8.4-10.2)
[2018-12-18 07:03] LABS: HGB 9.4 gm/dL (11.4-16.0)
[2018-12-18] MEDS: METOPROLOL TARTRATE 50 MG TAB PO SCH ×3 (07:58→20:49)
[2018-12-18] MEDS: HYDROcodone/APAP 5-325MG 1 EACH TAB PO PRN (07:58)
[2018-12-18] MEDS: PARoxetine 20 MG TAB PO SCH (07:59)
[2018-12-18] MEDS: FAMOTIDINE 20 MG TAB PO SCH (07:59)
[2018-12-18] MEDS: DOCUSATE 100 MG CAP PO SCH (07:59)
--- NOTE | 2018-12-18 08:30 | P.PN ---
Progress Note - Text The patient is a 68-year-old female who 4 days previously presented to emergency with weakness and shortness of breath. Recurrent nausea and vomiting. The patient was found to be in acute on chronic renal failure with prerenal azotemia and also she was found to have atrial flutter with a rapid ventricular response. Heart rate seems to be doing better. States she was a little nauseated yesterday but did eat breakfast this morning. Denies any chest pain or unusual shortness of breath. She has had some diarrhea but that seems to be slowing down. Vital signs show a temperature of 97.6 with a pulse of 68-92 irregular. Respiratory rate of 18. Blood pressure 99/35 and she is 98% saturated on room air. Lung and heart exam was clear. Abdomen nontender. No rebound guarding or masses. No unusual edema. No focal neurological deficits. Laboratory White count is 10.7 with a hemoglobin 9.4 and a platelet count of 236. INR this morning is 1.1. Patient had been supratherapeutic and did receive some vitamin K. Sodium is 139 with a potassium of 4.0. CO2 content is 27. BUN is 50 with creatinine 2.5 for given her a GFR of 19. Blood sugar this morning dropped to 48. Patient has eaten breakfast. Impressions and plans Of renal failure continues to show improvement. Decreasing BUN and creatinine. Overall heart rate seems to be better controlled. We will decrease Levemir because of her low blood sugars. Coumadin will be continued now at 7.5 mg. Repeat basic medical follow-up panel and INR in the morning. Possible discharge over the next 24-48 hours if okay with consultants. Discussed with patient and nursing staff this morning.
[2018-12-18 11:19] VITALS: BMI 45.7
[2018-12-18 11:36] LABS: Glucose,Whole Blood 121 mg/dL (75-99)
--- NOTE | 2018-12-18 13:47 | P.PN ---
Subjective Progress Note Date: 12/18/18 This is a pleasant 68-year-old female patient with known history of coronary artery disease, prior coronary artery bypass grafting surgery, diabetes, hypertension, hyperlipidemia, paroxysmal atrial fibrillation for which she takes Coumadin and recent admission for diastolic congestive heart failure. She presents this admission because of complaints of generalized weakness and fatigue as well as some nausea and vomiting. Patient was seen and examined this morning, sitting up in the chair at bedside. Overall she feels well, she states she did not have a very good night last night because of several episodes of diarrhea. She denies any palpitations, no chest discomfort. Hemodynamically she is stable. I pressure 112/80 with a heart rate in the 100, 98% on room air. INR today is 1.6, sodium 132, potassium 3.2, BUN 57 and creatinine 3.3. 12/18/2018 Patient seen and examined this morning, continues to have some diarrhea. Overall she is doing better. Creatinine is improved today at 2.5, INR today is 1.1, blood pressure 110/60 and heart rate in the 70s. We will give her 7-1/2 mg of Coumadin today. Possible discharge home in 24 hours. Objective - Vital Signs Vital signs: Vital Signs Temp 98.0 F 12/18/18 11:41 Pulse 97 12/18/18 11:41 Resp 18 12/18/18 11:41 BP 132/68 12/18/18 11:41 Pulse Ox 99 12/18/18 11:41 Intake & Output 12/17/18 12/18/18 12/18/18 18:59 06:59 18:59 Intake Total 1440 700 100 Output Total 1999 1000 Balance -560 -300 100 Weight 113.4 kg 113.4 kg Intake: Intake, IV Titration 800 700 Amount Sodium Chloride 0.9% 1, 800 700 000 ml @ 60 mls/hr IV . [id number] [facility] Rx#:[id number] Oral 640 100 Output: Urine 1999 1000 Uretheral ([place]) 1000 Other: Voiding Method Toilet Toilet # Voids 1 1 # Bowel Movements 1 1 1 - Exam PHYSICAL EXAMINATION: HEENT: Head is atraumatic, normocephalic. Pupils equal, round. Neck is supple. There is no elevated jugular venous pressure. HEART EXAMINATION: Heart sounds irregularly irregular, S1 and S2 normal. No murmur or gallop heard. CHEST EXAMINATION: Lungs are clear to auscultation and precussion. No chest wall tenderness is noted on palpation or with deep breathing. ABDOMEN: Soft, obese, nontender. Bowel sounds are heard. No organomegaly noted. EXTREMITIES: 2+ peripheral pulses with no evidence of peripheral edema and no calf tenderness noted. NEUROLOGIC patient is awake, alert and oriented x3. - Labs CBC & Chem 7: 12/18/18 05:49 12/18/18 05:49 Labs: Abnormal Lab Results - Last 24 Hours (Table) 12/17/18 12/17/18 12/18/18 Range/Units 16:41 20:55 02:17 WBC (3.8-10.6) k/uL RBC (3.80-5.40) m/uL Hgb (11.4-16.0) gm/dL Hct (34.0-46.0) % RDW (11.5-15.5) % Chloride (98-107) mmol/L BUN (7-17) mg/dL Creatinine (0.52-1.04) mg/dL Glucose (74-99) mg/dL POC Glucose (mg/dL) 235 H 219 H 72 L (75-99) mg/dL Calcium (8.4-10.2) mg/dL 12/18/18 12/18/18 12/18/18 Range/Units 05:49 05:49 05:51 WBC 10.7 H (3.8-10.6) k/uL RBC 3.44 L (3.80-5.40) m/uL Hgb 9.4 L D (11.4-16.0) gm/dL Hct 29.8 L (34.0-46.0) % RDW 17.2 H (11.5-15.5) % Chloride 108 H (98-107) mmol/L BUN 50 H (7-17) mg/dL Creatinine 2.54 H (0.52-1.04) mg/dL Glucose 34 L* (74-99) mg/dL POC Glucose (mg/dL) 48 L (75-99) mg/dL Calcium 8.1 L (8.4-10.2) mg/dL 12/18/18 12/18/18 12/18/18 Range/Units 06:08 06:28 11:35 WBC (3.8-10.6) k/uL RBC (3.80-5.40) m/uL Hgb (11.4-16.0) gm/dL Hct (34.0-46.0) % RDW (11.5-15.5) % Chloride (98-107) mmol/L BUN (7-17) mg/dL Creatinine (0.52-1.04) mg/dL Glucose (74-99) mg/dL POC Glucose (mg/dL) 62 L 100 H 121 H (75-99) mg/dL Calcium (8.4-10.2) mg/dL Microbiology - Last 24 Hours (Table) 12/14/18 16:23 Blood Culture - Preliminary Blood No Growth after 72 hours Assessment and Plan Plan: Assessment: #1 typical atrial flutter with rapid ventricular response #2 acute kidney injury secondary to nausea, vomiting, dehydration #3 chronic diastolic congestive heart failure #4 history of CAD with prior bypass surgery #5 hypertension with episodes of hypotension #6 diabetes #7 hyperlipidemia Plan From cardiology's perspective, we'll recommend to continue the patient on her current medications. Continue to follow. DNP note has been reviewed, I agree with a documented findings and plan of care. Patient was seen and examined.
[2018-12-18] MEDS ORDERED: DICYCLOMINE 10 MG CAP PO PRN (14:19)
[2018-12-18] MEDS: SODIUM CHLORIDE 0.9% 1,000 ML IV SCH (15:28)
[2018-12-18 16:49] LABS: Glucose,Whole Blood 240 mg/dL (75-99)
[2018-12-18] MEDS ORDERED: WARFARIN 7.5 MG TAB PO ONE (18:00)
--- NOTE | 2018-12-18 19:39 | PN ---
PROGRESS NOTE Patient is seen for followup for acute kidney injury. Her renal function continues to improve. Serum creatinine is down to 2.5 from 4.74. Patient has had good urine output. She is maintained on IV fluids. At this time patient says she is trying to increase her oral intake. She denied any nausea. She did have some diarrhea; this was possibly related to the Dulcolax tablets that patient had taken. On exacerbation today, blood pressure was 132/68, heart rate 80 per minute. She is afebrile. EXAMINATION OF THE HEART: S1, S2. EXAMINATION OF LUNGS: Bilateral breath sounds are heard. ABDOMEN: Soft, obese. Examination of lower extremities shows trace edema bilaterally. PLASTIC PARTS FABRICATOR exam is grossly intact. Labs show sodium 139, potassium 4.0, BUN 50, serum creatinine 2.54, hemoglobin 9.4 g/dL. ASSESSMENT: 1. Acute kidney injury, currently improving, acute tubular necrosis, nonoliguric. Decrease IV fluids and continue to encourage increased oral intake. 2. Nausea and vomiting, slowly improving. 3. Hypovolemic hyponatremia, now improved. 4. Cardiomyopathy, ejection fraction 40% to 45%. 5. Moderate pulmonary hypertension. 6. Atrial fibrillation with rapid ventricular response, now with controlled ventricular response. PLAN: Decrease IV fluids. Continue to encourage increased oral intake. Repeat labs in a.m. Patient will need followup as outpatient. MMODL / IJN: [id number] /
[2018-12-18 20:36] LABS: Glucose,Whole Blood 165 mg/dL (75-99)
[2018-12-18] MEDS: AMITRIPTYLINE HCL 10 MG TAB PO SCH (20:49)
[2018-12-18] MEDS: ATORVASTATIN 40 MG TAB PO SCH (20:49)
[2018-12-18] MEDS ORDERED: INSULIN DETEMIR (LEVEMIR) 100 UNIT/ML SYR SQ SCH (21:00)
--- NOTE | 2018-12-18 21:49 | P.PN ---
Subjective Progress Note Date: 12/18/18 Principal diagnosis: Nausea and vomiting, constipation, diarrhea Patient reporting that nausea has resolved. Tolerating diet. She reports 4 loose bowel movements today with some blood noted, she reports that the loose stool is likely secondary to fruit juice which she drink during the night due to hypoglycemia and which she associates with loose stool. She is also reporting some abdominal cramping. Objective - Vital Signs Vital signs: Vital Signs Temp 97.6 F 12/18/18 20:06 Pulse 67 12/18/18 20:14 Resp 16 12/18/18 20:06 BP 118/49 12/18/18 20:06 Pulse Ox 94 L 12/18/18 15:42 Intake & Output 12/18/18 12/18/18 12/19/18 06:59 18:59 06:59 Intake Total 700 844 Output Total 1000 Balance -300 844 Weight 113.4 kg 113.4 kg Intake: Intake, IV Titration 700 Amount Sodium Chloride 0.9% 1, 700 000 ml @ 60 mls/hr IV . [id number] [facility] Rx#:[id number] Oral 844 Output: Urine 1000 Uretheral ([place]) 1000 Other: Voiding Method Toilet Toilet # Voids 1 2 # Bowel Movements 1 1 - Exam On physical examination, patient appears comfortable in no apparent distress. HEAD: Normocephalic, atraumatic. EYES: No scleral icterus. No conjunctival injection. MOUTH: No lesions, tongue midline. NECK: Trachea midline, no gross abnormalities. CHEST: Clear to auscultation with no wheezing or rhonchi appreciated. ABDOMEN: Soft, obese. Bowel sounds are positive. No organomegaly. No guarding or rigidity. EXTREMITIES: No pedal edema. SKIN: No rashes, no jaundice. NEUROLOGIC: Alert and oriented x3. No focal deficits. - Labs CBC & Chem 7: 12/18/18 05:49 12/18/18 05:49 Labs: Abnormal Lab Results - Last 24 Hours (Table) 12/18/18 12/18/18 12/18/18 Range/Units 02:17 05:49 05:49 WBC 10.7 H (3.8-10.6) k/uL RBC 3.44 L (3.80-5.40) m/uL Hgb 9.4 L D (11.4-16.0) gm/dL Hct 29.8 L (34.0-46.0) % RDW 17.2 H (11.5-15.5) % Chloride 108 H (98-107) mmol/L BUN 50 H (7-17) mg/dL Creatinine 2.54 H (0.52-1.04) mg/dL Glucose 34 L* (74-99) mg/dL POC Glucose (mg/dL) 72 L (75-99) mg/dL Calcium 8.1 L (8.4-10.2) mg/dL 12/18/18 12/18/18 12/18/18 Range/Units 05:51 06:08 06:28 WBC (3.8-10.6) k/uL RBC (3.80-5.40) m/uL Hgb (11.4-16.0) gm/dL Hct (34.0-46.0) % RDW (11.5-15.5) % Chloride (98-107) mmol/L BUN (7-17) mg/dL Creatinine (0.52-1.04) mg/dL Glucose (74-99) mg/dL POC Glucose (mg/dL) 48 L 62 L 100 H (75-99) mg/dL Calcium (8.4-10.2) mg/dL 12/18/18 12/18/18 12/18/18 Range/Units 11:35 16:47 20:33 WBC (3.8-10.6) k/uL RBC (3.80-5.40) m/uL Hgb (11.4-16.0) gm/dL Hct (34.0-46.0) % RDW (11.5-15.5) % Chloride (98-107) mmol/L BUN (7-17) mg/dL Creatinine (0.52-1.04) mg/dL Glucose (74-99) mg/dL POC Glucose (mg/dL) 121 H 240 H 165 H (75-99) mg/dL Calcium (8.4-10.2) mg/dL Microbiology - Last 24 Hours (Table) 12/14/18 16:23 Blood Culture - Preliminary Blood No Growth after 96 hours Assessment and Plan (1) Nausea and vomiting Narrative/Plan: Unknown etiology with differential including medication related side effects, viral gastroenteritis, or other etiology. Currently improved with patient reporting no further symptoms and that she is tolerating her diet. Current Visit: Yes Status: Acute Code(s): R11.2 - NAUSEA WITH VOMITING, UNSPECIFIED SNOMED Code(s): 40309485 (2) Diarrhea Narrative/Plan: Likely laxative induced as this occurred after the patient had a Dulcolax suppository. Improving. Current Visit: Yes Status: Acute Code(s): R19.7 - DIARRHEA, UNSPECIFIED SNOMED Code(s): 30256965 Plan: Supportive care Okay for diet Continue antiemetics as needed and Pepcid therapy EIA a for C. diff noted and negative Avoid laxative therapy Bentyl added as needed for abdominal pain No plans for endoscopic evaluation at this time Continue to monitor stool output and symptoms Thank you for allowing us to participate in the care of the patient we will continue to follow
[2018-12-19 02:28] LABS: Glucose,Whole Blood 201 mg/dL (75-99)
[2018-12-19 05:00] LABS: Glucose,Whole Blood 127 mg/dL (75-99)
[2018-12-19] MEDS: INSULIN ASPART (NovoLOG) 100 UNIT/ML VIAL SQ SCH ×2 (05:25→12:14)
[2018-12-19 05:54] LABS: Glucose,Whole Blood 108 mg/dL (75-99)
[2018-12-19 05:55] LABS: INR 1.3 (<1.2); Prothrombin Time 13.2 sec (9.0-12.0)
[2018-12-19 06:03] LABS: Calcium 8.5 mg/dL (8.4-10.2); Potassium 4.5 mmol/L (3.5-5.1)
[2018-12-19] MEDS: FAMOTIDINE 20 MG TAB PO SCH (08:05)
[2018-12-19] MEDS: PARoxetine 20 MG TAB PO SCH (08:05)
[2018-12-19] MEDS: DOCUSATE 100 MG CAP PO SCH (08:06)
[2018-12-19] MEDS: METOPROLOL TARTRATE 50 MG TAB PO SCH (08:06)
[2018-12-19 08:46] VITALS: BP 123/55; PULSE 110; RESP 18; TEMP 98.3
--- NOTE | 2018-12-19 08:48 | P.DS ---
Providers Date of admission: 12/14/18 17:55 Attending physician: Dawit Frias Consults: 12/14/18 20:29 Consult Physician Urgent Consulting Provider: Portillo Mora Consult Reason/Comments: atrial fib with RVR Do you want consulting provider notified?: Yes, Notify in am 12/14/18 20:31 Consult Physician Urgent Consulting Provider: Mando Marcano Consult Reason/Comments: N/V, gastoparesis Do you want consulting provider notified?: Yes, Notify in am 12/15/18 09:46 Consult Physician Urgent Consulting Provider: Linsey Alvarez Consult Reason/Comments: acute on chronic renal failure Do you want consulting provider notified?: Yes Primary care physician: Dawit Frias The patient is a 60-year-old female who presented to emergency room with weakness and repeat nausea or vomiting. Some shortness of breath. The patient was found to be in acute on chronic renal failure with prerenal azotemia and acute tubular necrosis. Secondary to dehydration hydration and hypovolemia related to her repetitive nausea and vomiting. The patient was found on admission to have a BUN of 56 with a creatinine of 2.2 which will continue to increase the next couple days after admission. Her white count was 13.8 with a hemoglobin 12.2 and a platelet count of 263. She did have electrolyte disturbances with hyponatremia 129 and hypokalemia of 3.2. Blood sugar also was increased at 439 despite using her insulin at home. Her urine looked fairly clear for infection. Blood cultures were negative. An chest x-ray did not show any definite pneumonia. IV fluids were given and nephrotoxic agents were withheld. This included her Blanco inhibitors and diuretics. Her BUN nick further to 65 with creatinine of 4.74 giving her GFR of only 9. But gradually levels improved with judicious hydration Labs this morning reveal a BUN of 34 with a creatinine of 1.76 given her GFR of 29. Patient also had some supratherapeutic INRs up to the 5 range. She did receive some vitamin K. INR today is 1.3. Also initially elevated blood sugars improved during her hospitalization. On presentation she was in atrial fibrillation/flutter with a rapid ventricular response which required IV Cardizem and this gradually improved. Patient was seen in consultation with gastroenterology, nephrology and cardiology and please refer to their notes. Ultrasound of the kidneys revealed an atrophic left kidney with chronic renal disease noted. No right-sided hydronephrosis or nephrolithiasis noted. Heart rate decreased during her hospitalization. An chest x-rays remained stable. Patient was seen by physical and occupational therapies. Her nausea and vomiting and diarrhea subsided. At this time plans are to discharge to home. Home medications Alprazolam 0.5 mg 3 times a day Elavil 10 mg at at bedtime Lipitor 40 mg daily Colace daily as a stool softener but hold if diarrhea Pepcid 20 mg daily Patient does take [place] 5-325 twice a day as needed for chronic pain of osteoarthritis Patient will resume her Toujeo insulin at 30 units daily and adjust upward depending on her home sugars. She is to resume her Coumadin 5 mg daily except for 2.5 on Wednesdays and Sundays. Patient will hold her enalapril, Lasix, aspirin and Actos. Although pending and further clinical response along with her blood pressure and fluid balance some may need to be reinstated as outpatient. She is to have follow-up basic metabolic panel, CBC, INR next week. Discharge diagnoses 1. Acute on chronic renal failure stage V with dehydration secondary to nausea and vomiting and acute tubular necrosis. 2. Electrolyte imbalance with hyponatremia and hypokalemia resolved 3. Coronary artery disease with bypass surgery in 2013 4. Acute gastroparesis with repetitive nausea and vomiting associated with the dehydration and hypovolemia 5. Chronic systolic congestive heart failure with previous ejection fraction of 40-45% 6. Type 2 diabetes with hyperglycemia 7. Hypertension 8. Obesity 9. Hyperlipidemia 10. Paroxysmal atrial fibrillation and atrial flutter on Coumadin 11. History of anxiety and depression 12. Chronic pain syndrome with osteoarthritis of back and knees for which she requires chronic [place]. She is to follow a diabetic diet. Activities as tolerated. Follow-up in the office in 5-7 days. Follow-up with nephrology, cardiology. Home nursing follow-up recommended to make sure patient is taken all her medications properly and monitor weights and fluid balance. Notify office if any significant changes. Patient Condition at Discharge: Stable Plan - Discharge Summary Discharge Rx Participant: Yes New Discharge Prescriptions: No Action Famotidine [Pepcid] 20 mg PO BID ALPRAZolam [Xanax] 0.5 mg PO TID PRN PRN Reason: Anxiety Docusate [Colace] 100 mg PO DAILY #30 cap Enalapril [Vasotec] 10 mg PO BID #60 tab Potassium Chloride ER [K-Dur 10] 10 meq PO DAILY Warfarin [Coumadin] 5 mg PO DAILY PARoxetine [Paxil] 20 mg PO DAILY Amitriptyline HCl [Elavil] 10 mg PO HS Pioglitazone HCl [Actos] 15 mg PO DAILY Insulin Glargine,Hum.rec.anlog [uo Solostar] 70 units SQ DAILY Loperamide [Imodium] 2 mg PO Q8H Aspirin [[place] Aspirin EC] 81 mg PO DAILY HYDROcodone/APAP 5-325MG [[place] 5-325] 1 tab PO BID PRN PRN Reason: Pain Atorvastatin [Lipitor] 40 mg PO HS #30 tablet Metoprolol Tartrate [Lopressor] 50 mg PO TID #90 tab Furosemide [Lasix] 40 mg PO BID Discharge Medication List ALPRAZolam [Xanax] 0.5 mg PO TID PRN 03/06/14 [History] Famotidine [Pepcid] 20 mg PO BID 03/06/14 [History] Docusate [Colace] 100 mg PO DAILY #30 cap 03/10/14 [Rx] Enalapril [Vasotec] 10 mg PO BID #60 tab 03/10/14 [Rx] Amitriptyline HCl [Elavil] 10 mg PO HS 11/26/18 [History] Aspirin [[place] Aspirin EC] 81 mg PO DAILY 11/26/18 [History] HYDROcodone/APAP 5-325MG [[place] 5-325] 1 tab PO BID PRN 11/26/18 [History] Insulin Glargine,Hum.rec.anlog [Touje[place] Solostar] 70 units SQ DAILY 11/26/18 [ History] Loperamide [Imodium] 2 mg PO Q8H 11/26/18 [History] PARoxetine [Paxil] 20 mg PO DAILY 11/26/18 [History] Pioglitazone HCl [Actos] 15 mg PO DAILY 11/26/18 [History] Potassium Chloride ER [K-Dur 10] 10 meq PO DAILY 11/26/18 [History] Warfarin [Coumadin] 5 mg PO DAILY 11/26/18 [History] Atorvastatin [Lipitor] 40 mg PO HS #30 tablet 11/30/18 [Rx] Metoprolol Tartrate [Lopressor] 50 mg PO TID #90 tab 11/30/18 [Rx] Furosemide [Lasix] 40 mg PO BID 12/14/18 [History] Follow up Appointment(s)/Referral(s): [facility] [Provider Group] - 1 Week Dawit Frias MD [Primary Care Provider] - 1-2 days Bud Guidry DO [STAFF PHYSICIAN] - 1 Week Patient Instructions/Handouts: A-fib (Atrial Fibrillation) (DC), Dehydration ( DC), What to Do if Your Blood Sugar is Low (DC)
[2018-12-19 11:26] LABS: Glucose,Whole Blood 170 mg/dL (75-99)
--- NOTE | 2018-12-19 13:46 | PN ---
PROGRESS NOTE Patient is seen for followup for acute kidney injury. She is currently lying in bed, comfortable. Patient denies any significant complaints. She has no diarrhea and she is tolerating her oral intake fairly well. Renal function continues to improve. Serum creatinine is down to 1.76 today. PHYSICAL EXAMINATION: Blood pressure was 122/55, heart rate 110 per minute. Patient is afebrile. Examination of the heart, S1, S2. Examination of the lungs, bilateral breath sounds are heard. Abdomen is soft, nontender and obese. Examination of the lower extremities shows trace edema bilaterally. [employer] exam is grossly intact. LABS: Show sodium 140, potassium 4, chloride 112, BUN 34, serum creatinine 1.76. ASSESSMENT: 1. Acute kidney injury, acute tubular necrosis, currently significantly improved. Patient is stable for discharge from a nephrology standpoint. Follow up as outpatient in about 2 weeks' time. 2. Cardiomyopathy, ejection fraction 40%-45%. 3. Nausea and vomiting, now improved. 4. Moderate pulmonary hypertension. 5. Atrial fibrillation with RVR, now with controlled ventricular response. PLAN: Discontinue IV fluids. Patient is stable for discharge. Follow up with outpatient in about 1-2 weeks and continue to hold off on CA inhibitors for now. MMODL / IJN: [id number] /
--- NOTE | 2018-12-19 15:00 | P.PN ---
Subjective Progress Note Date: 12/19/18 This is a pleasant 68-year-old female patient with known history of coronary artery disease, prior coronary artery bypass grafting surgery, diabetes, hypertension, hyperlipidemia, paroxysmal atrial fibrillation for which she takes Coumadin and recent admission for diastolic congestive heart failure. She presents this admission because of complaints of generalized weakness and fatigue as well as some nausea and vomiting. Patient was seen and examined this morning, sitting up in the chair at bedside. Overall she feels well, she states she did not have a very good night last night because of several episodes of diarrhea. She denies any palpitations, no chest discomfort. Hemodynamically she is stable. I pressure 112/80 with a heart rate in the 100, 98% on room air. INR today is 1.6, sodium 132, potassium 3.2, BUN 57 and creatinine 3.3. 12/18/2018 Patient seen and examined this morning, continues to have some diarrhea. Overall she is doing better. Creatinine is improved today at 2.5, INR today is 1.1, blood pressure 110/60 and heart rate in the 70s. We will give her 7-1/2 mg of Coumadin today. Possible discharge home in 24 hours. 10/18/2019 Patient seen and examined this morning, overall doing well. INR today is 1.3, creatinine down to 1.7. Hemodynamically stable. Objective - Vital Signs Vital signs: Vital Signs Temp 98.3 F 12/19/18 08:00 Pulse 110 H 12/19/18 08:00 Resp 18 12/19/18 08:00 BP 123/55 12/19/18 08:00 Pulse Ox 98 12/19/18 08:00 Intake & Output 12/18/18 12/19/18 12/19/18 18:59 06:59 18:59 Intake Total 844 480 Balance 844 480 Weight 113.4 kg 114.1 kg Intake: Oral 844 480 Other: Voiding Method Toilet # Voids 1 3 2 # Bowel Movements 1 - Exam PHYSICAL EXAMINATION: HEENT: Head is atraumatic, normocephalic. Pupils equal, round. Neck is supple. There is no elevated jugular venous pressure. HEART EXAMINATION: Heart sounds irregularly irregular, S1 and S2 normal. No murmur or gallop heard. CHEST EXAMINATION: Lungs are clear to auscultation and precussion. No chest wall tenderness is noted on palpation or with deep breathing. ABDOMEN: Soft, obese, nontender. Bowel sounds are heard. No organomegaly noted. EXTREMITIES: 2+ peripheral pulses with no evidence of peripheral edema and no calf tenderness noted. NEUROLOGIC patient is awake, alert and oriented x3. - Labs CBC & Chem 7: 12/18/18 05:49 12/19/18 05:12 Labs: Abnormal Lab Results - Last 24 Hours (Table) 12/18/18 12/18/18 12/19/18 Range/Units 16:47 20:33 02:16 PT (9.0-12.0) sec INR (<1.2) Chloride (98-107) mmol/L Carbon Dioxide (22-30) mmol/L BUN (7-17) mg/dL Creatinine (0.52-1.04) mg/dL Glucose (74-99) mg/dL POC Glucose (mg/dL) 240 H 165 H 201 H (75-99) mg/dL 12/19/18 12/19/18 12/19/18 Range/Units 04:57 05:12 05:12 PT 13.2 H (9.0-12.0) sec INR 1.3 H (<1.2) Chloride 112 H (98-107) mmol/L Carbon Dioxide 21 L (22-30) mmol/L BUN 34 H (7-17) mg/dL Creatinine 1.76 H (0.52-1.04) mg/dL Glucose 104 H (74-99) mg/dL POC Glucose (mg/dL) 127 H (75-99) mg/dL 12/19/18 12/19/18 Range/Units 05:52 11:23 PT (9.0-12.0) sec INR (<1.2) Chloride (98-107) mmol/L Carbon Dioxide (22-30) mmol/L BUN (7-17) mg/dL Creatinine (0.52-1.04) mg/dL Glucose (74-99) mg/dL POC Glucose (mg/dL) 108 H 170 H (75-99) mg/dL Microbiology - Last 24 Hours (Table) 12/14/18 16:23 Blood Culture - Preliminary Blood No Growth after 96 hours Assessment and Plan Plan: Assessment: #1 typical atrial flutter with rapid ventricular response #2 acute kidney injury secondary to nausea, vomiting, dehydration #3 chronic diastolic congestive heart failure #4 history of CAD with prior bypass surgery #5 hypertension with episodes of hypotension #6 diabetes #7 hyperlipidemia Plan From cardiology's perspective, we'll recommend to continue the patient on her current medications. She may be able to be discharged home from our perspective, we'll make a follow-up appointment post discharge. DNP note has been reviewed, I agree with a documented findings and plan of care. Patient was seen and examined.
== END 2018-12-19 15:25 | disposition home or self-care (01) | DRG 682 ==
LOC: EC 15:25 → 3SCARD 17:55
PROVIDERS: ADMIT Internal Medicine; ATTEND Internal Medicine
DX: N17.0 Acute kidney failure with tubular necrosis (principal); I50.43 Acute on chronic combined systolic (congestive) and diastolic (congestive) heart failure; I48.3 Typical atrial flutter; I13.2 Hypertensive heart and chronic kidney disease with heart failure and with stage 5 chronic kidney disease, or end stage renal disease; E87.1 Hypo-osmolality and hyponatremia; I42.9 Cardiomyopathy, unspecified; N18.5 Chronic kidney disease, stage 5; E11.43 Type 2 diabetes mellitus with diabetic autonomic (poly)neuropathy; I48.0 Paroxysmal atrial fibrillation; E86.0 Dehydration; E87.6 Hypokalemia; E11.22 Type 2 diabetes mellitus with diabetic chronic kidney disease; E11.65 Type 2 diabetes mellitus with hyperglycemia; K21.9 Gastro-esophageal reflux disease without esophagitis; K31.84 Gastroparesis; E66.9 Obesity, unspecified; K59.00 Constipation, unspecified; T50.2X5A Adverse effect of carbonic-anhydrase inhibitors, benzothiadiazides and other diuretics, initial encounter; E78.5 Hyperlipidemia, unspecified; E86.1 Hypovolemia; G47.30 Sleep apnea, unspecified; I27.20 Pulmonary hypertension, unspecified; M47.9 Spondylosis, unspecified; N26.1 Atrophy of kidney (terminal); R79.1 Abnormal coagulation profile; I25.10 Atherosclerotic heart disease of native coronary artery without angina pectoris; M17.0 Bilateral primary osteoarthritis of knee; W01.0XXA Fall on same level from slipping, tripping and stumbling without subsequent striking against object, initial encounter; I95.9 Hypotension, unspecified; R19.7 Diarrhea, unspecified; E11.649 Type 2 diabetes mellitus with hypoglycemia without coma; Z79.891 Long term (current) use of opiate analgesic; Z79.899 Other long term (current) drug therapy; Z79.01 Long term (current) use of anticoagulants; Z79.4 Long term (current) use of insulin; Z79.82 Long term (current) use of aspirin; Z82.49 Family history of ischemic heart disease and other diseases of the circulatory system; Z83.3 Family history of diabetes mellitus; Z85.41 Personal history of malignant neoplasm of cervix uteri; Z90.710 Acquired absence of both cervix and uterus; Z95.1 Presence of aortocoronary bypass graft; I25.2 Old myocardial infarction
CPT/HCPCS: 36415; 71046; 74018; 76770; 80048; 80053; 81003; 82550; 82553; 83735; 83880; 84132; 84484; 85025; 85610; 85730; 87040; 87324; 87502; 96365; 96366; 96375; 96376; 99291